=== PATIENT | female | born 1955 | race Caucasian/White ===

== ENCOUNTER → 2016-09-14 | Outpatient (CLI) | payer BC, OTHER ==
[2016-09-14 08:21] LABS: CHCM 33.8; HCT 49.4 % (34.0-46.0); HDW 2.52; HGB 16.1 gm/dL (11.4-16.0); MCH 31.1 pg (25.0-35.0); MCHC 32.6 g/dL (31.0-37.0); MCV 95.3 fL (80.0-100.0); Mean Platelet Volume 6.8; RBC 5.18 m/uL (3.80-5.40); RDW 12.5 % (11.5-15.5)
[2016-09-14 11:27] LABS: Anion Gap 10 mmol/L; Blood Urea Nitrogen 15 mg/dL (7-17); Calcium 9.6 mg/dL (8.4-10.2); Carbon Dioxide 29 mmol/L (22-30); Chloride 104 mmol/L (98-107); Glucose 106 mg/dL (74-99); Non-African American GFR(MDRD) >60 (>60 ml/min/1.73 sqM); Potassium 4.6 mmol/L (3.5-5.1); Sodium 143 mmol/L (137-145); Total Protein 7.2 g/dL (6.3-8.2)
[2016-09-14 11:28] LABS: ALT 38 U/L (9-52); AST 25 U/L (14-36); Alkaline Phosphatase 64 U/L (38-126); Cholesterol 175 mg/dL (<200); HDL Cholesterol 37 mg/dL (40-60); Total Bilirubin 0.9 mg/dL (0.2-1.3); Triglycerides 190 mg/dL (<150)
[2016-09-14 14:45] LABS: Hepatitis C Virus IgG Ab Reactive (Negative)
== END | disposition home or self-care (01) ==
LOC: LABWHC1 07:37
PROVIDERS: ATTEND Family Medicine
DX: E03.9 Hypothyroidism, unspecified (principal); I10 Essential (primary) hypertension; Z13.9 Encounter for screening, unspecified
CPT/HCPCS: 36415; 80053; 80061; 84439; 84443; 84481; 85027; 86803

== ENCOUNTER → 2016-09-17 | Outpatient (CLI) | payer BC, OTHER ==
[2016-09-20 09:48] LABS: HCV Qualitative Result Not detected (Not detected)
== END | disposition home or self-care (01) ==
LOC: LABWHC1 07:20
PROVIDERS: ATTEND Family Medicine
DX: Z09 Encounter for follow-up examination after completed treatment for conditions other than malignant neoplasm (principal); Z86.19 Personal history of other infectious and parasitic diseases
CPT/HCPCS: 36415; 87522

== ENCOUNTER 2016-11-06 08:26 | Emergency (ER) | payer BC, OTHER ==
[2016-11-06 08:32] VITALS: BP 132/87; PULSE 69; RESP 20; TEMP 98.8
[2016-11-06] MEDS ORDERED: ORPHENADRINE 30 MG/ML 2 ML VIAL IM STA (08:43)
[2016-11-06] MEDS ORDERED: KETOROLAC 60 MG/2 ML VIAL IM STA (08:43)
--- NOTE | 2016-11-06 08:48 | ED ---
Back Pain HPI - General Chief Complaint: Back Pain/Injury Stated Complaint: back pain Time Seen by Provider: 11/06/16 08:32 Source: patient Limitations: no limitations - History of Present Illness Initial Comments: 61-year-old female patient presents to emergency department today for complaints of low back pain that radiates down her left anterior thigh to just above her knee. Patient states that this started this morning when she was sitting down and went to stand up she felt that her back "wrenched". Patient states she did have a similar episode to this about 10 years ago and was told that she had a pinched nerve. Patient denies any injury or fall. Patient denies any loss of bowel or bladder control, numbness, tingling, saddle paresthesia, chest pain, shortness of breath, nausea, vomiting, dysuria, urinary urgency, urinary frequency, diarrhea, or constipation. Patient states she is having some right lower quadrant abdominal pain that started a few days ago. Patient states that she was told previously she had an ovarian cyst on ultrasound. - Related Data Home Medications Medication Instructions Recorded Confirmed Hydrochlorothiazide [Hydrodiuril] 25 mg PO DAILY 05/22/14 06/27/14 Levothyroxine Sodium [Synthroid] 50 mcg PO DAILY 05/22/14 06/27/14 Lisinopril [Zestril] 5 mg PO DAILY 05/22/14 06/27/14 Pravastatin Sodium [Pravachol] 40 mg PO DAILY 05/22/14 06/27/14 Previous Rx's Medication Instructions Recorded Meclizine [Antivert] 25 mg PO TID PRN #20 tab 05/22/14 Ondansetron [Zofran ODT] 8 mg PO Q8HR PRN #12 tab 05/22/14 Cyclobenzaprine [Flexeril] 10 mg PO TID PRN #15 tab 11/06/16 Hydrocodone/Acetaminophen [Waverly 1 tab PO Q6HR PRN #15 tab 11/06/16 5-325] Ibuprofen [Motrin] 600 mg PO Q8HR PRN #30 tab 11/06/16 Allergies Allergy/AdvReac Type Severity Reaction Status Date / Time No Known Allergies Allergy Verified 11/06/16 08:31 Review of Systems ROS Statement: Those systems with pertinent positive or pertinent negative responses have been documented in the HPI. ROS Other: All systems not noted in ROS Statement are negative. Past Medical History Past Medical History: Hypertension, Thyroid Disorder Additional Past Medical History / Comment(s): back pain History of Any Multi-Drug Resistant Organisms: None Reported Past Surgical History: Adenoidectomy, Cholecystectomy, Tonsillectomy Past Psychological History: No Psychological Hx Reported Smoking Status: Former smoker Past Alcohol Use History: Occasional Past Drug Use History: None Reported General Exam Limitations: no limitations General appearance: alert, in no apparent distress Head exam: Present: atraumatic, normocephalic, normal inspection Eye exam: Present: normal appearance, PERRL, EOMI. Absent: scleral icterus, conjunctival injection, periorbital swelling ENT exam: Present: normal exam, normal oropharynx, mucous membranes moist Neck exam: Present: normal inspection. Absent: tenderness, meningismus, lymphadenopathy Respiratory exam: Present: normal lung sounds bilaterally. Absent: respiratory distress, wheezes, rales, rhonchi, stridor Cardiovascular Exam: Present: regular rate, normal rhythm, normal heart sounds. Absent: systolic murmur, diastolic murmur, rubs, gallop, clicks GI/Abdominal exam: Present: soft, normal bowel sounds. Absent: distended, tenderness, guarding, rebound, rigid Extremities exam: Present: normal inspection, full ROM, normal capillary refill. Absent: tenderness, pedal edema, joint swelling, calf tenderness Back exam: Present: normal inspection. Absent: full ROM (Pain with twisting, forward bend, hyperextension.), tenderness, CVA tenderness (R), CVA tenderness ( L), muscle spasm, paraspinal tenderness, vertebral tenderness Expanded Back exam: Absent: saddle anesthesia Back exam: Positive Straight Leg Raise: Left Neurological exam: Present: alert, oriented X3, CN II-XII intact Psychiatric exam: Present: normal affect, normal mood Skin exam: Present: warm, dry, intact, normal color. Absent: rash Course Vital Signs 11/06/16 08:29 Temperature 98.8 F Pulse Rate 69 Respiratory 20 Rate Blood Pressure 132/87 O2 Sat by Pulse 97 Oximetry Medical Decision Making - Medical Decision Making 61-year-old female patient came in with complaints of lower back pain that radiated down her anterior left thigh. Symptoms and physical exam are consistent with musculoskeletal cause and sciatica. Patient also was complaining of some right lower quadrant abdominal pain that started a few days ago. Physical exam is unremarkable, abdomen nontender. Patient refuses urinalysis and further workup for this abdominal pain and states she will follow -up with her doctor for this. She will be given IM Toradol and Norflex for back pain. She'll be discharged with prescriptions for Motrin, Waverly, and Flexeril as well as instructions to apply warm, moist heat and to perform gentle stretching exercises. Patient instructed to follow up with her primary care doctor in 1-2 days for recheck. Patient instructed to return for any worsening, new, or concerning symptoms. Patient verbalizes understanding and agrees to this plan. Disposition Clinical Impression: Acute low back pain, Sciatica Disposition: HOME SELF-CARE Condition: Stable Instructions: Acute Low Back Pain (ED) Additional Instructions: Warm, moist, heat to the painful areas. Gentle stretching exercises. Activity as tolerated. Follow up with primary care physician in 1-2 days for recheck. Return for any worsening, new, or concerning symptoms. Prescriptions: Cyclobenzaprine [Flexeril] 10 mg PO TID PRN #15 tab PRN Reason: Muscle Spasm Hydrocodone/Acetaminophen [Waverly 5-325] 1 tab PO Q6HR PRN #15 tab PRN Reason: Pain Ibuprofen [Motrin] 600 mg PO Q8HR PRN #30 tab PRN Reason: Pain Referrals: Babak Fiore MD [Primary Care Provider] - 1-2 days Time of Disposition: 08:48
== END 2016-11-06 09:04 | disposition home or self-care (01) ==
LOC: EC 08:26
DX: M54.40 Lumbago with sciatica, unspecified side (principal); R10.31 Right lower quadrant pain; I10 Essential (primary) hypertension; E07.9 Disorder of thyroid, unspecified; Z87.891 Personal history of nicotine dependence; Z79.899 Other long term (current) drug therapy
CPT/HCPCS: 99283; 96372 ×2; J2360; J1885

== ENCOUNTER 2016-11-24 23:43 | Inpatient (IN) | payer BC ==
[2016-11-25] MEDS ORDERED: DILTIAZEM 125 MG in SODIUM CHLORIDE 0.9% 100 ML IV STA (00:39)
[2016-11-25] MEDS ORDERED: ASPIRIN 81 MG CHEW PO STA (00:39)
[2016-11-25] MEDS ORDERED: SODIUM CHLORIDE 0.9% 500 ML IV STA (00:39)
[2016-11-25 00:59] LABS: Basophils # (A) 0.1 k/uL (0-0.2); Basophils % (A) 2 %; CH 32.7; CHCM 33.9; Eosinophils # (A) 0.7 k/uL (0-0.7); Eosinophils % (A) 8 %; HCT 49.6 % (34.0-46.0); HGB 16.3 gm/dL (11.4-16.0); Luc # (Auto) 0.32; Luc % (Auto) 4; Lymphocytes # (A) 3.3 k/uL (1.0-4.8); Lymphocytes % (A) 37 %; MCH 31.8 pg (25.0-35.0); MCHC 32.8 g/dL (31.0-37.0); Mean Platelet Volume 7.2; Monocytes # (A) 0.6 k/uL (0-1.0); Monocytes % (A) 7 %; Neutrophils # (A) 3.8 k/uL (1.3-7.7); Neutrophils % (A) 43 %; RBC 5.11 m/uL (3.80-5.40); RDW 13.2 % (11.5-15.5); WBC 8.9 k/uL (3.8-10.6); WBC (Perox) 8.27
[2016-11-25 01:04] LABS: ALT 38 U/L (9-52); AST 30 U/L (14-36); Alkaline Phosphatase 57 U/L (38-126); Anion Gap 13 mmol/L; Blood Urea Nitrogen 18 mg/dL (7-17); Calcium 9.7 mg/dL (8.4-10.2); Carbon Dioxide 22 mmol/L (22-30); Chloride 106 mmol/L (98-107); Glucose 134 mg/dL (74-99); Non-African American GFR(MDRD) >60 (>60 ml/min/1.73 sqM); Potassium 4.2 mmol/L (3.5-5.1); Sodium 141 mmol/L (137-145); Total Bilirubin 0.5 mg/dL (0.2-1.3); Total Protein 7.1 g/dL (6.3-8.2)
[2016-11-25 01:12] LABS: Creatine Kinase 142 U/L (30-135)
[2016-11-25 01:15] LABS: Partial Thromboplastin Time 24.9 sec (22.0-30.0)
[2016-11-25 01:20] LABS: Prothrombin Time 10.6 sec (9.0-12.0)
[2016-11-25 01:25] LABS: Creatine Kinase MB 1.5 ng/mL (0.0-2.4); Troponin I <0.012 ng/mL (0.000-0.034)
--- NOTE | 2016-11-25 01:30 | XR ---
EXAM: XR Chest, 1 View. CLINICAL HISTORY: Reason: dysrhythmia TECHNIQUE: Frontal view of the chest. COMPARISON: No relevant prior studies available. FINDINGS: Lungs: Strandy right base opacity suggesting subsegmental atelectasis or fibrotic scarring. Lungs are otherwise clear without acute infiltrates or consolidations. Pleural space: No evidence of pneumothorax or pleural effusion. Heart: Heart size is within normal limits. Mediastinum: Mediastinal structures are unremarkable. Bones/joints: Unremarkable. IMPRESSION: Mild right base subsegmental atelectasis or fibrotic scarring. No evidence of acute cardiopulmonary disease.
--- NOTE | 2016-11-25 01:46 | ED ---
Arrhythmia/Palpitations HPI - General Chief Complaint: Arrhythmia/Palpitations Stated Complaint: heart racing Time Seen by Provider: 11/25/16 00:26 Source: patient Mode of arrival: ambulatory Limitations: no limitations - History of Present Illness Initial Comments: This patient is a 61-year-old woman who presents to be evaluated for a rapid heartbeat and some shortness of breath that started this evening. The patient states that she had gone to do her usual exercise and then afterwards noticed that she was having the symptoms. She denies previous history of arrhythmia. She is not having any chest pain, diaphoresis, nausea or vomiting. She does have a feeling of a tightness under her jaw area. MD Complaint: "heart racing" -: hour(s) Context: occurred during rest Associated Symptoms: shortness of breath - Related Data Home Medications Medication Instructions Recorded Confirmed Hydrochlorothiazide [Hydrodiuril] 25 mg PO DAILY 05/22/14 11/24/16 Levothyroxine Sodium [Synthroid] 50 mcg PO DAILY 05/22/14 11/24/16 Lisinopril [Zestril] 5 mg PO DAILY 05/22/14 11/24/16 Pravastatin Sodium [Pravachol] 40 mg PO DAILY 11/24/16 11/24/16 Allergies Allergy/AdvReac Type Severity Reaction Status Date / Time No Known Allergies Allergy Verified 11/24/16 23:48 Review of Systems ROS Statement: Those systems with pertinent positive or pertinent negative responses have been documented in the HPI. ROS Other: All systems not noted in ROS Statement are negative. Constitutional: Denies: fever, chills, weakness Eyes: Denies: vision change Respiratory: Reports: dyspnea. Denies: cough, wheezes Cardiovascular: Reports: palpitations. Denies: chest pain, orthopnea, edema, syncope Gastrointestinal: Denies: abdominal pain, nausea, vomiting Musculoskeletal: Denies: back pain Skin: Denies: rash Neurological: Denies: headache, weakness, numbness Psychiatric: Reports: anxiety Past Medical History Past Medical History: Hypertension, Thyroid Disorder Additional Past Medical History / Comment(s): back pain, palpitations History of Any Multi-Drug Resistant Organisms: None Reported Past Surgical History: Adenoidectomy, Cholecystectomy, Tonsillectomy Past Psychological History: No Psychological Hx Reported Smoking Status: Former smoker Past Alcohol Use History: Occasional Past Drug Use History: None Reported General Exam Limitations: no limitations General appearance: alert, in no apparent distress Head exam: Present: atraumatic, normocephalic, normal inspection Eye exam: Present: normal appearance. Absent: scleral icterus, conjunctival injection ENT exam: Present: normal oropharynx Neck exam: Present: normal inspection, full ROM Respiratory exam: Present: normal lung sounds bilaterally. Absent: respiratory distress, wheezes, rales, rhonchi, stridor Cardiovascular Exam: Present: tachycardia, irregular rhythm, normal heart sounds. Absent: systolic murmur, diastolic murmur, rubs, gallop GI/Abdominal exam: Present: soft. Absent: distended, tenderness, guarding, rebound, mass Extremities exam: Present: normal inspection, normal capillary refill. Absent: pedal edema, calf tenderness Neurological exam: Present: alert Skin exam: Present: warm, dry, intact, normal color. Absent: rash Course Vital Signs 11/24/16 23:44 Temperature 99.7 F H Pulse Rate 142 H Respiratory 24 Rate Blood Pressure 133/90 O2 Sat by Pulse 95 Oximetry - Reevaluation(s) Reevaluation #1: 11/25/16 01:50 The patient has reverted to sinus rhythm with the Cardizem. The patient's symptoms have resolved. Lungs remain clear to auscultation and heart is now regular rate and rhythm with the rate being in the 80s. 11/25/16 01:51 The repeat EKG shows sinus rhythm with a rate of approximately 72 bpm.. EKG Findings - EKG Results: EKG: interpreted by ERMD, normal axis, normal QRS, normal ST/T EKG shows: atrial fibrillation (Rhythm appears to be atrial fibrillation though flutter possible. Rate approximately 142 bpm.) Medical Decision Making - Medical Decision Making This patient is a 61-year-old woman with the acute onset of atrial fibrillation this evening. She also describes what may have been some anginal pain in the neck or throat that did accompany the tachycardia. The patient has family history that she states is strongly positive for heart disease. She has not had a stress test for number of years. Given these factors will admit the patient to have telemetry monitoring and serial cardiac enzymes as well as cardiology consultation. - Lab Data Result diagrams: 11/24/16 23:20 11/24/16 23:20 Lab Results 11/24/16 11/24/1617 Range/Units 23:20 23:20 23:20 WBC 8.9 (3.8-10.6) k/uL RBC 5.11 (3.80-5.40) m/uL Hgb 16.3 H (11.4-16.0) gm/dL Hct 49.6 H (34.0-46.0) % MCV 97.0 (80.0-100.0) fL MCH 31.8 (25.0-35.0) pg MCHC 32.8 (31.0-37.0) g/dL RDW 13.2 (11.5-15.5) % Plt Count 321 (150-450) k/uL Neutrophils % 43 % Lymphocytes % 37 % Monocytes % 7 % Eosinophils % 8 % Basophils % 2 % Neutrophils # 3.8 (1.3-7.7) k/uL Lymphocytes # 3.3 (1.0-4.8) k/uL Monocytes # 0.6 (0-1.0) k/uL Eosinophils # 0.7 (0-0.7) k/uL Basophils # 0.1 (0-0.2) k/uL PT (9.0-12.0) sec INR (<1.1) APTT (22.0-30.0) sec D-Dimer (<0.60) mg/L FEU Sodium 141 (137-145) mmol/L Potassium 4.2 (3.5-5.1) mmol/L Chloride 106 (98-107) mmol/L Carbon Dioxide 22 (22-30) mmol/L Anion Gap 13 mmol/L BUN 18 H (7-17) mg/dL Creatinine 0.80 (0.52-1.04) mg/dL Est GFR (MDRD) Af Amer >60 (>60 ml/min/1.73 sqM) Est GFR (MDRD) Non-Af >60 (>60 ml/min/1.73 sqM) Glucose 134 H (74-99) mg/dL Calcium 9.7 (8.4-10.2) mg/dL Magnesium 2.0 (1.6-2.3) mg/dL Total Bilirubin 0.5 (0.2-1.3) mg/dL AST 30 (14-36) U/L ALT 38 (9-52) U/L Alkaline Phosphatase 57 (38-126) U/L Total Creatine Kinase 142 H (30-135) U/L CK-MB (CK-2) 1.5 (0.0-2.4) ng/mL CK-MB (CK-2) Rel Index 1.1 Troponin I <0.012 (0.000-0.034) ng/mL Total Protein 7.1 (6.3-8.2) g/dL Albumin 4.1 (3.5-5.0) g/dL TSH 2.610 (0.465-4.680) mIU/L 11/24/16 Range/Units 23:20 WBC (3.8-10.6) k/uL RBC (3.80-5.40) m/uL Hgb (11.4-16.0) gm/dL Hct (34.0-46.0) % MCV (80.0-100.0) fL MCH (25.0-35.0) pg MCHC (31.0-37.0) g/dL RDW (11.5-15.5) % Plt Count (150-450) k/uL Neutrophils % % Lymphocytes % % Monocytes % % Eosinophils % % Basophils % % Neutrophils # (1.3-7.7) k/uL Lymphocytes # (1.0-4.8) k/uL Monocytes # (0-1.0) k/uL Eosinophils # (0-0.7) k/uL Basophils # (0-0.2) k/uL PT 10.6 (9.0-12.0) sec INR 1.0 (<1.1) APTT 24.9 (22.0-30.0) sec D-Dimer 0.54 (<0.60) mg/L FEU Sodium (137-145) mmol/L Potassium (3.5-5.1) mmol/L Chloride (98-107) mmol/L Carbon Dioxide (22-30) mmol/L Anion Gap mmol/L BUN (7-17) mg/dL Creatinine (0.52-1.04) mg/dL Est GFR (MDRD) Af Amer (>60 ml/min/1.73 sqM) Est GFR (MDRD) Non-Af (>60 ml/min/1.73 sqM) Glucose (74-99) mg/dL Calcium (8.4-10.2) mg/dL Magnesium (1.6-2.3) mg/dL Total Bilirubin (0.2-1.3) mg/dL AST (14-36) U/L ALT (9-52) U/L Alkaline Phosphatase (38-126) U/L Total Creatine Kinase (30-135) U/L CK-MB (CK-2) (0.0-2.4) ng/mL CK-MB (CK-2) Rel Index Troponin I (0.000-0.034) ng/mL Total Protein (6.3-8.2) g/dL Albumin (3.5-5.0) g/dL TSH (0.465-4.680) mIU/L Critical Care Time Critical Care Time: Yes (30 minutes) Disposition Clinical Impression: Atrial fibrillation, Chest pain Disposition: HOME SELF-CARE Condition: Fair Referrals: Babak Fiore MD [Primary Care Provider] - 1-2 days
[2016-11-25] MEDS ORDERED: NITROGLYCERIN SL TABS 0.4 MG TAB SUBLINGUAL PRN (01:52)
[2016-11-25 07:21] LABS: Creatine Kinase 106 U/L (30-135)
[2016-11-25 07:33] LABS: Creatine Kinase MB 1.3 ng/mL (0.0-2.4); Troponin I <0.012 ng/mL (0.000-0.034)
--- NOTE | 2016-11-25 09:38 | P.CRDCN ---
History of Present Illness Consult date: 11/25/16 Requesting physician: Jb Leo Consult reason: atrial fibrillation Chief complaint: Palpitations History of present illness: This is a pleasant 61-year-old female with history of hypertension, Hailee's, prior history of smoking, who presents to the hospital with symptoms of feeling her heart racing fast with associated lightheadedness and shaking. She states that she was working out in the pool at the [facility] when she first noticed the symptoms, she drank a lot of water hoping that the symptoms would subside, in the evening she still felt her heart racing fast, was afraid to go to sleep and came to the emergency room for further evaluation. According to the patient, on almost a daily basis she does notice her heart racing fast and irregular, although it usually subsides within seconds. This occasion was different in the fact that it persisted. Patient states she does drink a minimum of 3-4 cups of coffee per day. No alcohol. She denies any chest pressure or heaviness. EKG on arrival showed atrial fibrillation with a rapid ventricular response, blood pressure was 133/90 with a heart rate of 142 at that time. Temperature on admission 99.7. Subsequently the patient did convert to normal sinus rhythm at the time of my examination continues to be in a normal sinus rhythm. Laboratory data was reviewed, WBC 8.9, hemoglobin 16.3, d-dimer 0.5, potassium 4.2, BUN 18, creatinine 0.8. Troponins have been negative 2. Chest x-ray was performed which revealed mild right base subsegmental atelectasis or fibrotic scarring no acute infiltrates or consolidation. At the time of my examination this morning, patient feels well, denies any further palpitations, no dizziness or lightheadedness. She is currently on aspirin, Cardizem drip at 5 mg per hour, Hydrocort Dyazide, Synthroid 50 g daily, Zestril 5 mg daily, and pravastatin 40 mg 1 tablet daily. Patient was not initiated on blood thinners. Past Medical History Past Medical History: Hypertension, Thyroid Disorder Additional Past Medical History / Comment(s): back pain, palpitations History of Any Multi-Drug Resistant Organisms: None Reported Past Surgical History: Adenoidectomy, Cholecystectomy, Tonsillectomy Past Psychological History: No Psychological Hx Reported Smoking Status: Former smoker Past Alcohol Use History: Occasional Past Drug Use History: None Reported Medications and Allergies Home Medications Medication Instructions Recorded Confirmed Type Levothyroxine Sodium [Synthroid] 50 mcg PO DAILY 05/22/14 11/25/16 History Lisinopril [Zestril] 5 mg PO DAILY 05/22/14 11/25/16 History Hydrochlorothiazide [Hydrodiuril] 12.5 mg PO DAILY 11/25/16 11/25/16 History Allergies Allergy/AdvReac Type Severity Reaction Status Date / Time No Known Allergies Allergy Verified 11/24/16 23:48 Physical Exam Vitals: Vital Signs Pulse Resp BP Pulse Ox 11/25/16 07:15 65 18 116/71 96 11/25/16 04:46 64 18 100/59 96 11/25/16 03:00 65 18 96/59 97 11/25/16 02:00 91 18 109/80 96 PHYSICAL EXAMINATION: HEENT: Head is atraumatic, normocephalic. Pupils equal, round. Neck is supple. There is no elevated jugular venous pressure. HEART EXAMINATION: Heart S1, S2 normal. No murmur or gallop heard. CHEST EXAMINATION: Lungs are clear with diminished air entry to bilateral bases. ABDOMEN: Soft, nontender. Bowel sounds are heard. No organomegaly noted. EXTREMITIES: 2+ peripheral pulses with no evidence of peripheral edema and no calf tenderness noted. NEUROLOGIC patient is awake, alert and oriented -3. . Results 11/24/16 23:20 11/24/16 23:20 Cardiac Enzymes 11/25/16 Range/Units 06:35 CK-MB (CK-2) 1.3 (0.0-2.4) ng/mL Troponin I <0.012 (0.000-0.034) ng/mL Current Medications Generic Name Dose Route Start Last Admin Trade Name Freq PRN Reason Stop Dose Admin Aspirin 325 mg 11/26/16 09:00 Aspirin PO DAILY GUERO Hydrochlorothiazide 25 mg 11/25/16 09:00 Hydrodiuril PO DAILY GUERO Diltiazem HCl 125 mg/ Sodium 125 mls @ 5 mls/hr 11/25/16 00:39 11/25/16 01:03 Chloride IV 11/26/16 00:38 5 mg/hr .Q24H STA 5 mls/hr Protocol Administration 5 MG/HR Levothyroxine Sodium 50 mcg 11/25/16 09:00 Synthroid PO DAILY [facility] Lisinopril 5 mg 11/25/16 09:00 Zestril PO DAILY [facility] Nitroglycerin 0.4 mg 11/25/16 01:52 Nitrostat SUBLINGUAL Q5M PRN Chest Pain Pravastatin Sodium 40 mg 11/25/16 09:00 Pravachol PO DAILY [facility] Sodium Chloride 10 ml 11/25/16 09:00 Saline Flush IV BID [facility] EKG Interpretations (text) Initial EKG showed atrial fibrillation with a rapid ventricular response. This morning's EKG shows normal sinus rhythm with no acute changes. Assessment and Plan Plan: Assessment and plan #1 atrial fibrillation with rapid ventricular response, appears to be of new onset. Paroxysmal in nature. Currently in normal sinus rhythm. #2 history of hypertension #3 history of Hailee's #4 prior history of smoking Plan We will obtain an echocardiogram with Doppler study. We will also request a free T4 and a TSH level be obtained. We'll discontinue the patient's IV Cardizem drip. Patient's chadsvasc score is 2, which puts her at a moderate high risk. We will check to see if the patient has coverage for one of the newer anticoagulants. Further recommendations will be based on these findings and patient's clinical course. DNP note has been reviewed, I agree with a documented findings and plan of care. Patient was seen and examined.
[2016-11-25] MEDS: LEVOTHYROXINE 50 MCG TAB PO SCH (10:27)
[2016-11-25] MEDS: HYDROCHLOROTHIAZIDE 25 MG TAB PO SCH (10:27)
[2016-11-25] MEDS: LISINOPRIL 5 MG TAB PO SCH (10:27)
[2016-11-25] MEDS: PRAVASTATIN SODIUM 40 MG TAB PO SCH (10:30)
[2016-11-25] MEDS: APIXABAN 5 MG TAB PO SCH ×2 (10:35→20:50)
--- NOTE | 2016-11-25 11:49 | ECHOF ---
Referral Reason:afib MEASUREMENTS -------- HEIGHT: 162.6 cm WEIGHT: 93.4 kg BP: 116/71 IVSd: 1.1 cm (0.6 - 1.1) LVIDd: 3.1 cm (3.9 - 5.3) LVPWd: 1.3 cm (0.6 - 1.1) IVSs: 1.7 cm LVIDs: 1.2 cm LVPWs: 1.4 cm Ao Diam: 2.8 cm (2.0 - 3.7) AV Cusp: 1.9 cm (1.5 - 2.6) LA Diam: 2.8 cm (2.7 - 3.8) MV EXCURSION: 17.007 mm (> 18.000) MV EF SLOPE: 121 mm/s (70 - 150) EPSS: 0.3 cm MV E Francisco: 0.66 m/s MV DecT: 220 ms MV A Francisco: 0.63 m/s MV E/A Ratio: 1.05 RAP: 5.00 mmHg RVSP: 9.49 mmHg FINDINGS -------- Sinus rhythm. This was a technically good study. There is mild concentric left ventricular hypertrophy. Overall left ventricular systolic function is normal with, an EF between 55 - 60 %. The right ventricle is normal in size and function. The left atrium is normal in size. The right atrium is normal in size. The aortic valve is trileaflet, and appears structurally normal. No aortic stenosis or regurgitation. There is trace mitral regurgitation. Trace tricuspid regurgitation present. The right ventricular systolic pressure, as measured by Doppler, is 9.49mmHg. Pulmonic valve appears structurally normal. The aortic root, ascending aorta and aortic arch are normal. The pericardium is normal. CONCLUSIONS -------- 1. Sinus rhythm. 2. Trace tricuspid regurgitation present. 3. The right ventricular systolic pressure, as measured by Doppler, is 9.49mmHg. 4. Pulmonic valve appears structurally normal. 5. The aortic root, ascending aorta and aortic arch are normal. 6. The pericardium is normal. 7. This was a technically good study. 8. There is mild concentric left ventricular hypertrophy. 9. Overall left ventricular systolic function is normal with, an EF between 55 - 60 %. 10. The right ventricle is normal in size and function. 11. The left atrium is normal in size. 12. The right atrium is normal in size. 13. The aortic valve is trileaflet, and appears structurally normal. No aortic stenosis or regurgitation. 14. There is trace mitral regurgitation. BICYCLE INSPECTOR: Wanda Palacios RDCS
[2016-11-25 12:32] LABS: Creatine Kinase 94 U/L (30-135)
[2016-11-25 12:45] LABS: Creatine Kinase MB 1.1 ng/mL (0.0-2.4); Troponin I <0.012 ng/mL (0.000-0.034)
[2016-11-25] MEDS: METOPROLOL TARTRATE 12.5 MG TAB PO SCH ×2 (16:32→20:51)
--- NOTE | 2016-11-25 18:18 | HP ---
DATE OF ADMISSION: 11/25/2016 PRESENTING COMPLAINT: Palpitation. HISTORY OF PRESENTING COMPLAINT: This is a pleasant 61-year-old patient of Dr. Fiore, chronic stable medical conditions include hypertension, hypothyroid, and insomnia. The patient lives at the [facility] and just felt rundown and also felt the heart racing, slightly short of breath, felt lightheaded. Some discomfort in the jaw and decided to come in. Found to be in atrial fibrillation with rapid ventricular rate. Patient is put on IV Cardizem then patient subsequently converted to the telemetry floor. The patient does drink a lot of caffeine. Denies any obvious chest pressure. REVIEW OF SYSTEMS: CONSTITUTIONAL: Tired. HEENT: None. RESPIRATORY: As above. CARDIOVASCULAR: Above. GASTROINTESTINAL: None. GENITOURINARY: None. MUSCULOSKELETAL: None. DERMATOLOGIC: None. HEMATOLOGIC: None. LYMPHATICS: None. PSYCHIATRY: Trouble sleeping. NEUROLOGICAL: None. Past history of hypertension, hypothyroid, insomnia. PAST SURGICAL HISTORY: Appendectomy, cholecystectomy, tonsillectomy. SOCIAL HISTORY: The patient has an adult daughter and a grandchild and 2 foster children. Does not smoke. Alcohol occasionally. Drinks a lot of caffeine. Has foster children. FAMILY HISTORY: Coronary artery disease and diabetes. Father had liver cancer. HOME MEDICATIONS: 1. Hydrochlorothiazide 25 mg p.o. daily. 2. Synthroid 50 mcg p.o. daily. 3. Zestril 5 mg p.o. daily. 4. Pravachol 40 mg p.o. daily. ALLERGIES: None. PHYSICAL EXAMINATION: Vital signs on presentation: Temperature 99.7, pulse 142, respirations 24, blood pressure 133/90, pulse ox 95% on room air. GENERAL APPEARANCE: Well built, BMI of 35.4, sitting up, not in distress. EYES: Pupils equal. Conjunctivae normal. HEENT: External appearance of nose and ears normal. Oral cavity normal. NECK: JVD not raised. Mass not palpable. RESPIRATORY: Effort normal. LUNGS: Clear. CARDIOVASCULAR: First and second sounds normal. No edema. ABDOMEN: Soft, nontender. Liver and spleen not palpable. LYMPHATIC: No lymph node palpable in neck or axillae. PSYCHIATRY: Alert and oriented x3. Mood and affect normal. NEUROLOGICAL: Pupils equal. Cranial nerves grossly intact. Power and sensation grossly intact. INVESTIGATIONS: EKG shows atrial flutter with rapid ventricular rate on presentation. EKG shows some atelectasis. A 2-D echocardiogram, preserved LV function. ASSESSMENT: 1. New onset paroxysmal atrial flutter, did convert to sinus rhythm within 24 hours by IV Cardizem. Patient had a similar episode before. 2. Essential hypertension. 3. Hypothyroidism. 4. Obesity, body mass index of 35.4. 5. Excessive nicotine intake in the form of coffee. 6. Chronic insomnia, idiopathic. PLAN: Cardiology was consulted. Patient initially was put on IV Cardizem drip. Patient did convert over to sinus rhythm. Lopressor was started. Patient will need anticoagulation. Care was discussed with the patient and also counseled against taking caffeine.
[2016-11-26] MEDS: LEVOTHYROXINE 50 MCG TAB PO SCH (08:07)
[2016-11-26] MEDS: APIXABAN 5 MG TAB PO SCH (08:07)
[2016-11-26] MEDS: HYDROCHLOROTHIAZIDE 25 MG TAB PO SCH (08:07)
[2016-11-26] MEDS: LISINOPRIL 5 MG TAB PO SCH (08:08)
[2016-11-26] MEDS: METOPROLOL TARTRATE 12.5 MG TAB PO SCH (08:08)
[2016-11-26] MEDS: PRAVASTATIN SODIUM 40 MG TAB PO SCH (08:09)
[2016-11-26] MEDS ORDERED: ASPIRIN 81 MG CHEW PO SCH (09:00)
[2016-11-26] MEDS ORDERED: ASPIRIN 325 MG TAB PO SCH (09:00)
[2016-11-26 10:34] VITALS: RESP 16; TEMP 98.2
--- NOTE | 2016-11-26 15:09 | PN ---
Mrs. Mckenna is in a sinus rhythm this morning, doing well, denies chest pain, stable, feeling well, walking around without symptoms. She is going to go home on Lopressor and Eliquis. Advised to see me in a couple of weeks, to call me sooner for question, concern or problem. Vital signs are stable. S1, S2 heard normally. Lungs are clear. Abdomen and lower extremity exam is unchanged.
[2016-11-26 16:11] VITALS: BP 112/65; PULSE 63
--- NOTE | 2016-11-27 12:02 | DS ---
DATE OF ADMISSION: 11/25/2016 DATE OF DISCHARGE: 11/26/2016 FINAL DIAGNOSES: 1. Paroxysmal atrial flutter fibrillation. 2. Essential hypertension. 3. Hypothyroidism. 4. Obesity, body mass index of 35.4. 5. Excessive nicotine intake in the form of coffee. 6. Chronic insomnia, idiopathic. HOSPITAL COURSE: This patient presented with palpitation, found to be A. flutter rapid ventricular rate, put on IV Cardizem drip, ( ) into sinus rhythm. A 2-D echocardiogram showed preserved LV function. Patient advised against excessive coffee intake. Patient's TSH was normal. LDL was 111. Troponins were negative. Patient is asymptomatic up and about at the time of discharge. On exam, lungs are clear. CARDIOVASCULAR: First and second sounds normal. CONSULTATION: Dr. Cheyenne Mata from cardiology. DISCHARGE MEDICATIONS: 1. Synthroid 50 mcg p.o. daily. 2. Eliquis 5 mg p.o. b.i.d. 3. Lopressor 12.5 p.o. b.i.d. 4. Pravachol 40 mg p.o. daily. Patient's questions were addressed including anticoagulation. Follow up with Dr. Cheyenne Mata in 2 weeks; Dr. Fiore in one week.
== END 2016-11-26 16:44 | disposition home or self-care (01) | DRG 310 ==
LOC: EC 23:43 → 6SEL 11-25 01:52 → 2CATHESU 11-25 07:53 → 6SEL 11-25 11:30
PROVIDERS: ADMIT Hospitalist; ATTEND Hospitalist
DX: I48.92 Unspecified atrial flutter (principal); I10 Essential (primary) hypertension; G47.9 Sleep disorder, unspecified; E06.3 Autoimmune thyroiditis; F51.01 Primary insomnia; I48.0 Paroxysmal atrial fibrillation; M54.9 Dorsalgia, unspecified; R07.9 Chest pain, unspecified; R42 Dizziness and giddiness; F41.9 Anxiety disorder, unspecified; R06.02 Shortness of breath; E66.9 Obesity, unspecified; Z68.35 Body mass index [BMI] 35.0-35.9, adult; Z83.3 Family history of diabetes mellitus; Z80.0 Family history of malignant neoplasm of digestive organs; Z82.49 Family history of ischemic heart disease and other diseases of the circulatory system; Z79.899 Other long term (current) drug therapy; Z87.891 Personal history of nicotine dependence; Z90.49 Acquired absence of other specified parts of digestive tract
CPT/HCPCS: 36415; 71010; 80053; 80061; 82550; 82553; 83735; 84439; 84443; 84484; 85025; 85379; 85610; 85730; 93005; 93306; 99291

== ENCOUNTER → 2017-08-26 | Outpatient (CLI) | payer BC ==
[2017-08-26 10:09] LABS: HCT 50.8 % (34.0-46.0); HGB 16.2 gm/dL (11.4-16.0); MCH 30.5 pg (25.0-35.0); MCHC 31.8 g/dL (31.0-37.0); MCV 96.1 fL (80.0-100.0); Mean Platelet Volume 7.3; Platelet Count 340 k/uL (150-450); RBC 5.29 m/uL (3.80-5.40)
[2017-08-26 10:24] LABS: ALT 53 U/L (9-52); AST 36 U/L (14-36); Albumin 4.3 g/dL (3.5-5.0); Alkaline Phosphatase 55 U/L (38-126); Anion Gap 12 mmol/L; Blood Urea Nitrogen 18 mg/dL (7-17); Calcium 9.8 mg/dL (8.4-10.2); Carbon Dioxide 28 mmol/L (22-30); Chloride 102 mmol/L (98-107); Cholesterol 128 mg/dL (<200); Glucose 110 mg/dL (74-99); HDL Cholesterol 43 mg/dL (40-60); LDL Cholesterol,Calculated 66 mg/dL (0-99); Potassium 4.2 mmol/L (3.5-5.1); Sodium 142 mmol/L (137-145); Total Bilirubin 0.8 mg/dL (0.2-1.3); Total Protein 7.2 g/dL (6.3-8.2); Triglycerides 95 mg/dL (<150)
== END | disposition home or self-care (01) ==
LOC: LABWHC1 09:47
PROVIDERS: ATTEND Family Medicine
DX: Z00.00 Encounter for general adult medical examination without abnormal findings (principal)
CPT/HCPCS: 36415; 80053; 80061; 85027

== ENCOUNTER 2017-11-17 19:47 | Emergency (ER) | payer BC ==
[2017-11-17 19:50] VITALS: BP 130/93; PULSE 84; RESP 18; TEMP 98.5
[2017-11-17] MEDS ORDERED: DIAZEPAM 5 MG/ML 2 ML INJ IM STA (20:25)
[2017-11-17] MEDS ORDERED: KETOROLAC 60 MG/2 ML VIAL IM STA (20:25)
[2017-11-17] MEDS ORDERED: HYDROcodone/APAP 5-325MG 1 EACH TAB PO STA ×2 (20:26→20:47)
--- NOTE | 2017-11-17 20:27 | ED ---
Back Pain HPI - General Chief Complaint: Back Pain/Injury Stated Complaint: Back pain Time Seen by Provider: 11/17/17 19:52 Source: patient Limitations: no limitations - History of Present Illness Initial Comments: 62-year-old female with past medical history of lumbar radicular with a presented for evaluation of low back pain with radiation down the left leg. 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 She states that this is happened before and has had conservative management , coming to the ED for evaluation, and treated with IM injections and sent home. She states that she has never followed up with an orthopedic surgeon for this and is never required back surgery. She denies lower extremity weakness, bowel or bladder irregularities, midline back tenderness or any saddle anesthesia. - Related Data Home Medications Medication Instructions Recorded Confirmed Levothyroxine Sodium [Synthroid] 50 mcg PO DAILY 05/22/14 11/17/17 Citalopram Hydrobromide [CeleXA] 20 mg PO DAILY 11/17/17 11/17/17 Hydrochlorothiazide [Hydrodiuril] 12.5 mg PO DAILY 11/17/17 11/17/17 Lisinopril [Prinivil] 5 mg PO DAILY 11/17/17 11/17/17 Previous Rx's Medication Instructions Recorded Apixaban [Eliquis] 5 mg PO BID #60 tab 11/25/16 Metoprolol Tartrate [Lopressor] 12.5 mg PO BID #60 tab 11/25/16 Pravastatin Sodium [Pravachol] 40 mg PO DAILY tab 11/25/16 Diazepam [Valium] 5 mg PO HS #3 tab 11/17/17 HYDROcodone/APAP 5-325MG [[place] 1 - 2 tab PO Q6HR PRN #10 tab 11/17/17 5-325] Ibuprofen [Motrin] 800 mg PO Q6HR #30 tab 11/17/17 Allergies Allergy/AdvReac Type Severity Reaction Status Date / Time No Known Allergies Allergy Verified 11/17/17 20:36 Review of Systems ROS Statement: Those systems with pertinent positive or pertinent negative responses have been documented in the HPI. ROS Other: All systems not noted in ROS Statement are negative. Constitutional: Denies: fever, chills Eyes: Denies: eye pain, vision change Respiratory: Denies: cough, dyspnea Cardiovascular: Denies: chest pain, palpitations Gastrointestinal: Denies: abdominal pain, nausea, vomiting Genitourinary: Reports: other (Denies urinary hesitancy). Denies: frequency Musculoskeletal: Reports: back pain. Denies: myalgia Neurological: Reports: abnormal gait (Limping due to pain), other (Pain radiating down the left leg). Denies: weakness, numbness Past Medical History Past Medical History: Hypertension, Thyroid Disorder Additional Past Medical History / Comment(s): back pain, palpitations History of Any Multi-Drug Resistant Organisms: None Reported Past Surgical History: Adenoidectomy, Cholecystectomy, Tonsillectomy Additional Past Surgical History / Comment(s): ESS, colonoscopy. Past Anesthesia/Blood Transfusion Reactions: No Reported Reaction, Motion Sickness Past Psychological History: No Psychological Hx Reported Smoking Status: Former smoker Past Alcohol Use History: Occasional Past Drug Use History: None Reported - Past Family History Father Family Medical History: Cancer, Coronary Artery Disease (CAD), Diabetes Mellitus Additional Family Medical History / Comment(s): Father had liver cancer and at the age of 67yrs. Mother Family Medical History: Cancer Additional Family Medical History / Comment(s): Grave's dx, from lung cancer with mets at the age of 72 yrs. General Exam Limitations: no limitations General appearance: alert, in no apparent distress Head exam: Present: atraumatic, normocephalic Respiratory exam: Present: normal lung sounds bilaterally. Absent: respiratory distress Cardiovascular Exam: Present: regular rate, normal rhythm GI/Abdominal exam: Present: soft. Absent: distended, tenderness Rectal exam: Present: deferred Extremities exam: Present: normal inspection, full ROM Back exam: Present: full ROM, tenderness, muscle spasm, paraspinal tenderness. Absent: CVA tenderness (R), CVA tenderness (L), vertebral tenderness Neurological exam: Present: alert, oriented X3, abnormal gait, reflexes normal, other (Negative straight leg test bilaterally). 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 On physical examination she appears to be in mild distress however during conversation she relaxes to a baseline mentation without any apparent distress. Cranial nerves II-12 are intact without focal neurologic deficit however she is ambulated with a mild limp due to the pain. Straight leg test is negative bilaterally however pain is consistent with lumbar radiculopathy as is the etiology. There is no saddle anesthesia, midline lumbar tenderness, and she denies any loss of bowel function or urinary hesitancy. At this point well treat with NSAIDs, narcotics, and muscle relaxers and discharged home with instructions to follow-up with her primary care physician. She was further advised to return to this facility if her symptoms worsen or persist. The patient nausea and understanding of all information provided and agreed with this plan of care. Disposition Clinical Impression: Lumbar radiculopathy, acute Disposition: HOME SELF-CARE Condition: Stable Instructions: Acute Low Back Pain (ED) Additional Instructions: Please use medication as discussed. Please follow up with family doctor if symptoms have not improved over the next two days. Please return to the emergency room if your symptoms increase or worsen or for any other concerns. Prescriptions: Diazepam [Valium] 5 mg PO HS #3 tab HYDROcodone/APAP 5-325MG [[place] 5-325] 1 - 2 tab PO Q6HR PRN #10 tab PRN Reason: Analgesia Ibuprofen [Motrin] 800 mg PO Q6HR #30 tab Referrals: Babak Fiore MD [Primary Care Provider] - 1-2 days Time of Disposition: 20:27
== END 2017-11-17 20:55 | disposition home or self-care (01) ==
LOC: EC 19:47
DX: M54.16 Radiculopathy, lumbar region (principal); I10 Essential (primary) hypertension; E07.9 Disorder of thyroid, unspecified; Z87.891 Personal history of nicotine dependence; Z79.899 Other long term (current) drug therapy; X50.1XXA Overexertion from prolonged static or awkward postures, initial encounter; Y93.89 Activity, other specified
CPT/HCPCS: 99283; 96372 ×2; J3360; J1885

== ENCOUNTER 2018-08-22 10:25 | Emergency (ER) | payer BC ==
[2018-08-22] MEDS ORDERED: SODIUM CHLORIDE 0.9% 1,000 ML IV STA ×2 (10:32→13:06)
--- NOTE | 2018-08-22 10:42 | ED ---
Recheck HPI - General Chief Complaint: Recheck/Abnormal Lab/Rx Stated Complaint: High sugar Time Seen by Provider: 08/22/18 10:32 Source: patient, RN notes reviewed, old records reviewed Mode of arrival: ambulatory Limitations: no limitations - History of Present Illness Initial Comments: This is a 63-year-old female the ER for evaluation of elevated blood sugar not feeling well weakness dehydration. No other medical history of diabetes, took blood sugar today, as this was patient's friends blood sugar and she had been urinating and eating more than normal as well as been more thirsty. Again patient denies prior history of diabetes. Currently denying any pain in his feels very dehydrated feels very weak MD Complaint: abnormal lab (hyperglycemia) -: unknown Returns Today for: Called Because of Abnormal Lab/Test Symptoms Since Prior Visit: no new symptoms (weakness) Context: called for abnormal lab result Associated Symptoms: none Treatments Prior to Arrival: other (none) - Related Data Home Medications Medication Instructions Recorded Confirmed Levothyroxine Sodium [Synthroid] 50 mcg PO DAILY 05/22/14 08/22/18 Citalopram Hydrobromide [CeleXA] 20 mg PO DAILY 11/17/17 08/22/18 Lisinopril [Prinivil] 5 mg PO DAILY 11/17/17 08/22/18 Hydrochlorothiazide 12.5 mg PO DAILY 08/22/18 08/22/18 Pravastatin Sodium [Pravachol] 40 mg PO HS 08/22/18 08/22/18 Previous Rx's Medication Instructions Recorded Apixaban [Eliquis] 5 mg PO BID #60 tab 11/25/16 Metoprolol Tartrate [Lopressor] 12.5 mg PO BID #60 tab 11/25/16 metFORMIN HCL [Glucophage] 500 mg PO BID #60 tab 08/22/18 Allergies Allergy/AdvReac Type Severity Reaction Status Date / Time No Known Allergies Allergy Verified 08/22/18 10:58 Review of Systems ROS Statement: Those systems with pertinent positive or pertinent negative responses have been documented in the HPI. ROS Other: All systems not noted in ROS Statement are negative. Past Medical History Past Medical History: Hypertension, Thyroid Disorder Additional Past Medical History / Comment(s): back pain, palpitations History of Any Multi-Drug Resistant Organisms: None Reported Past Surgical History: Adenoidectomy, Cholecystectomy, Tonsillectomy Additional Past Surgical History / Comment(s): ESS, colonoscopy. Past Anesthesia/Blood Transfusion Reactions: No Reported Reaction, Motion Sickness Past Psychological History: No Psychological Hx Reported Smoking Status: Former smoker Past Alcohol Use History: Occasional Past Drug Use History: None Reported - Past Family History Father Family Medical History: Cancer, Coronary Artery Disease (CAD), Diabetes Mellitus Additional Family Medical History / Comment(s): Father had liver cancer and at the age of 67yrs. Mother Family Medical History: Cancer Additional Family Medical History / Comment(s): Grave's dx, from lung cancer with mets at the age of 72 yrs. General Exam Limitations: no limitations General appearance: alert, in no apparent distress Head exam: Present: atraumatic, normocephalic, normal inspection Eye exam: Present: normal appearance, PERRL, EOMI. Absent: scleral icterus, conjunctival injection, periorbital swelling ENT exam: Present: normal exam, mucous membranes moist Neck exam: Present: normal inspection. Absent: tenderness, meningismus, lymphadenopathy Respiratory exam: Present: normal lung sounds bilaterally. Absent: respiratory distress, wheezes, rales, rhonchi, stridor Cardiovascular Exam: Present: regular rate, normal rhythm, normal heart sounds. Absent: systolic murmur, diastolic murmur, rubs, gallop, clicks GI/Abdominal exam: Present: soft, normal bowel sounds. Absent: distended, tenderness, guarding, rebound, rigid Extremities exam: Present: normal inspection, full ROM, normal capillary refill. Absent: tenderness, pedal edema, joint swelling, calf tenderness Back exam: Present: normal inspection Neurological exam: Present: alert, oriented X3, CN II-XII intact Psychiatric exam: Present: normal affect, normal mood Skin exam: Present: warm, dry, intact, normal color. Absent: rash Course Vital Signs 08/22/18 08/22/18 10:27 13:05 Temperature 98.0 F Pulse Rate 75 64 Respiratory 18 18 Rate Blood Pressure 121/85 123/80 O2 Sat by Pulse 99 97 Oximetry - Reevaluation(s) Reevaluation #1: 08/22/18 13:13 medical record is reviewed Reevaluation #2: 08/22/18 13:13 patients blood sugar is significantly improved Reevaluation #3: 08/22/18 13:13 patient will be discharged on metformin, follow-up with primary care regarding further evaluation of new onset diabetes Medical Decision Making - Medical Decision Making 63 female the ER for evaluation, patient symptoms are much improved with IV hydration here in the emergency room. Patient given diabetic education can be discharged home - Lab Data Result diagrams: 08/22/18 11:08 08/22/18 11:08 Lab Results 08/22/18 08/22/18 08/22/18 Range/Units 11:08 11:08 11:08 WBC (3.8-10.6) k/uL RBC (3.80-5.40) m/uL Hgb (11.4-16.0) gm/dL Hct (34.0-46.0) % MCV (80.0-100.0) fL MCH (25.0-35.0) pg MCHC (31.0-37.0) g/dL RDW (11.5-15.5) % Plt Count (150-450) k/uL Neutrophils % % Lymphocytes % % Monocytes % % Eosinophils % % Basophils % % Neutrophils # (1.3-7.7) k/uL Lymphocytes # (1.0-4.8) k/uL Monocytes # (0-1.0) k/uL Eosinophils # (0-0.7) k/uL Basophils # (0-0.2) k/uL Sodium 135 L (137-145) mmol/L Potassium 4.4 (3.5-5.1) mmol/L Chloride 99 (98-107) mmol/L Carbon Dioxide 24 (22-30) mmol/L Anion Gap 12 mmol/L BUN 20 H (7-17) mg/dL Creatinine 0.77 (0.52-1.04) mg/dL Est GFR (CKD-EPI)AfAm >90 (>60 ml/min/1.73 sqM) Est GFR (CKD-EPI)NonAf 84 (>60 ml/min/1.73 sqM) Glucose 424 H (74-99) mg/dL Calcium 9.6 (8.4-10.2) mg/dL Phosphorus 3.8 (2.5-4.5) mg/dL Magnesium 1.8 (1.6-2.3) mg/dL Total Bilirubin 1.0 (0.2-1.3) mg/dL AST 32 (14-36) U/L ALT 43 (9-52) U/L Alkaline Phosphatase 86 (38-126) U/L Total Creatine Kinase 81 (30-135) U/L CK-MB (CK-2) 1.3 (0.0-2.4) ng/mL CK-MB (CK-2) Rel Index 1.6 Troponin I <0.012 (0.000-0.034) ng/mL Total Protein 6.9 (6.3-8.2) g/dL Albumin 4.0 (3.5-5.0) g/dL Urine Color Light Yellow Urine Appearance Clear (Clear) Urine pH 5.0 (5.0-8.0) Ur Specific [place] 1.028 (1.001-1.035) Urine Protein Negative (Negative) Urine Glucose (UA) 4+ H (Negative) Urine Ketones 2+ H (Negative) Urine Blood Negative (Negative) Urine Nitrite Negative (Negative) Urine Bilirubin Negative (Negative) Urine Urobilinogen <2.0 (<2.0) mg/dL Ur Leukocyte Esterase Negative (Negative) Acetone, Qual Negative (Negative) 08/22/18 Range/Units 11:08 WBC 7.4 (3.8-10.6) k/uL RBC 5.25 (3.80-5.40) m/uL Hgb 16.9 H (11.4-16.0) gm/dL Hct 49.5 H (34.0-46.0) % MCV 94.4 (80.0-100.0) fL MCH 32.2 (25.0-35.0) pg MCHC 34.1 (31.0-37.0) g/dL RDW 12.5 (11.5-15.5) % Plt Count 294 (150-450) k/uL Neutrophils % 58 % Lymphocytes % 33 % Monocytes % 4 % Eosinophils % 2 % Basophils % 1 % Neutrophils # 4.3 (1.3-7.7) k/uL Lymphocytes # 2.4 (1.0-4.8) k/uL Monocytes # 0.3 (0-1.0) k/uL Eosinophils # 0.2 (0-0.7) k/uL Basophils # 0.1 (0-0.2) k/uL Sodium (137-145) mmol/L Potassium (3.5-5.1) mmol/L Chloride (98-107) mmol/L Carbon Dioxide (22-30) mmol/L Anion Gap mmol/L BUN (7-17) mg/dL Creatinine (0.52-1.04) mg/dL Est GFR (CKD-EPI)AfAm (>60 ml/min/1.73 sqM) Est GFR (CKD-EPI)NonAf (>60 ml/min/1.73 sqM) Glucose (74-99) mg/dL Calcium (8.4-10.2) mg/dL Phosphorus (2.5-4.5) mg/dL Magnesium (1.6-2.3) mg/dL Total Bilirubin (0.2-1.3) mg/dL AST (14-36) U/L ALT (9-52) U/L Alkaline Phosphatase (38-126) U/L Total Creatine Kinase (30-135) U/L CK-MB (CK-2) (0.0-2.4) ng/mL CK-MB (CK-2) Rel Index Troponin I (0.000-0.034) ng/mL Total Protein (6.3-8.2) g/dL Albumin (3.5-5.0) g/dL Urine Color Urine Appearance (Clear) Urine pH (5.0-8.0) Ur Specific [place] (1.001-1.035) Urine Protein (Negative) Urine Glucose (UA) (Negative) Urine Ketones (Negative) Urine Blood (Negative) Urine Nitrite (Negative) Urine Bilirubin (Negative) Urine Urobilinogen (<2.0) mg/dL Ur Leukocyte Esterase (Negative) Acetone, Qual (Negative) - EKG Data -: EKG Interpreted by Me (EKG shows normal sinus rhythm rate of 72, PA 144, QRS 84, QTC 440) Disposition Clinical Impression: Hyperglycemia, New onset type 2 diabetes mellitus Disposition: HOME SELF-CARE Condition: Good Instructions: Type 2 Diabetes in Adults: New Diagnosis (ED) Prescriptions: metFORMIN HCL [Glucophage] 500 mg PO BID #60 tab Is patient prescribed a controlled substance at d/c from ED?: No Referrals: Babak Fiore MD [Primary Care Provider] - 1-2 days
[2018-08-22 11:47] LABS: Basophils # (A) 0.1 k/uL (0-0.2); Basophils % (A) 1 %; Eosinophils # (A) 0.2 k/uL (0-0.7); Eosinophils % (A) 2 %; HCT 49.5 % (34.0-46.0); HGB 16.9 gm/dL (11.4-16.0); Lymphocytes # (A) 2.4 k/uL (1.0-4.8); Lymphocytes % (A) 33 %; MCH 32.2 pg (25.0-35.0); MCHC 34.1 g/dL (31.0-37.0); MCV 94.4 fL (80.0-100.0); Monocytes # (A) 0.3 k/uL (0-1.0); Monocytes % (A) 4 %; Neutrophils # (A) 4.3 k/uL (1.3-7.7); Neutrophils % (A) 58 %; Platelet Count 294 k/uL (150-450); RBC 5.25 m/uL (3.80-5.40); RDW 12.5 % (11.5-15.5); WBC 7.4 k/uL (3.8-10.6)
[2018-08-22 11:55] LABS: Appearance,Urine Clear (Clear); Bilirubin,Urine Negative (Negative); Blood,Urine Negative (Negative); Color,Urine Light Yellow; Glucose,Urine (UA) 4+ (Negative); Leukocyte Esterase,Urine Negative (Negative); Nitrite,Urine Negative (Negative); Protein,Urine Negative (Negative); Specific Gravity,Urine 1.028 (1.001-1.035); Urobilinogen,Urine <2.0 mg/dL (<2.0)
[2018-08-22 12:00] LABS: ALT 43 U/L (9-52); AST 32 U/L (14-36); Alkaline Phosphatase 86 U/L (38-126); Anion Gap 12 mmol/L; Blood Urea Nitrogen 20 mg/dL (7-17); Calcium 9.6 mg/dL (8.4-10.2); Carbon Dioxide 24 mmol/L (22-30); Chloride 99 mmol/L (98-107); Glucose 424 mg/dL (74-99); Magnesium 1.8 mg/dL (1.6-2.3); Phosphorus 3.8 mg/dL (2.5-4.5); Potassium 4.4 mmol/L (3.5-5.1); Sodium 135 mmol/L (137-145); Total Protein 6.9 g/dL (6.3-8.2)
[2018-08-22 12:12] LABS: Creatine Kinase 81 U/L (30-135)
[2018-08-22 12:24] LABS: Creatine Kinase MB 1.3 ng/mL (0.0-2.4); Troponin I <0.012 ng/mL (0.000-0.034)
[2018-08-22 12:57] LABS: Ketones,Urine 2+ (Negative)
[2018-08-22] MEDS ORDERED: INSULIN REGULAR 100 UNIT/ML VIAL IV ONE (13:06)
[2018-08-22 13:07] VITALS: BP 123/80; PULSE 64
[2018-08-22 14:08] LABS: Glucose,Whole Blood 253 mg/dL (75-99)
[2018-08-22 14:43] VITALS: RESP 16; TEMP 98.3
== END 2018-08-22 14:40 | disposition home or self-care (01) ==
LOC: EC 10:25
DX: E11.65 Type 2 diabetes mellitus with hyperglycemia (principal); I10 Essential (primary) hypertension; E07.9 Disorder of thyroid, unspecified; Z79.890 Hormone replacement therapy; Z79.899 Other long term (current) drug therapy; Z87.891 Personal history of nicotine dependence
CPT/HCPCS: 36415; 80053; 81003; 82009; 82550; 82553; 83735; 84100; 84484; 85025; 87086; 93005; 96360; 96361; 99285

== ENCOUNTER → 2019-03-14 | Outpatient (CLI) | payer BC ==
[2019-03-14 08:02] VITALS: BP 120/80; PULSE 60; RESP 16; TEMP 98.5; BMI 35.6
--- NOTE | 2019-03-14 09:02 | P.HPOB ---
History of Present Illness H&P Date: 03/14/19 Chief Complaint: The patient is here for her routine gynecologic exam and ma mmogram. This is a 63 year old G 1 P 1 with an LMP of 2006. The patient has been experiencing greater urinary leakage with coughing and sneezing. She states it is to the point where she would like something done and has heard about procedures such as the sling procedure for stress urinary incontinence. She states the leakage is immediate when she does cough or sneeze very hard. She denies urge incontinence symptoms. She is otherwise without gynecologic complaints and denies any postmenopausal bleeding. Review of Systems Her weight has been fairly stable. She is gained about 7 pounds over the last 5 years. She denies respiratory, cardiac, or G.I. problems. Past Medical History Past Medical History: Atrial Fibrillation, Diabetes Mellitus, Hyperlipidemia, Hypertension, Thyroid Disorder Additional Past Medical History / Comment(s): Type II diabetes, hypothyroidism. 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 History of Any Multi-Drug Resistant Organisms: None Reported Past Surgical History: Adenoidectomy, Cholecystectomy, Tonsillectomy Additional Past Surgical History / Comment(s): ESS, colonoscopy 2008. Past Anesthesia/Blood Transfusion Reactions: No Reported Reaction, Motion Sickn ess Past Psychological History: Depression (With mood disorder) Additional Psychological History / Comment(s): She has been on medication for a mood disorder. She is independent. Smoking Status: Former smoker Past Alcohol Use History: Occasional (3 per month) Additional Past Alcohol Use History / Comment(s): Quit smoking in her late 20s. Past Drug Use History: None Reported Additional History: She is . 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 - Past Family History Father Family Medical History: Cancer, Coronary Artery Disease (CAD), Diabetes Mellitus, Liver Disease Additional Family Medical History / Comment(s): Father had liver cancer and at the age of 67yrs. Mother Family Medical History: Cancer Additional Family Medical History / Comment(s): Grave's dx, from lung cancer with mets at the age of 72 yrs. Brother(s) Family Medical History: Cancer, Myocardial Infarction ([place]) Additional Family Medical History / Comment(s): 2 brothers had MIs. One brother had colon cancer. Sister(s) Family Medical History: Cancer Additional Family Medical History / Comment(s): Half-sister had breast cancer. Daughter(s) Additional Family Medical History / Comment(s): Congenital heart defect including pulmonary valve stenosis and ASD. Medications and Allergies Home Medications Medication Instructions Recorded Confirmed Type Levothyroxine Sodium [Synthroid] 50 mcg PO DAILY 05/22/14 03/14/19 History Apixaban [Eliquis] 5 mg PO BID #60 tab 11/25/16 03/14/19 Rx Metoprolol Tartrate [Lopressor] 12.5 mg PO BID #60 tab 11/25/16 03/14/19 Rx Citalopram Hydrobromide [CeleXA] 20 mg PO DAILY 11/17/17 03/14/19 History Hydrochlorothiazide 12.5 mg PO DAILY 08/22/18 03/14/19 History Pravastatin Sodium [Pravachol] 40 mg PO HS 08/22/18 03/14/19 History Biotin 5,000 mcg PO DAILY 03/14/19 03/14/19 History Multivitamin [Multivitamins Adult 1 each PO DAILY 03/14/19 03/14/19 History Gummies] metFORMIN HCL [Glucophage] 500 mg PO DAILY 03/14/19 03/14/19 History Allergies Allergy/AdvReac Type Severity Reaction Status Date / Time No Known Allergies Allergy Verified 03/14/19 08:06 Exam Vital Signs Temp Pulse Resp BP Pulse Ox 03/14/19 07:55 98.5 F 60 16 120/80 94 L Intake and Output 03/13/19 03/14/19 03/14/19 22:59 06:59 14:59 Other: Weight 94.347 kg Height 5'4", weight 208 pounds, BMI 35.7. This is a well-developed well-nourished white female who is alert and oriented times 3 in no acute distress. HEENT: Within normal limits. NECK: Supple without mass or thyromegaly. CHEST AND LUNGS: Clear to auscultation. HEART: Regular rate and rhythm. BREASTS: Are without mass or discharge. AXILLARY EXAM: Negative for adenopathy. There is a right axillary lipoma measuring approximately 4 x 5 cm. This is most noticeable when her arm is extended at the shoulder. This is soft and nontender. BACK: Negative for CVA tenderness. ABDOMEN: Soft, nontender, without palpable masses. PELVIC EXAM: Normal external genitalia with mild atrophy. Cervix and vagina appear normal with mild atrophy. This cervix is slightly stenotic secondary to atrophy. There is no unusual discharge. There is no evidence of prolapse at rest. With cough and Valsalva there is mild urethral mobility. No urinary leakage was demonstrated. The uterus is midposition, nongravid size and nontender. There are no palpable adnexal masses or tenderness. RECTAL EXAM: original exam is negative for mass or tenderness and is negative for occult blood. EXTREMITIES: Nontender. IMPRESSION: 1. 63-year-old menopausal female with normal gynecologic exam. 2. Stress urinary incontinence with mild urethral mobility with cough and Valsalva. 3. History of uterine fibroid measuring 4.9 cm in 2013 which is not palpable today. 4. Right axillary lipoma measuring approximate 4 x 5 cm. PLAN: 1. Pap smear was performed. 2. Self breast awareness was discussed with the patient. 3. Screening mammogram will be done today. 4. The patient will be referred to Dr. Fonseca at [facility] for further evaluation of her stress urinary incontinence. He is a gynecologic urologist. 5. She states she is due for a colonoscopy. Her general surgeon has retired a nd she will try to have her primary care physician arrange for a colonoscopy with another general surgeon. I have recommended that she speak with the general surgeon about the right axillary lipoma for evaluation and options. 6. I recommended that she do [place] exercises on a regular basis to see if this helps with her stress urinary incontinence. 7.Osteoporosis prevention was discussed. I have stressed the importance of adequate calcium, vitamin D and regular exercise. Recommended amounts of calcium and vitamin D were also discussed. Bone density testing will be done today. 8. She was advised to return in one year for her annual well woman exam.
--- NOTE | 2019-03-14 10:20 | BD ---
EXAMINATION TYPE: Axial Bone Density DATE OF EXAM: 03/14/2019 COMPARISON: NONE CLINICAL HISTORY: Z 78.0 Height: 5 FT 4 IN Weight: 208 FRAX RISK QUESTIONS: History of Fracture in Adulthood: YES Secondary Osteoporosis: RISK FACTORS HISTORY OF: Family History of Osteoporosis: YES Postmenopausal woman: AGE 52 MEDICATIONS: Thyroid Medications: YES Which medication: SYNTHROID How Lon YEARS Additional Medications: SYNTHROID, CITALOPRAM, ELIQUIS, HYDROCHLOROTHIAZIDE, METFORMIN, METOPROLOL, P REVASTATIN Additional History: EXAM MEASUREMENTS: Bone mineral densitometry was performed using the [employer] System. Bone mineral density as measured about the Lumbar spine is: ----- L1-L4(G/cm2): 1.200 T Score Values are as follows: ----- L2: -0.7 ----- L3: 1.3 ----- L4: -0.1 ----- L1-L4: 0.2 BASELINE Bone mineral density about the R hip (g/cm2): 0.876 Bone mineral density about the L hip (g/cm2): 0.942 T Score values are as follows: -----R Neck: -1.2 -----L Neck: -0.7 -----R Total: -0.3 -----L Total: -0.1 BASELINE IMPRESSION: Osteopenia (T Score between -2.5 and -1). There is slightly increased risk of fracture and the patient may be considered for treatment. Re-Screen 2-5 years. NOTE: T-SCORE=SD OF THE YOUNG ADULT MEAN.
--- NOTE | 2019-03-15 14:01 | MM ---
Reason for exam: screening (asymptomatic). Last mammogram was performed 1 year and 6 months ago. History: Patient is postmenopausal. Family history of breast cancer in sister at age 50. Physical Findings: A clinical breast exam by your physician is recommended on an annual basis and results should be correlated with mammographic findings. MG 3D Screening Mammo W/Cad Bilateral CC and MLO view(s) were taken. Prior study comparison: September 16, 2017, bilateral MG screening mammo w CAD. November 19, 2014, right breast MG diagnostic mammo RT w CAD. There are scattered fibroglandular densities. Benign appearing calcifications in the right breast. No suspicious abnormality. No significant changes when compared with prior studies. ASSESSMENT: Benign, BI-RAD 2 RECOMMENDATION: Routine screening mammogram of both breasts in 1 year.
== END ==
LOC: WWCWWP 07:18
PROVIDERS: ATTEND Obstetrics & Gynecology
DX: Z12.31 Encounter for screening mammogram for malignant neoplasm of breast (principal); M85.852 Other specified disorders of bone density and structure, left thigh; M85.851 Other specified disorders of bone density and structure, right thigh; Z78.0 Asymptomatic menopausal state; E03.9 Hypothyroidism, unspecified; Z82.62 Family history of osteoporosis
CPT/HCPCS: 77063; 77067; 77080

== ENCOUNTER 2019-05-07 00:46 | Emergency (ER) | payer BC ==
[2019-05-07 01:00] VITALS: RESP 16; TEMP 98.4
--- NOTE | 2019-05-07 01:32 | ED ---
Female Urogenital HPI - General Chief complaint: Urogenital Stated complaint: Blood in Urine Source: patient Mode of arrival: ambulatory Limitations: no limitations - History of Present Illness Initial comments: Juliet is a 64-year-old female who presents to the ER for evaluation of dysuria hematuria and urinary frequency throughout the day today. Patient expresses concern she may have a urinary tract infection. She denies any concern for sexually transmitted infections. She has no history of recurrent urinary tract infections. She denies any fevers chills nausea vomiting or flank pain. - Related Data Home Medications Medication Instructions Recorded Confirmed Levothyroxine Sodium [Synthroid] 50 mcg PO DAILY 05/22/14 03/14/19 Citalopram Hydrobromide [CeleXA] 20 mg PO DAILY 11/17/17 03/14/19 Hydrochlorothiazide 12.5 mg PO DAILY 08/22/18 03/14/19 Pravastatin Sodium [Pravachol] 40 mg PO HS 08/22/18 03/14/19 Biotin 5,000 mcg PO DAILY 03/14/19 03/14/19 Multivitamin [Multivitamins Adult 1 each PO DAILY 03/14/19 03/14/19 Gummies] metFORMIN HCL [Glucophage] 500 mg PO DAILY 03/14/19 03/14/19 Previous Rx's Medication Instructions Recorded Apixaban [Eliquis] 5 mg PO BID #60 tab 11/25/16 Metoprolol Tartrate [Lopressor] 12.5 mg PO BID #60 tab 11/25/16 Cephalexin [Keflex] 500 mg PO Q8HR #21 cap 05/07/19 Phenazopyridine HCl [Pyridium] 100 mg PO TID #9 tab 05/07/19 Allergies Allergy/AdvReac Type Severity Reaction Status Date / Time No Known Allergies Allergy Verified 05/07/19 01:00 Review of Systems ROS Statement: Those systems with pertinent positive or pertinent negative responses have been documented in the HPI. ROS Other: All systems not noted in ROS Statement are negative. Past Medical History Past Medical History: Atrial Fibrillation, Diabetes Mellitus, Hyperlipidemia, Hypertension, Thyroid Disorder Additional Past Medical History / Comment(s): Type II diabetes, hypothyroidism. 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 History of Any Multi-Drug Resistant Organisms: None Reported Past Surgical History: Adenoidectomy, Cholecystectomy, Tonsillectomy Additional Past Surgical History / Comment(s): ESS, colonoscopy 2008. Past Anesthesia/Blood Transfusion Reactions: No Reported Reaction, Motion Sickness Smoking Status: Former smoker Past Alcohol Use History: Occasional Past Drug Use History: None Reported - Past Family History Father Family Medical History: Cancer, Coronary Artery Disease (CAD), Diabetes Mellitus, Liver Disease Additional Family Medical History / Comment(s): Father had liver cancer and at the age of 67yrs. Mother Family Medical History: Cancer Additional Family Medical History / Comment(s): Grave's dx, from lung cancer with mets at the age of 72 yrs. Brother(s) Family Medical History: Cancer, Myocardial Infarction ([place]) Additional Family Medical History / Comment(s): 2 brothers had MIs. One brother had colon cancer. Sister(s) Family Medical History: Cancer Additional Family Medical History / Comment(s): Half-sister had breast cancer. Daughter(s) Additional Family Medical History / Comment(s): Congenital heart defect including pulmonary valve stenosis and ASD. General Exam - General Exam Comments Initial Comments: Physical Exam GENERAL: Patient is well-developed and well-nourished. Patient is nontoxic and well- hydrated and is in no distress. HENT: Normocephalic, Atraumatic. EYES: PERRL, EOMI PULMONARY: Unlabored respirations. No audible rales rhonchi or wheezing was noted. CARDIOVASCULAR: There is a regular rate and rhythm without any murmurs gallops or rubs. ABDOMEN: Soft and nontender with normal bowel sounds. SKIN: Skin is clear with no lesions or rashes and otherwise unremarkable. : Deferred NEUROLOGIC: Patient is alert and oriented x3. Moving all extremities spontaneously MUSCULOSKELETAL: Normal extremities with adequate strength and full range of motion. No lower extremity swelling or edema. No calf tenderness. PSYCHIATRIC: Normal psychiatric evaluation. Limitations: no limitations Course Vital Signs 05/07/19 00:56 Temperature 98.4 F Pulse Rate 72 Respiratory 16 Rate Blood Pressure 138/81 O2 Sat by Pulse 95 Oximetry Medical Decision Making - Medical Decision Making The patient was seen and evaluated history is obtained from patient history and physical exam concerning for lower urinary tract symptoms urinalysis was obtained and is positive for evidence of urinary tract infection. Culture was obtained. First dose of Pyridium and Keflex were given in the emergency department. Patient was prescribed antibiotic Keflex as well as Pyridium for symptomatic management. All cushions pertaining care were answered return parameters were discussed patient was discharged home in stable condition. - Lab Data Lab Results 05/07/19 Range/Units 01:03 Urine Color Red Urine Appearance Turbid H (Clear) Urine pH 6.0 (5.0-8.0) Ur Specific [place] 1.018 (1.001-1.035) Urine Protein 2+ H (Negative) Urine Glucose (UA) Negative (Negative) Urine Ketones Negative (Negative) Urine Blood Large H (Negative) Urine Nitrite Negative (Negative) Urine Bilirubin Negative (Negative) Urine Urobilinogen <2.0 (<2.0) mg/dL Ur Leukocyte Esterase Large H (Negative) Urine RBC >182 H (0-5) /hpf Urine WBC >182 H (0-5) /hpf Disposition Clinical Impression: Urinary tract infection Disposition: HOME SELF-CARE Condition: Stable Instructions (If sedation given, give patient instructions): Urinary Tract Infection in Women (ED) Prescriptions: Cephalexin [Keflex] 500 mg PO Q8HR #21 cap Phenazopyridine HCl [Pyridium] 100 mg PO TID #9 tab Is patient prescribed a controlled substance at d/c from ED?: No Referrals: Babak Fiore MD [Primary Care Provider] - 1-2 days
[2019-05-07 01:40] LABS: Appearance,Urine Turbid (Clear); Bilirubin,Urine Negative (Negative); Blood,Urine Large (Negative); Color,Urine Red; Glucose,Urine (UA) Negative (Negative); Ketones,Urine Negative (Negative); Leukocyte Esterase,Urine Large (Negative); Nitrite,Urine Negative (Negative); Protein,Urine 2+ (Negative); RBC,Urine >182 /hpf (0-5); Specific Gravity,Urine 1.018 (1.001-1.035); Urobilinogen,Urine <2.0 mg/dL (<2.0)
[2019-05-07] MEDS ORDERED: CEPHALEXIN 500MG STARTER PACK 4 CAP BTL PO STA (01:59)
[2019-05-07] MEDS ORDERED: PHENAZOPYRIDINE 200 MG TAB PO STA (01:59)
[2019-05-07 03:00] VITALS: BP 124/88; PULSE 68
== END 2019-05-07 02:59 | disposition home or self-care (01) ==
LOC: EC 00:46
DX: N39.0 Urinary tract infection, site not specified (principal); E11.9 Type 2 diabetes mellitus without complications; E78.5 Hyperlipidemia, unspecified; E03.9 Hypothyroidism, unspecified; I10 Essential (primary) hypertension; Z79.84 Long term (current) use of oral hypoglycemic drugs; Z79.890 Hormone replacement therapy; Z79.899 Other long term (current) drug therapy; Z87.891 Personal history of nicotine dependence
CPT/HCPCS: 81001; 87077; 87086; 87186; 99283

== ENCOUNTER → 2019-05-26 | Outpatient (CLI) | payer BC ==
[2019-05-26 16:45] LABS: African American GFR (CKD) 91.6 (60.0-200.0); Albumin 4.1 g/dL (3.80-4.90); Albumin/Globulin Ratio 1.95 (1.60-3.17); Anion Gap 6.7 mmol/L (4.00-12.00); Calcium 9.1 mg/dL (8.7-10.3); Carbon Dioxide 29.3 mmol/L (21.6-31.8); Globulin 2.1 g/dL (1.6-3.3); Potassium 4.1 mmol/L (3.5-5.5); Total Bilirubin 0.9 mg/dL (0.2-1.2); Total Protein 6.2 g/dL (6.2-8.2)
[2019-05-26 16:46] LABS: Chol/HDL Ratio 3.13; LDL Cholesterol,Calculated 54.8 mg/dL (0.0-131.0); VLDL Calculation 28.2 mg/dL (5.00-40.00)
[2019-05-26 18:10] LABS: Hemoglobin A1C 6.1 % (4.0-6.0)
== END | disposition home or self-care (01) ==
LOC: LABWHC1 08:11
PROVIDERS: ATTEND Family Medicine
DX: E11.65 Type 2 diabetes mellitus with hyperglycemia (principal)
CPT/HCPCS: 36415; 80053; 80061; 83036

== ENCOUNTER 2019-09-11 05:47 | Emergency (ER) | payer BC ==
[2019-09-11 05:55] VITALS: TEMP 98
[2019-09-11] MEDS ORDERED: ORPHENADRINE 30 MG/ML 2 ML VIAL IM STA (06:12)
[2019-09-11] MEDS ORDERED: KETOROLAC 30 MG/ML 1 ML VIAL IM STA (06:12)
--- NOTE | 2019-09-11 06:20 | ED ---
Back Pain [facility] - General Chief Complaint: Back Pain/Injury Stated Complaint: Back Pain Time Seen by Provider: 09/11/19 05:59 Source: patient Limitations: no limitations - History of Present Illness Initial Comments: Juliet is a pleasant 64-year-old female who presents the ER today for evaluation of bilateral low back pain. Patient reports over the weekend she had a girls trip, she reports that they had a lot of fun and did a lot of dancing and she also slept in a bed that is not hers. Since that time she's been having bilateral lower back pain which seems like a muscle spasm. Pain does not radiate to the legs, pain is not associated with any weakness, numbness, tingling in the legs is not associated with any bowel or bladder retention or incontinence. She's been taking some Motrin with minimal improvement in the pain. She does have a history of intermittent low back pain in the past but no surgeries or anything. - Related Data Home Medications Medication Instructions Recorded Confirmed Levothyroxine Sodium [Synthroid] 50 mcg PO DAILY 05/22/14 03/14/19 Citalopram Hydrobromide [CeleXA] 20 mg PO DAILY 11/17/17 03/14/19 Hydrochlorothiazide 12.5 mg PO DAILY 08/22/18 03/14/19 Pravastatin Sodium [Pravachol] 40 mg PO HS 08/22/18 03/14/19 Biotin 5,000 mcg PO DAILY 03/14/19 03/14/19 Multivitamin [Multivitamins Adult 1 each PO DAILY 03/14/19 03/14/19 Gummies] metFORMIN HCL [Glucophage] 500 mg PO DAILY 03/14/19 03/14/19 Previous Rx's Medication Instructions Recorded Apixaban [Eliquis] 5 mg PO BID #60 tab 11/25/16 Metoprolol Tartrate [Lopressor] 12.5 mg PO BID #60 tab 11/25/16 Cephalexin [Keflex] 500 mg PO Q8HR #21 cap 05/07/19 Phenazopyridine HCl [Pyridium] 100 mg PO TID #9 tab 05/07/19 Diclofenac Sodium Gel [Voltaren 4 gm TOPICAL QID 30 Days #1 tub 09/11/19 Gel] Lidocaine 5% Patch [Lidoderm] 1 patch TOPICAL DAILY #30 patch 09/11/19 Orphenadrine [Norflex] 100 mg PO Q12H #12 tablet.er 09/11/19 predniSONE [Deltasone] 40 mg PO DAILY 5 Days #10 tab 09/11/19 Allergies Allergy/AdvReac Type Severity Reaction Status Date / Time No Known Allergies Allergy Verified 09/11/19 05:56 Review of Systems ROS Statement: Those systems with pertinent positive or pertinent negative responses have been documented in the HPI. ROS Other: All systems not noted in ROS Statement are negative. Past Medical History Past Medical History: Atrial Fibrillation, Diabetes Mellitus, Hyperlipidemia, Hypertension, Thyroid Disorder Additional Past Medical History / Comment(s): Type II diabetes, hypothyroidism. 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 History of Any Multi-Drug Resistant Organisms: None Reported Past Surgical History: Adenoidectomy, Cholecystectomy, Tonsillectomy Additional Past Surgical History / Comment(s): ESS, colonoscopy 2008. Past Anesthesia/Blood Transfusion Reactions: No Reported Reaction, Motion Sickness Past Psychological History: Depression Smoking Status: Former smoker Past Alcohol Use History: Occasional Past Drug Use History: None Reported - Past Family History Father Family Medical History: Cancer, Coronary Artery Disease (CAD), Diabetes Mellitus, Liver Disease Additional Family Medical History / Comment(s): Father had liver cancer and at the age of 67yrs. Mother Family Medical History: Cancer Additional Family Medical History / Comment(s): Jonathan's dx, from lung cancer with mets at the age of 72 yrs. Brother(s) Family Medical History: Cancer, Myocardial Infarction ([place]) Additional Family Medical History / Comment(s): 2 brothers had MIs. One brother had colon cancer. Sister(s) Family Medical History: Cancer Additional Family Medical History / Comment(s): Half-sister had breast cancer. Daughter(s) Additional Family Medical History / Comment(s): Congenital heart defect including pulmonary valve stenosis and ASD. General Exam - General Exam Comments Initial Comments: Physical Exam GENERAL: Patient is well-developed and well-nourished. Patient is nontoxic and well-hydrated and is in no distress. HENT: Normocephalic, Atraumatic. EYES: PERRL, EOMI PULMONARY: Unlabored respirations. CARDIOVASCULAR: RRR Warm and well perfused extremities ABDOMEN: Non-distended SKIN: No rashes or bruising : Deferred NEUROLOGIC: Alert and oriented Normal speech Normal gait MUSCULOSKELETAL: Moving all extremities with no apparent injury Paraspinal muscle hypertonicity in the lumbar spine, no midline spinal tenderness PSYCHIATRIC: No SI/HI Limitations: no limitations Course Vital Signs 09/11/19 05:51 Temperature 98 F Pulse Rate 70 Respiratory 20 Rate Blood Pressure 151/95 O2 Sat by Pulse 97 Oximetry Medical Decision Making - Medical Decision Making She was seen and evaluated history is obtained from the patient Physical exam are consistent with musculoskeletal back pain, patient will be treated symptomatically there are no red flag symptoms. This time patient's [facility] plan for symptomatically treatment and discharge home. Disposition Clinical Impression: Mechanical back pain Disposition: HOME SELF-CARE Condition: Stable Additional Instructions: HOME CARE INSTRUCTIONS: For many people, back pain returns. Since low back pain is rarely dangerous, it is often a condition that people can learn to manage on their own. Please remain active. It is stressful on the back to sit or license examiner one place. Do not sit, drive, or license examiner one place for more than 30 minutes at a time. Take short walks on level surfaces as soon as pain allows. Try to increase the length of time you walk each day. Do not stay in bed. Resting more than 1 or 2 days can delay your recovery. Do not avoid exercise or work. Your body is made to move. It is not dangerous to be active, even though your back may hurt. Your back will likely heal faster if you return to being active before your pain is gone. Only take [id number] or prescription medicines as directed by your caregiver. [id number] medicines to reduce pain and inflammation are often the most helpful. Your caregiver may prescribe muscle relaxant drugs. These medicines help dull your pain so you can more quickly return to your normal activities and healthy exercise. Please avoid driving, operating heavy machinery or making important decisions while on this drug - it can cloud your judgment. Avoid feeling anxious or stressed. Stress increases muscle tension and can worsen back pain. It is important to recognize when you are anxious or stressed and learn ways to manage it. Exercise is a great option. SEEK MEDICAL CARE IF: You have pain that is not relieved with rest or medicine. You have pain that does not improve in 1 week. You have new symptoms. You are generally not feeling well. SEEK IMMEDIATE MEDICAL CARE IF: You have pain that radiates from your back into your legs. You develop new bowel or bladder control problems. You have unusual weakness or numbness in your arms or legs. You develop nausea or vomiting. You develop abdominal pain. You feel faint. Prescriptions: predniSONE [Deltasone] 40 mg PO DAILY 5 Days #10 tab Lidocaine 5% Patch [Lidoderm] 1 patch TOPICAL DAILY #30 patch Orphenadrine [Norflex] 100 mg PO Q12H #12 tablet.er Diclofenac Sodium Gel [Voltaren Gel] 4 gm TOPICAL QID 30 Days #1 tub Is patient prescribed a controlled substance at d/c from ED?: No Referrals: Babak Fiore MD [Primary Care Provider] - 1-2 days
[2019-09-11 06:50] VITALS: BP 141/85; PULSE 62; RESP 16
== END 2019-09-11 07:00 | disposition home or self-care (01) ==
LOC: EC 05:47
DX: M54.5 Low back pain (principal); I48.91 Unspecified atrial fibrillation; E11.9 Type 2 diabetes mellitus without complications; E78.5 Hyperlipidemia, unspecified; I10 Essential (primary) hypertension; E03.9 Hypothyroidism, unspecified; F32.9 Major depressive disorder, single episode, unspecified; Z87.891 Personal history of nicotine dependence; Z79.890 Hormone replacement therapy; Z79.84 Long term (current) use of oral hypoglycemic drugs; Z79.899 Other long term (current) drug therapy
CPT/HCPCS: 99283; 96372 ×2; J2360; J1885

== ENCOUNTER 2019-09-18 07:14 | Emergency (ER) | payer BC ==
[2019-09-18 07:23] VITALS: BP 135/87; PULSE 64; RESP 18; TEMP 97.8
[2019-09-18] MEDS ORDERED: KETOROLAC 60 MG/2 ML VIAL IM STA (07:48)
--- NOTE | 2019-09-18 08:01 | ED ---
General Adult HPI - General Chief complaint: Extremity Problem,Nontraumatic Stated complaint: knee pain Time Seen by Provider: 09/18/19 07:20 Source: patient, RN notes reviewed, old records reviewed Mode of arrival: wheelchair Limitations: no limitations - History of Present Illness Initial comments: This is a 64-year-old female presents emergency Department with chronic left knee pain. Patient states on Tuesday she got a cortisone shot and since then her knee has been hurting a little worse than it has been. Patient states she came to the emergency department today thinking she might really get an MRI. Patient states she's had no further injury since she saw Dr. Gomez. Patient states she was told him to physical therapy but she has not started that and in fact went to [place] and walked around a lot which seems to exacerbate her pain. Patient denies any swelling. Patient denies any limited range of motion. Patient denies any fever chills. Patient denies any other complaint at this time. - Related Data Home Medications Medication Instructions Recorded Confirmed Levothyroxine Sodium [Synthroid] 50 mcg PO DAILY 05/22/14 03/14/19 Citalopram Hydrobromide [CeleXA] 20 mg PO DAILY 11/17/17 03/14/19 Hydrochlorothiazide 12.5 mg PO DAILY 08/22/18 03/14/19 Pravastatin Sodium [Pravachol] 40 mg PO HS 08/22/18 03/14/19 Biotin 5,000 mcg PO DAILY 03/14/19 03/14/19 Multivitamin [Multivitamins Adult 1 each PO DAILY 03/14/19 03/14/19 Gummies] metFORMIN HCL [Glucophage] 500 mg PO DAILY 03/14/19 03/14/19 Previous Rx's Medication Instructions Recorded Apixaban [Eliquis] 5 mg PO BID #60 tab 11/25/16 Metoprolol Tartrate [Lopressor] 12.5 mg PO BID #60 tab 11/25/16 Cephalexin [Keflex] 500 mg PO Q8HR #21 cap 05/07/19 Phenazopyridine HCl [Pyridium] 100 mg PO TID #9 tab 05/07/19 Diclofenac Sodium Gel [Voltaren 4 gm TOPICAL QID 30 Days #1 tub 09/11/19 Gel] Lidocaine 5% Patch [Lidoderm] 1 patch TOPICAL DAILY #30 patch 09/11/19 Orphenadrine [Norflex] 100 mg PO Q12H #12 tablet.er 09/11/19 predniSONE [Deltasone] 40 mg PO DAILY 5 Days #10 tab 09/11/19 Allergies Allergy/AdvReac Type Severity Reaction Status Date / Time No Known Allergies Allergy Verified 09/18/19 07:22 Review of Systems ROS Statement: Those systems with pertinent positive or pertinent negative responses have been documented in the HPI. ROS Other: All systems not noted in ROS Statement are negative. Past Medical History Past Medical History: Atrial Fibrillation, Diabetes Mellitus, Hyperlipidemia, Hypertension, Thyroid Disorder Additional Past Medical History / Comment(s): Type II diabetes, hypothyroidism. 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 History of Any Multi-Drug Resistant Organisms: None Reported Past Surgical History: Adenoidectomy, Cholecystectomy, Tonsillectomy Additional Past Surgical History / Comment(s): ESS, colonoscopy 2008. Past Anesthesia/Blood Transfusion Reactions: No Reported Reaction, Motion Sickness Past Psychological History: Depression Smoking Status: Former smoker Past Alcohol Use History: Occasional Past Drug Use History: None Reported - Past Family History Father Family Medical History: Cancer, Coronary Artery Disease (CAD), Diabetes Mellitus, Liver Disease Additional Family Medical History / Comment(s): Father had liver cancer and at the age of 67yrs. Mother Family Medical History: Cancer Additional Family Medical History / Comment(s): Grave's dx, from lung cancer with mets at the age of 72 yrs. Brother(s) Family Medical History: Cancer, Myocardial Infarction ([place]) Additional Family Medical History / Comment(s): 2 brothers had MIs. One brother had colon cancer. Sister(s) Family Medical History: Cancer Additional Family Medical History / Comment(s): Half-sister had breast cancer. Daughter(s) Additional Family Medical History / Comment(s): Congenital heart defect including pulmonary valve stenosis and ASD. General Exam - General Exam Comments Initial Comments: GENERAL Patient is well-developed and well-nourished. Patient is in mild distress. EYES Patient's pupils are equal and round. Extraocular motion is intact SKIN Unremarkable NEURO The patient is alert and oriented 3 PYSCH Patient has normal interpersonal interactions. MUSCULOSKELETAL There is no ligament laxity of the left knee there is no swelling and there is full range of motion. Limitations: no limitations Course Vital Signs 09/18/19 07:19 Temperature 97.8 F Pulse Rate 64 Respiratory 18 Rate Blood Pressure 135/87 O2 Sat by Pulse 98 Oximetry Disposition Clinical Impression: Chronic pain of left knee Disposition: HOME SELF-CARE Condition: Good Instructions (If sedation given, give patient instructions): Knee Pain (ED) Additional Instructions: Patient should continue taking Motrin. Patient should continue using the knee brace. Patient should follow-up with Dr. Gomez. Patient should participate in physical therapy. Is patient prescribed a controlled substance at d/c from ED?: No Referrals: Babak Fiore MD [Primary Care Provider] - 1-2 days Time of Disposition: 08:00
== END 2019-09-18 08:20 | disposition home or self-care (01) ==
LOC: EC 07:14
DX: G89.29 Other chronic pain (principal); M25.562 Pain in left knee; E11.9 Type 2 diabetes mellitus without complications; E78.5 Hyperlipidemia, unspecified; I10 Essential (primary) hypertension; E03.9 Hypothyroidism, unspecified; F32.9 Major depressive disorder, single episode, unspecified; Z87.891 Personal history of nicotine dependence; Z79.84 Long term (current) use of oral hypoglycemic drugs; Z79.890 Hormone replacement therapy; Z79.899 Other long term (current) drug therapy
CPT/HCPCS: 99283; 96372; L1830; J1885

== ENCOUNTER → 2020-06-18 | Outpatient (CLI) | payer BC ==
--- NOTE | 2020-06-18 10:27 | MM ---
Reason for exam: additional evaluation requested from prior study. Last mammogram was performed 1 year and 3 months ago. History: Patient is postmenopausal. Family history of breast cancer in sister at age 50. Took hormonal contraceptives for 1 year. Physical Findings: Nurse Summary: nodule in the ight breast at 2 o'clock (nurse ms). MG 3D Diag Mammo W/Cad MELY Bilateral CC and MLO view(s) were taken. Prior study comparison: March 14, 2019, bilateral MG 3d screening mammo w/cad. September 16, 2017, bilateral MG screening mammo w CAD. There are scattered fibroglandular densities. Benign appearing bilateral calcifications. These results were verbally communicated with the patient and result sheet given to the patient on 06/18/20. ASSESSMENT: Benign, BI-RAD 2 RECOMMENDATION: Routine screening mammogram of both breasts in 1 year.
--- NOTE | 2020-06-18 10:28 | USB ---
Reason for exam: clinical finding. History: Patient is postmenopausal. Family history of breast cancer in sister at age 50. Took hormonal contraceptives for 1 year. Indicated problem(s): pain in the right breast. US Breast Limited RT Right limited breast ultrasound including focal area of concern, retroareolar and axilla demonstrates no cystic or solid lesion seen. These results were verbally communicated with the patient and result sheet given to the patient on 06/18/20. ASSESSMENT: Benign, BI-RAD 2 RECOMMENDATION: Clinical management of the right breast. Manage patient on a clinical basis.
== END | disposition home or self-care (01) ==
LOC: RADMAMWWP 08:49
PROVIDERS: ATTEND Family Medicine
DX: N63.10 Unspecified lump in the right breast, unspecified quadrant (principal)
CPT/HCPCS: 77062; 77066

== ENCOUNTER 2020-07-07 08:23 | Emergency (ER) | payer BC ==
[2020-07-07 08:31] VITALS: RESP 18
--- NOTE | 2020-07-07 09:03 | XR ---
EXAMINATION TYPE: XR ankle complete RT DATE OF EXAM: 07/07/2020 COMPARISON: None HISTORY: Swollen medial malleolus TECHNIQUE: Three-view right ankle FINDINGS: There is prominent soft tissue swelling over the medial malleolus. Small ossification may b e adjacent. Occult fracture could be considered. There is prominent soft tissue swelling over the lat eral malleolus as well. The ankle mortise appears intact. Plantar calcaneal heel spur is present. IMPRESSION: 1. There may be an occult fracture from the medial malleolus on the oblique view. Prominent soft tis mora swelling is present. Clinical correlation recommended.
[2020-07-07 09:17] LABS: Appearance,Urine Cloudy (Clear); Bacteria,Urine Occasional /hpf; Bilirubin,Urine Negative (Negative); Blood,Urine Large (Negative); Color,Urine Light Red; Glucose,Urine (UA) Negative (Negative); Ketones,Urine Negative (Negative); Leukocyte Esterase,Urine Large (Negative); Mucus,Urine Rare /hpf; Nitrite,Urine Negative (Negative); Protein,Urine Trace (Negative); RBC,Urine >182 /hpf (0-5); Specific Gravity,Urine 1.019 (1.001-1.035); Squamous Epithelial Cell,Urine 2 /hpf (0-4); Urobilinogen,Urine <2.0 mg/dL (<2.0); WBC,Urine 78 /hpf (0-5)
--- NOTE | 2020-07-07 09:23 | US ---
EXAMINATION TYPE: US venous doppler duplex LE RT DATE OF EXAM: 07/07/2020 9:13 AM COMPARISON: NONE CLINICAL HISTORY: swelling of lower ankle. Right ankle swelling SIDE PERFORMED: Right TECHNIQUE: The lower extremity deep venous system is examined utilizing real time linear array sonog milagro with graded compression, doppler sonography and color-flow sonography. VESSELS IMAGED: Common Femoral Vein Deep Femoral Vein Greater Saphenous Vein * Femoral Vein Popliteal Vein Small Saphenous Vein * Proximal Calf Veins (* superficial vessels) Right Leg: Negative for DVT IMPRESSION: 1. Right lower extremity ultrasound negative for deep venous thrombosis.
[2020-07-07] MEDS ORDERED: CEPHALEXIN 500MG STARTER PACK 4 CAP BTL PO STA (09:34)
--- NOTE | 2020-07-07 09:36 | ED ---
General Adult HPI - General Chief complaint: Urogenital Stated complaint: swelling ankles/Urinary issues Time Seen by Provider: 07/07/20 08:33 Source: patient Mode of arrival: ambulatory Limitations: no limitations - History of Present Illness Initial comments: 65yo female with history of a-fib on eliquis presenting today for multiple complaints. pt has noted swleling pain to the right lateral aspect of ankle x 3 days. states she does not remember injuries or falls. Patient denies calf pain, swelling. Patient states at times she has pain up her reagan. Denies history of DVT/PE cancer, denies chest pain shortness of breath or dyspnea with lying flat or exertion, denies swelling of foot or left leg, localized one area per pateitn. Patient also endorses pain with urination and pink on toilet paper x 1 day. No back pain, no fevers. No additional complaints Patient appears well nontoxic on arrival. Pt states she did hurt her right ankle in 2007 while drinking. - Related Data Home Medications Medication Instructions Recorded Confirmed Levothyroxine Sodium [Synthroid] 50 mcg PO DAILY 05/22/14 07/07/20 Citalopram Hydrobromide [CeleXA] 20 mg PO DAILY 11/17/17 07/07/20 Hydrochlorothiazide 12.5 mg PO DAILY 08/22/18 07/07/20 [hydroCHLOROthiazide] Pravastatin Sodium [Pravachol] 40 mg PO HS 08/22/18 07/07/20 metFORMIN HCL [Glucophage] 1,000 mg PO DAILY 03/14/19 07/07/20 Metoprolol Tartrate [Lopressor] 12.5 mg PO DAILY 07/07/20 07/07/20 lisinopriL [Zestril] 5 mg PO DAILY 07/07/20 07/07/20 Previous Rx's Medication Instructions Recorded Apixaban [Eliquis] 5 mg PO BID #60 tab 11/25/16 Cephalexin [Keflex] 500 mg PO Q6HR 7 Days #28 cap 07/07/20 Allergies Allergy/AdvReac Type Severity Reaction Status Date / Time No Known Allergies Allergy Verified 07/07/20 09:58 Review of Systems ROS Statement: Those systems with pertinent positive or pertinent negative responses have been documented in the HPI. ROS Other: All systems not noted in ROS Statement are negative. Past Medical History Past Medical History: Atrial Fibrillation, Diabetes Mellitus, Hyperlipidemia, Hypertension, Thyroid Disorder Additional Past Medical History / Comment(s): Type II diabetes, hypothyroidism. History of Any Multi-Drug Resistant Organisms: None Reported Past Surgical History: Adenoidectomy, Cholecystectomy, Tonsillectomy Additional Past Surgical History / Comment(s): ESS, colonoscopy 2008. Past Anesthesia/Blood Transfusion Reactions: No Reported Reaction, Motion Sickness Past Psychological History: Depression Smoking Status: Never smoker Past Alcohol Use History: Occasional Past Drug Use History: None Reported - Past Family History Father Family Medical History: Cancer, Coronary Artery Disease (CAD), Diabetes Mellitus, Liver Disease Additional Family Medical History / Comment(s): Father had liver cancer and at the age of 67yrs. Mother Family Medical History: Cancer Additional Family Medical History / Comment(s): Grave's dx, from lung cancer with mets at the age of 72 yrs. Brother(s) Family Medical History: Cancer, Myocardial Infarction ([place]) Additional Family Medical History / Comment(s): 2 brothers had MIs. One brother had colon cancer. Sister(s) Family Medical History: Cancer Additional Family Medical History / Comment(s): Half-sister had breast cancer. Daughter(s) Additional Family Medical History / Comment(s): Congenital heart defect including pulmonary valve stenosis and ASD. General Exam - General Exam Comments Initial Comments: General: The patient is awake and alert, in no distress. Eye: Pupils are equal, round and reactive to light, extra-ocular movements are intact. No nystagmus. There is normal conjunctiva bilaterally. No signs of icterus. Cardiovascular: There is a regular rate and rhythm. No murmur, rub or gallop is appreciated. Respiratory: Lungs are clear to auscultation, respirations are non-labored, breath sounds are equal. No wheezes, stridor, rales, or rhonchi. Gastrointestinal: Soft, non-distended, non-tender abdomen without masses or organomegaly noted. There is no rebound or guarding present. Musculoskeletal: Localized non erythematous swelling that is tender to touch over the lateral malleolus of the right ankle.No calf pain or swelling. Pain al mercedes anterior reagan of right leg.No edema. normal left leg Normal ROM, with some tenderness of right ankle joint. Strength 5/5. Sensation intact of the LE b/l. Radial pulses equal bilaterally 2+. Neurological: A&O x 3. CN II-XII intact grossly, There are no obvious motor or sensory deficits. Coordination appears grossly intact. Speech is normal. Skin: Skin is warm and dry and no rashes or lesions are noted. Psychiatric: Cooperative, appropriate mood & affect, normal judgment. Limitations: no limitations Course Vital Signs 07/07/20 07/07/20 08:28 10:02 Temperature 98.5 F 98.3 F Pulse Rate 59 L 52 L Respiratory 18 18 Rate Blood Pressure 133/80 114/75 O2 Sat by Pulse 97 100 Oximetry Medical Decision Making - Medical Decision Making 65yo female presenting for right ankle swelling. Very localized area of swelling and is tender over the medial malleolus and no noted injury or remembered injury. XR no obvious fracture possible occult. Patient states she feels like that is old from previous injury. Patient placed in a stirrup and is to f/u with orthopedics. Patient has no clinical signs or described symptoms concernign for heart failure. Pt UA concerning for infection will treat. patient is agreeable to care plan and discharge. is to f/u with pcp for UTI,return for back pain or fevers. - Lab Data Lab Results 07/07/20 Range/Units 08:55 Urine Color Light Red Urine Appearance Cloudy H (Clear) Urine pH 6.0 (5.0-8.0) Ur Specific [place] 1.019 (1.001-1.035) Urine Protein Trace H (Negative) Urine Glucose (UA) Negative (Negative) Urine Ketones Negative (Negative) Urine Blood Large H (Negative) Urine Nitrite Negative (Negative) Urine Bilirubin Negative (Negative) Urine Urobilinogen <2.0 (<2.0) mg/dL Ur Leukocyte Esterase Large H (Negative) Urine RBC >182 H (0-5) /hpf Urine WBC 78 H (0-5) /hpf Ur Squamous Epith Cells 2 (0-4) /hpf Urine Bacteria Occasional H (None) /hpf Urine Mucus Rare H (None) /hpf Disposition Clinical Impression: UTI (urinary tract infection), Dysuria, Right ankle swelling Disposition: HOME SELF-CARE Condition: Good Instructions (If sedation given, give patient instructions): Ankle Sprain (ED), Urinary Tract Infection in Women (ED) Additional Instructions: Please use medication as discussed. Please follow-up with family doctor in the next 2 days. Please return to emergency room if the symptoms increase or worsen or for any other concerns. Prescriptions: Cephalexin [Keflex] 500 mg PO Q6HR 7 Days #28 cap Is patient prescribed a controlled substance at d/c from ED?: No Referrals: Babak Fiore MD [Primary Care Provider] - 1-2 days Time of Disposition: 09:35
[2020-07-07 10:03] VITALS: BP 114/75; PULSE 52; TEMP 98.3
== END 2020-07-07 10:21 | disposition home or self-care (01) ==
LOC: EC 08:23
DX: N39.0 Urinary tract infection, site not specified (principal); R22.41 Localized swelling, mass and lump, right lower limb; R30.0 Dysuria; I48.91 Unspecified atrial fibrillation; E11.9 Type 2 diabetes mellitus without complications; E78.5 Hyperlipidemia, unspecified; I10 Essential (primary) hypertension; E03.9 Hypothyroidism, unspecified; F32.9 Major depressive disorder, single episode, unspecified; Z79.84 Long term (current) use of oral hypoglycemic drugs; Z79.01 Long term (current) use of anticoagulants; Z79.890 Hormone replacement therapy; Z79.899 Other long term (current) drug therapy; Z90.49 Acquired absence of other specified parts of digestive tract
CPT/HCPCS: 81001; 87086; 73610; 93971; 99284; 29515; L4350

== ENCOUNTER → 2020-08-29 | Outpatient (CLI) | payer BC ==
--- NOTE | 2020-08-29 08:09 | XR ---
EXAMINATION TYPE: XR ankle complete RT DATE OF EXAM: 08/29/2020 CLINICAL HISTORY: Pain. Possible recent fracture, abnormal x-ray. TECHNIQUE: Frontal, lateral and oblique images of the right ankle are obtained. COMPARISON: Prior right ankle x-ray July 07, 2020. FINDINGS: There is no new acute fracture/dislocation evident in the right ankle. Stable 2 mm bony f ragment near level of the medial malleolus. Just inferior to this there is small to moderate inferior bony projection or spur. Small bony projection or spurring from the lateral malleolus with focal mil d to moderate soft tissue swelling or prominence inferior to this. Ankle Mortise appears stable and w ithin normal limits. Large inferior calcaneal spur redemonstrated. Mild to moderate spurring and narr owing throughout the hindfoot and mid foot structures on lateral view redemonstrated. IMPRESSION: As above. No significant change from recent x-ray.
== END | disposition home or self-care (01) ==
LOC: RADXRMAIN 07:21
PROVIDERS: ATTEND Family Medicine
DX: M77.31 Calcaneal spur, right foot (principal); M25.871 Other specified joint disorders, right ankle and foot

== ENCOUNTER → 2020-09-30 | Outpatient (CLI) | payer BC ==
[2020-09-30 17:04] LABS: African American GFR (CKD) 90.9 (60.0-200.0); Albumin 4.5 g/dL (3.80-4.90); Albumin/Globulin Ratio 2.14 (1.60-3.17); Anion Gap 9.6 mmol/L (4.00-12.00); BUN/Creat Ratio 21.25 Ratio (12.00-20.00); Calcium 9.2 mg/dL (8.7-10.3); Carbon Dioxide 25.4 mmol/L (21.6-31.8); Chol/HDL Ratio 3.17; Globulin 2.1 g/dL (1.6-3.3); Non-African American GFR(CKD) 78.5 (60.0-200.0); Potassium 4.2 mmol/L (3.5-5.5); Total Bilirubin 0.5 mg/dL (0.3-1.2); Total Protein 6.6 g/dL (6.2-8.2)
[2020-09-30 17:35] LABS: Hemoglobin A1C 5.5 % (4.0-6.0)
== END | disposition home or self-care (01) ==
LOC: LABWHC1 10:28
PROVIDERS: ATTEND Family Medicine
DX: E11.65 Type 2 diabetes mellitus with hyperglycemia (principal)
CPT/HCPCS: 36415; 80053; 80061; 83036

== ENCOUNTER → 2021-04-28 | Outpatient (CLI) | payer BC ==
[2021-04-28 11:02] LABS: Basophils # (A) 0.06 X 10*3/uL (0.00-0.10); Basophils % (A) 0.9 %; Eosinophils # (A) 0.14 X 10*3/uL (0.04-0.35); Eosinophils % (A) 2.2 %; HCT 46.4 % (37.2-46.3); HGB 15.4 g/dL (12.0-15.0); Lymphocytes # (A) 1.92 X 10*3/uL (0.90-5.00); Lymphocytes % (A) 29.5 %; MCHC 33.2 g/dL (32.0-37.0); MCV 96.5 fL (80.0-97.0); Monocytes # (A) 0.57 X 10*3/uL (0.20-1.00); Monocytes % (A) 8.8 %; Neutrophils # (A) 3.78 X 10*3/uL (1.80-7.70); Neutrophils % (A) 58.1 %; Platelet Count 324 X 10*3/uL (140-440); RBC 4.81 X 10*6/uL (4.10-5.20); RDW 12.1 % (11.5-14.5)
[2021-04-28 15:21] LABS: African American GFR (CKD) 68.9 (60.0-200.0); Albumin 4.5 g/dL (3.80-4.90); Albumin/Globulin Ratio 1.8 (1.60-3.17); Anion Gap 9.4 mmol/L (4.00-12.00); Calcium 9.5 mg/dL (8.7-10.3); Carbon Dioxide 25.6 mmol/L (21.6-31.8); Chol/HDL Ratio 3.22; Globulin 2.5 g/dL (1.6-3.3); LDL Cholesterol,Calculated 84.2 mg/dL (0.0-131.0); Non-African American GFR(CKD) 59.5 (60.0-200.0); Potassium 4.4 mmol/L (3.5-5.5); VLDL Calculation 17.8 mg/dL (5.00-40.00)
[2021-04-28 15:29] LABS: T4, Free (Free Thyroxine) 1.4 ng/dL (0.80-1.80)
[2021-04-29 13:15] LABS: Microalbumin Creatinine Ratio <30 mg/g Creat (0-30); Urine Creatinine 141.7 mg/dL
== END | disposition home or self-care (01) ==
LOC: LABWHC1 07:23
PROVIDERS: ATTEND Family Medicine
DX: E11.65 Type 2 diabetes mellitus with hyperglycemia (principal); E06.3 Autoimmune thyroiditis
CPT/HCPCS: 36415; 80053; 80061; 82043; 82570; 83036; 84439; 84443; 84481; 85025

== ENCOUNTER → 2021-04-29 | Outpatient (CLI) | payer BC ==
[2021-04-29 10:09] VITALS: BP 120/81; PULSE 82; RESP 16; TEMP 98.4
--- NOTE | 2021-04-29 11:18 | P.HPOB ---
History of Present Illness H&P Date: 04/29/21 Chief Complaint: The patient is here for her routine gynecologic exam. This is a 66-year-old with an LMP of 2006. The patient has been with her boyfriend for 11 months. They are sexually active. She has been having problems achieving orgasm. She also has not been able to reach orgasm with self-stimulation. She states she previously had been able to achieve orgasm in the past. She feels that she does have sexual desire and most of the time is not having problems with dryness. She denies pain with intercourse. She thinks she reaches a point when she should be getting closer to orgasm, but cannot climax. She is otherwise without complaints and denies any post menopausal bleeding. Review of Systems The patient has lost 23 pounds over the last 2 years and about 33 pounds over the past 1 year. She states she lost weight with diet and exercise. She has been on a low carbohydrate diet. She denies respiratory, cardiac, or G.I. problems. Past Medical History Past Medical History: Atrial Fibrillation, Diabetes Mellitus, Hyperlipidemia, Hypertension, Thyroid Disorder Additional Past Medical History / Comment(s): Type II diabetes, hypothyroidism. History of Any Multi-Drug Resistant Organisms: None Reported Past Surgical History: Adenoidectomy, Cholecystectomy, Tonsillectomy Additional Past Surgical History / Comment(s): ESS, colonoscopy 2019(next after 5yr). Past Anesthesia/Blood Transfusion Reactions: No Reported Reaction, Motion Sickness Past Psychological History: Depression Additional Psychological History / Comment(s): She has been on medication for a mood disorder. She is independent. Smoking Status: Never smoker Past Alcohol Use History: Occasional (About 4 beers per week) Additional Past Alcohol Use History / Comment(s): Quit smoking in her late 20s. Past Drug Use History: None Reported Additional History: She is and has been with her boyfriend since 2019. She does not live with him. 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 - Past Family History Father Family Medical History: Cancer, Coronary Artery Disease (CAD), Diabetes Mellitus, Liver Disease Additional Family Medical History / Comment(s): Father had liver cancer and at the age of 67yrs. Mother Family Medical History: Cancer Additional Family Medical History / Comment(s): Grave's dx, from lung cancer with mets at the age of 72 yrs. Brother(s) Family Medical History: Cancer, Myocardial Infarction ([place]) Additional Family Medical History / Comment(s): 2 brothers had MIs. One brother had colon cancer. Sister(s) Family Medical History: Cancer Additional Family Medical History / Comment(s): Half-sister had breast cancer. Daughter(s) Additional Family Medical History / Comment(s): Congenital heart defect including pulmonary valve stenosis and ASD. Medications and Allergies Home Medications Medication Instructions Recorded Confirmed Type Levothyroxine Sodium [Synthroid] 50 mcg PO DAILY 05/22/14 04/29/21 History Apixaban [Eliquis] 5 mg PO BID #60 tab 11/25/16 04/29/21 Rx Hydrochlorothiazide 12.5 mg PO DAILY 08/22/18 04/29/21 History [hydroCHLOROthiazide] Pravastatin Sodium [Pravachol] 40 mg PO HS 08/22/18 04/29/21 History metFORMIN HCL [Glucophage] 1,000 mg PO DAILY 03/14/19 04/29/21 History Metoprolol Tartrate [Lopressor] 12.5 mg PO DAILY 07/07/20 04/29/21 History Allergies Allergy/AdvReac Type Severity Reaction Status Date / Time No Known Allergies Allergy Verified 04/29/21 10:02 Exam Vital Signs Temp Pulse Resp BP Pulse Ox 04/29/21 10:06 98.4 F 82 16 120/81 99 Intake and Output 04/28/21 04/29/21 04/29/21 22:59 06:59 14:59 Other: Weight 83.915 kg Height 5 feet 4 inches, weight 185 pounds, BMI 31.8. This is a well-developed well-nourished white female who is alert and oriented times 3 in no acute distress. HEENT: Within normal limits. NECK: Supple without mass or thyromegaly. CHEST AND LUNGS: Clear to auscultation. HEART: Regular rate and rhythm. BREASTS: Are without mass or discharge. AXILLARY EXAM: Negative for adenopathy. BACK: Negative for CVA tenderness. ABDOMEN: Soft, nontender, without palpable masses. PELVIC EXAM: Normal external genitalia with mild to moderate atrophy. Cervix and vagina appear normal with mild to moderate atrophy. There is no unusual dischar ge. There is no evidence of prolapse. The uterus is midposition, nongravid size and nontender. There are no palpable adnexal masses or tenderness. RECTAL EXAM: Rectovaginal exam is negative for mass or tenderness and is negative for occult blood. EXTREMITIES: Nontender. IMPRESSION: 1. 66-year-old menopausal female with normal gynecologic exam. 2. Anorgasmia with her new sexual partner with no significant physical findings on exam today. Differential diagnosis will include natural menopausal changes, psychological anorgasmia, inhibition from her beta blockers, neurologic changes from her diabetes, relative vaginal dryness secondary to dental atrophy, thyroid dysfunction, alcohol inhibition, and idiopathic anorgasmia. PLAN: 1. Pap smear was obtained. If this is normal, we will consider discontinuing Pap smears since she has had no history of cervical neoplasia and has been adequately screened. 2. Self breast awareness was discussed with the patient. We have also discussed symptoms associated with inflammatory breast cancer. 3. Screening mammogram will be due in June and the order slip was given to the patient for this. 4. We have discussed a trial of estradiol vaginal cream. She is interested in trying this. I have advised her to check with her [employer] consultant to make sure that they do not seem a problem with using estrogen vaginal cream with her history of atrial fibrillation. The electronic prescription for Estrace vaginal cream 1 g into the vagina 2 times weekly will be sent to [facility] on [facility]. 5. Osteoporosis prevention was discussed. I have stressed the importance of adequate calcium, vitamin D and regular exercise. Recommended amounts of calcium and vitamin D were also discussed. 6. She has completed her Covid vaccination series. 7. She was advised to return in one year for her annual well woman exam and as needed.
--- NOTE | 2021-05-12 16:14 | P.PN ---
Progress Note - Text Progress Note Date: 05/12/21 OUTPATIENT FOLLOW-UP NOTE TEST(S)/RESULTS: Pap smear done on 04/29/2021 was negative. METHOD OF NOTIFICATION: The patient was notified by phone. PATIENT COMMENTS: The patient is happy to hear this result. DIAGNOSIS: Negative Pap smear. DISCUSSION: I have reminded the patient to discuss the use of estrogen vaginal cream with her emergency physician to make sure that the emergency physician is okay with using this prescription. She states she will do that. PLAN: She was advised to return in one year for her annual well woman exam and as needed.
== END | disposition home or self-care (01) ==
LOC: WWCWWP 09:46
PROVIDERS: ATTEND Obstetrics & Gynecology
DX: Z53.9 Procedure and treatment not carried out, unspecified reason (principal)

== ENCOUNTER → 2021-06-19 | Outpatient (CLI) | payer BC ==
--- NOTE | 2021-06-22 10:47 | MM ---
Reason for exam: screening (asymptomatic). Last mammogram was performed 1 year ago. History: Patient is postmenopausal. Family history of breast cancer in sister at age 50. Took hormonal contraceptives for 1 year. Physical Findings: A clinical breast exam by your physician is recommended on an annual basis and results should be correlated with mammographic findings. MG Screening Mammo w CAD Bilateral CC and MLO view(s) were taken. Prior study comparison: June 18, 2020, bilateral MG 3d diag mammo w/cad MELY. March 14, 2019, bilateral MG 3d screening mammo w/cad. There are scattered fibroglandular densities. Benign appearing bilateral calcifications. No significant changes when compared with prior studies. ASSESSMENT: Benign, BI-RAD 2 RECOMMENDATION: Routine screening mammogram of both breasts in 1 year.
== END | disposition home or self-care (01) ==
LOC: RADMAMWWP 12:43
PROVIDERS: ATTEND Obstetrics & Gynecology
DX: Z12.31 Encounter for screening mammogram for malignant neoplasm of breast (principal)
CPT/HCPCS: 77067

== ENCOUNTER 2021-07-17 14:39 | Observation (INO) | payer BC ==
[2021-07-17 16:16] LABS: Basophils # (A) 0.1 k/uL (0-0.2); Basophils % (A) 1 %; Eosinophils # (A) 0.3 k/uL (0-0.7); Eosinophils % (A) 4 %; HCT 46.6 % (34.0-46.0); Lymphocytes # (A) 2.8 k/uL (1.0-4.8); Lymphocytes % (A) 41 %; MCH 32.6 pg (25.0-35.0); MCHC 34.3 g/dL (31.0-37.0); Mean Platelet Volume 7.9; Monocytes # (A) 0.4 k/uL (0-1.0); Monocytes % (A) 6 %; Neutrophils % (A) 45 %; Platelet Count 271 k/uL (150-450); WBC 6.7 k/uL (3.8-10.6)
[2021-07-17 16:26] LABS: ALT 24 U/L (4-34); AST 28 U/L (14-36); African American GFR (CKD) >90 (>60 ml/min/1.73 sqM); Albumin 4.1 g/dL (3.5-5.0); Alkaline Phosphatase 64 U/L (38-126); Anion Gap 7 mmol/L; Blood Urea Nitrogen 26 mg/dL (7-17); Calcium 9.1 mg/dL (8.4-10.2); Carbon Dioxide 24 mmol/L (22-30); Chloride 108 mmol/L (98-107); Glucose 110 mg/dL (74-99); INR 0.9 (<1.2); Magnesium 2.2 mg/dL (1.6-2.3); Non-African American GFR(CKD) >90 (>60 ml/min/1.73 sqM); Partial Thromboplastin Time 24.3 sec (22.0-30.0); Potassium 3.8 mmol/L (3.5-5.1); Prothrombin Time 9.8 sec (9.0-12.0); Sodium 139 mmol/L (137-145); Total Bilirubin 0.4 mg/dL (0.2-1.3)
--- NOTE | 2021-07-17 16:33 | ED ---
General Adult HPI - General Chief complaint: Arrhythmia/Palpitations Stated complaint: Palpitations, Dizziness Time Seen by Provider: 07/17/21 16:24 Source: patient, RN notes reviewed Mode of arrival: ambulatory Limitations: no limitations - History of Present Illness Initial comments: Patient is a pleasant 66-year-old female presenting to the emergency department with episodes of lightheadedness. Onset of symptoms was close to a month ago however has been getting worse the past few days. Patient is now having up to episode 7 times per day. Patient feels lightheaded. Patient occasionally has palpitations of racing heart. No chest pain. No dyspnea. - Related Data Home Medications Medication Instructions Recorded Confirmed Levothyroxine Sodium [Synthroid] 50 mcg PO DAILY 05/22/14 07/17/21 Hydrochlorothiazide 12.5 mg PO DAILY 08/22/18 07/17/21 [hydroCHLOROthiazide] Pravastatin Sodium [Pravachol] 40 mg PO HS 08/22/18 07/17/21 Metoprolol Tartrate [Lopressor] 12.5 mg PO BID 07/07/20 07/17/21 metFORMIN HCL ER [Glucophage XR] 500 mg PO DAILY 07/17/21 07/17/21 Previous Rx's Medication Instructions Recorded Apixaban [Eliquis] 5 mg PO BID #60 tab 11/25/16 Allergies Allergy/AdvReac Type Severity Reaction Status Date / Time No Known Allergies Allergy Verified 07/17/21 17:20 Review of Systems ROS Statement: Those systems with pertinent positive or pertinent negative responses have been documented in the HPI. ROS Other: All systems not noted in ROS Statement are negative. Constitutional: Denies: fever Eyes: Denies: eye pain ENT: Denies: ear pain Respiratory: Denies: cough, dyspnea Cardiovascular: Reports: palpitations. Denies: chest pain Endocrine: Denies: fatigue Gastrointestinal: Denies: abdominal pain Genitourinary: Denies: urgency Musculoskeletal: Denies: back pain Skin: Denies: rash Neurological: Reports: as per HPI. Denies: weakness, confusion Past Medical History Past Medical History: Atrial Fibrillation, Diabetes Mellitus, Hyperlipidemia, Hypertension, Thyroid Disorder Additional Past Medical History / Comment(s): Type II diabetes, hypothyroidism. History of Any Multi-Drug Resistant Organisms: None Reported Past Surgical History: Adenoidectomy, Cholecystectomy, Tonsillectomy Additional Past Surgical History / Comment(s): ESS, colonoscopy 2019(next after 5yr). Past Anesthesia/Blood Transfusion Reactions: No Reported Reaction, Motion Sickness Past Psychological History: Depression Smoking Status: Never smoker Past Alcohol Use History: Occasional Past Drug Use History: None Reported - Past Family History Father Family Medical History: Cancer, Coronary Artery Disease (CAD), Diabetes Mellitus, Liver Disease Additional Family Medical History / Comment(s): Father had liver cancer and at the age of 67yrs. Mother Family Medical History: Cancer Additional Family Medical History / Comment(s): Grave's dx, from lung cancer with mets at the age of 72 yrs. Brother(s) Family Medical History: Cancer, Myocardial Infarction ([place]) Additional Family Medical History / Comment(s): 2 brothers had MIs. One brother had colon cancer. Sister(s) Family Medical History: Cancer Additional Family Medical History / Comment(s): Half-sister had breast cancer. Daughter(s) Additional Family Medical History / Comment(s): Congenital heart defect including pulmonary valve stenosis and ASD. General Exam Limitations: no limitations General appearance: alert, in no apparent distress Head exam: Present: normocephalic Eye exam: Present: normal appearance Neck exam: Present: normal inspection Respiratory exam: Present: normal lung sounds bilaterally Cardiovascular Exam: Present: regular rate, normal rhythm GI/Abdominal exam: Present: soft. Absent: tenderness Extremities exam: Present: normal inspection. Absent: pedal edema, calf tenderness Neurological exam: Present: alert Psychiatric exam: Present: normal affect, normal mood Skin exam: Present: normal color Course Vital Signs 07/17/21 07/17/21 15:27 16:47 Temperature 98.0 F Pulse Rate 42 L 61 Respiratory 18 16 Rate Blood Pressure 122/77 128/94 O2 Sat by Pulse 97 99 Oximetry - Reevaluation(s) Reevaluation #1: 07/17/21 17:21 Repeat EKG shows sinus rhythm with premature H Cho complexes. AR 150. QRS 82. QT 422. QTC 493. Left axis. LVH criteria. Septal Q waves. No acute ST change. 07/17/21 18:07 EKG #3 shows atrial flutter with variable block. QRS 88. QT 390. QTC 477. Left axis. LVH criteria. Nonspecific ST-T. EKG Findings - EKG Comments: EKG Findings:: Sinus bradycardia with a rate of 56. AR 144. QRS 84. QT 410. QTc 395. Left axis. Septal Q waves. No acute ST change. Medical Decision Making - Medical Decision Making Patient reevaluated and updated. Case was discussed with Dr. Ramos, who will admit covering for Dr. Peres. - Lab Data Result diagrams: 07/17/21 15:58 07/17/21 15:58 Lab Results 07/17/21 07/17/21 07/17/21 Range/Units 15:58 15:58 15:58 WBC 6.7 (3.8-10.6) k/uL RBC 4.90 (3.80-5.40) m/uL Hgb 16.0 (11.4-16.0) gm/dL Hct 46.6 H (34.0-46.0) % MCV 95.0 (80.0-100.0) fL MCH 32.6 (25.0-35.0) pg MCHC 34.3 (31.0-37.0) g/dL RDW 12.0 (11.5-15.5) % Plt Count 271 (150-450) k/uL MPV 7.9 Neutrophils % 45 % Lymphocytes % 41 % Monocytes % 6 % Eosinophils % 4 % Basophils % 1 % Neutrophils # 3.0 (1.3-7.7) k/uL Lymphocytes # 2.8 (1.0-4.8) k/uL Monocytes # 0.4 (0-1.0) k/uL Eosinophils # 0.3 (0-0.7) k/uL Basophils # 0.1 (0-0.2) k/uL PT 9.8 (9.0-12.0) sec INR 0.9 (<1.2) APTT 24.3 (22.0-30.0) sec Sodium 139 (137-145) mmol/L Potassium 3.8 (3.5-5.1) mmol/L Chloride 108 H (98-107) mmol/L Carbon Dioxide 24 (22-30) mmol/L Anion Gap 7 mmol/L BUN 26 H (7-17) mg/dL Creatinine 0.69 (0.52-1.04) mg/dL Est GFR (CKD-EPI)AfAm >90 (>60 ml/min/1.73 sqM) Est GFR (CKD-EPI)NonAf >90 (>60 ml/min/1.73 sqM) Glucose 110 H (74-99) mg/dL Calcium 9.1 (8.4-10.2) mg/dL Magnesium 2.2 (1.6-2.3) mg/dL Total Bilirubin 0.4 (0.2-1.3) mg/dL AST 28 (14-36) U/L ALT 24 (4-34) U/L Alkaline Phosphatase 64 (38-126) U/L Troponin I (0.000-0.034) ng/mL Total Protein 7.0 (6.3-8.2) g/dL Albumin 4.1 (3.5-5.0) g/dL TSH 1.480 (0.465-4.680) mIU/L Free T4 (0.78-2.19) ng/dL Free T3 pg/mL (2.8-5.3) pg/ml 07/17/21 07/17/21 Range/Units 15:58 15:58 WBC (3.8-10.6) k/uL RBC (3.80-5.40) m/uL Hgb (11.4-16.0) gm/dL Hct (34.0-46.0) % MCV (80.0-100.0) fL MCH (25.0-35.0) pg MCHC (31.0-37.0) g/dL RDW (11.5-15.5) % Plt Count (150-450) k/uL MPV Neutrophils % % Lymphocytes % % Monocytes % % Eosinophils % % Basophils % % Neutrophils # (1.3-7.7) k/uL Lymphocytes # (1.0-4.8) k/uL Monocytes # (0-1.0) k/uL Eosinophils # (0-0.7) k/uL Basophils # (0-0.2) k/uL PT (9.0-12.0) sec INR (<1.2) APTT (22.0-30.0) sec Sodium (137-145) mmol/L Potassium (3.5-5.1) mmol/L Chloride (98-107) mmol/L Carbon Dioxide (22-30) mmol/L Anion Gap mmol/L BUN (7-17) mg/dL Creatinine (0.52-1.04) mg/dL Est GFR (CKD-EPI)AfAm (>60 ml/min/1.73 sqM) Est GFR (CKD-EPI)NonAf (>60 ml/min/1.73 sqM) Glucose (74-99) mg/dL Calcium (8.4-10.2) mg/dL Magnesium (1.6-2.3) mg/dL Total Bilirubin (0.2-1.3) mg/dL AST (14-36) U/L ALT (4-34) U/L Alkaline Phosphatase (38-126) U/L Troponin I <0.012 (0.000-0.034) ng/mL Total Protein (6.3-8.2) g/dL Albumin (3.5-5.0) g/dL TSH (0.465-4.680) mIU/L Free T4 1.15 (0.78-2.19) ng/dL Free T3 pg/mL 3.6 (2.8-5.3) pg/ml Disposition Clinical Impression: Atrial flutter, Lightheadedness Disposition: ADMITTED IP TO THIS HOSP Is patient prescribed a controlled substance at d/c from ED?: No Referrals: Babak Fiore MD [Primary Care Provider] - 1-2 days Decision Time: 18:46
[2021-07-17 17:09] LABS: T4, Free (Free Thyroxine) 1.15 ng/dL (0.78-2.19)
--- NOTE | 2021-07-17 17:09 | XR ---
EXAMINATION TYPE: XR chest 1V portable DATE OF EXAM: 07/17/2021 HISTORY: Shortness of breath. COMPARISON: 11/25/2016 TECHNIQUE: Single view of the chest is submitted. FINDINGS: Demonstrated are scattered senescent parenchymal change. There is no evidence for focal infiltrate. The heart is stable. Hilar and mediastinal structures are within normal limits. Degenerative changes are seen of the dorsal spine. IMPRESSION: 1. Chronic changes without evidence for acute pulmonary disease.
[2021-07-17] MEDS ORDERED: NALOXONE 0.4 MG/ML 1 ML VIAL IV PRN ×2 (18:30→18:47)
[2021-07-17] MEDS ORDERED: ACETAMINOPHEN TAB 325 MG TAB PO PRN (18:30)
[2021-07-17] MEDS ORDERED: bisacodyL 5 MG TABLET.DR PO PRN (18:30)
[2021-07-17] MEDS ORDERED: ONDANSETRON 4 MG/2 ML VIAL IVP PRN (18:30)
[2021-07-17] MEDS ORDERED: MAGNESIUM HYDROXIDE 2,400 MG/10 ML CUP PO PRN (18:30)
[2021-07-17] MEDS ORDERED: MAG HYDROX/AL HYDROX/SIMETH 30 ML CUP PO PRN (18:30)
[2021-07-17] MEDS ORDERED: CALCIUM CARBONATE 500 MG CHEWABLE PO PRN (18:30)
--- NOTE | 2021-07-17 18:48 | P.HPIM ---
History of Present Illness H&P Date: 07/17/21 (66-year-old female with past medical history of A. fib hypertension diabetes admitted to the hospital for dizziness that has been going on and off for the last few weeks that get worse over the last few days Patient denies any chest pain or shortness of breath or any weakness in the arms or legs did not complain of any slurred speech Patient states she did have episodes like this in the past Review of systems and systems has been reviewed all negative and positive findings as per history of present. Constitutional: No acute distress, conversant, pleasant Eyes: Anicteric sclerae, moist conjunctiva, no lid-lag PERRLA ENMT: NC/AT Oropharynx clear, no erythema, exudates Neck: Supple, FROM, no masses, or JVD No carotid bruits No thyromegaly Lungs: Clear to auscultation Clear to percussion Normal respiratory effort, no accessory muscle use Cardiovascular: Heart regular in rate and rhythm, No murmurs, gallops, or rubs No peripheral edema Abdominal: Soft Nontender, no guarding, rebound or rigidity Abdomen moving with respiration Normoactive bowel sounds No hepatomegaly, No splenomegaly No palpable mass No abdominal wall hernia noted Skin: Normal temperature, tone, texture, turgor No induration No subcutaneous nodules No rash, lesions No ulcers Extremities: No digital cyanosis No clubbing Pedal pulses intact and symmetrical Radial pulses intact and symmetrical Normal gait and station No calf tenderness Psychiatric:Alert and oriented to person, place and time Appropriate affect Intact judgement Neuro: Muscles Strength 5/5 in all 4 extremities Sensation to light touch grossly present throughout Cranial nerves II-XII grossly intact No focal sensory deficits Assessment and plan bradycardia likely related to beta blockers will hold beta blockers tonight and will consult cardiology Dizziness exact etiology not clear we'll check computed tomography scan of the brain since the patient is on adequate school called and it was for tonight until the computed tomography scan is done if the computed tomography scan is negative patient can resume aqueous and an MRI will be ordered Diabetes but the patient on sliding scale insulin Hypertension Observe overnight We'll check cardiac enzymes Past Medical History Past Medical History: Atrial Fibrillation, Diabetes Mellitus, Hyperlipidemia, Hypertension, Thyroid Disorder Additional Past Medical History / Comment(s): Type II diabetes, hypothyroidism. History of Any Multi-Drug Resistant Organisms: None Reported Past Surgical History: Adenoidectomy, Cholecystectomy, Tonsillectomy Additional Past Surgical History / Comment(s): ESS, colonoscopy 2019(next after 5yr). Past Anesthesia/Blood Transfusion Reactions: No Reported Reaction, Motion Sickness Past Psychological History: Depression Smoking Status: Never smoker Past Alcohol Use History: Occasional Past Drug Use History: None Reported - Past Family History Father Family Medical History: Cancer, Coronary Artery Disease (CAD), Diabetes Irma litus, Liver Disease Additional Family Medical History / Comment(s): Father had liver cancer and at the age of 67yrs. Mother Family Medical History: Cancer Additional Family Medical History / Comment(s): Grave's dx, from lung cancer with mets at the age of 72 yrs. Brother(s) Family Medical History: Cancer, Myocardial Infarction ([place]) Additional Family Medical History / Comment(s): 2 brothers had MIs. One brother had colon cancer. Sister(s) Family Medical History: Cancer Additional Family Medical History / Comment(s): Half-sister had breast cancer. Daughter(s) Additional Family Medical History / Comment(s): Congenital heart defect including pulmonary valve stenosis and ASD. Medications and Allergies Home Medications Medication Instructions Recorded Confirmed Type Levothyroxine Sodium [Synthroid] 50 mcg PO DAILY 05/22/14 07/17/21 History Apixaban [Eliquis] 5 mg PO BID #60 tab 11/25/16 07/17/21 Rx Hydrochlorothiazide 12.5 mg PO DAILY 08/22/18 07/17/21 History [hydroCHLOROthiazide] Pravastatin Sodium [Pravachol] 40 mg PO HS 08/22/18 07/17/21 History Metoprolol Tartrate [Lopressor] 12.5 mg PO BID 07/07/20 07/17/21 History metFORMIN HCL ER [Glucophage XR] 500 mg PO DAILY 07/17/21 07/17/21 History Allergies Allergy/AdvReac Type Severity Reaction Status Date / Time No Known Allergies Allergy Verified 07/17/21 17:20 Physical Exam Vitals: Vital Signs Temp Pulse Resp BP Pulse Ox 07/17/21 16:47 61 16 128/94 99 07/17/21 15:27 98.0 F 42 L 18 122/77 97 Intake and Output 07/17/21 07/17/21 07/17/21 06:59 14:59 22:59 Other: Weight 83.915 kg Results CBC & Chem 7: 07/17/21 15:58 07/17/21 15:58 Labs: Abnormal Lab Results - Last 24 Hours (Table) 07/17/21 07/17/21 Range/Units 15:58 15:58 Hct 46.6 H (34.0-46.0) % Chloride 108 H (98-107) mmol/L BUN 26 H (7-17) mg/dL Glucose 110 H (74-99) mg/dL
[2021-07-17] MEDS: SODIUM CHLORIDE 0.9% 1,000 ML IV SCH (23:02)
[2021-07-17] MEDS: PRAVASTATIN SODIUM 40 MG TAB PO SCH (23:03)
--- NOTE | 2021-07-18 00:23 | CT ---
EXAMINATION TYPE: CT brain wo con DATE OF EXAM: 07/17/2021 COMPARISON: 03/02/2012 HISTORY: dizziness CT DLP: 1080.4 mGycm Automated exposure control for dose reduction was used. Ventricles have normal size. There is no mass effect nor midline shift. There is no sign of intracran ial hemorrhage. There is normal aeration of the mastoid sinuses. Calvarium is intact. IMPRESSION: Negative unenhanced head CT scan. No change.
[2021-07-18] MEDS: LEVOTHYROXINE 50 MCG TAB PO SCH (05:48)
[2021-07-18] MEDS: hydroCHLOROthiazide 12.5 MG CAP PO SCH (08:37)
[2021-07-18] MEDS: APIXABAN 5 MG TAB PO SCH ×2 (08:37→19:11)
[2021-07-18 09:03] LABS: Appearance,Urine Clear (Clear); Bilirubin,Urine Negative (Negative); Blood,Urine Negative (Negative); Color,Urine Yellow; Glucose,Urine (UA) Negative (Negative); Ketones,Urine Negative (Negative); Leukocyte Esterase,Urine Negative (Negative); Nitrite,Urine Negative (Negative); PH, Urine 5.5 (5.0-8.0); Protein,Urine Negative (Negative); Specific Gravity,Urine 1.017 (1.001-1.035); Urobilinogen,Urine <2.0 mg/dL (<2.0)
[2021-07-18 09:09] LABS: African American GFR (CKD) 106.1 (60.0-200.0); Albumin 3.6 g/dL (3.8-4.9); Albumin/Globulin Ratio 1.8 (1.60-3.17); Anion Gap 10.3 mmol/L (10.00-18.00); BUN/Creat Ratio 21.57 Ratio (12.00-20.00); Blood Urea Nitrogen 15.1 mg/dL (9.0-27.0); Calcium 8.5 mg/dL (8.7-10.3); Carbon Dioxide 21.7 mmol/L (20.0-27.5); Non-African American GFR(CKD) 91.6 (60.0-200.0); Potassium 3.9 mmol/L (3.5-5.5); Total Bilirubin 0.9 mg/dL (0.30-1.20); Total Protein 5.6 g/dL (6.2-8.2)
[2021-07-18 09:12] LABS: Basophils # (A) 0.06 X 10*3/uL (0.00-0.10); Basophils % (A) 1.2 %; Eosinophils # (A) 0.26 X 10*3/uL (0.04-0.35); HGB 14.5 g/dL (12.0-15.0); Lymphocytes # (A) 2.15 X 10*3/uL (0.90-5.00); Lymphocytes % (A) 41.7 %; MCH 31.7 pg (27.0-32.0); MCHC 32.2 g/dL (32.0-37.0); MCV 98.3 fL (80.0-97.0); Mean Platelet Volume 10.8 fL (9.5-12.2); Monocytes % (A) 9.7 %; Neutrophils # (A) 2.18 X 10*3/uL (1.80-7.70); Neutrophils % (A) 42.2 %; Platelet Count 269 X 10*3/uL (140-440); RBC 4.58 X 10*6/uL (4.10-5.20); WBC 5.16 X 10*3/uL (4.50-10.00)
[2021-07-18] MEDS: SODIUM CHLORIDE 0.9% 1,000 ML IV SCH ×2 (09:58→21:51)
[2021-07-18] MEDS: INSULIN ASPART (NovoLOG) 100 UNIT/ML VIAL SQ SCH ×3 (09:58→17:35)
--- NOTE | 2021-07-18 13:11 | MR ---
INDICATION: Patient age:Female; 66 years old; Reason for study: Dizziness, atrial fibrillation; COMPARISON: CT head 07/17/2021. TECHNIQUE: Multi planar, multi sequence imaging was performed through the brain including: T1, T2, In version recovery, Diffusion weighted imaging. No gadolinium was given. FINDINGS: The walters-white junctions, ventricular system, and cisterns appear unremarkable. Scattered areas of h igh T2/FLAIR signal intensity are seen within the white matter. Midline structures show no abnormalit y. Diffusion-weighted imaging shows no evidence of restricted diffusion. The bone marrow signal is within normal limits. Mucosal thickening of the maxillary sinuses left grea ter than right. The globes are unremarkable. IMPRESSION: 1. No evidence of intracranial mass or acute/subacute infarct. 2. Nonspecific white matter changes, likely secondary to small vessel ischemic disease.
[2021-07-18 13:22] LABS: Glucose,Whole Blood 111 mg/dL (75-99)
--- NOTE | 2021-07-18 13:41 | P.PN ---
Subjective Progress Note Date: 07/18/21 Principal diagnosis: She is okay today no chest pain no shortness of breath Constitutional: No acute distress, conversant, pleasant Eyes: Anicteric sclerae, moist conjunctiva, no lid-lag PERRLA ENMT: NC/AT Oropharynx clear, no erythema, exudates Neck: Supple, FROM, no masses, or JVD No carotid bruits No thyromegaly Lungs: Clear to auscultation Clear to percussion Normal respiratory effort, no accessory muscle use Cardiovascular: Heart regular in rate and rhythm, No murmurs, gallops, or rubs No peripheral edema Abdominal: Soft Nontender, no guarding, rebound or rigidity Abdomen moving with respiration Normoactive bowel sounds No hepatomegaly, No splenomegaly No palpable mass No abdominal wall hernia noted Skin: Normal temperature, tone, texture, turgor No induration No subcutaneous nodules No rash, lesions No ulcers Extremities: No digital cyanosis No clubbing Pedal pulses intact and symmetrical Radial pulses intact and symmetrical Normal gait and station No calf tenderness Psychiatric:Alert and oriented to person, place and time Appropriate affect Intact judgement Neuro: Muscles Strength 5/5 in all 4 extremities Sensation to light touch grossly present throughout Cranial nerves II-XII grossly intact No focal sensory deficits Assessment and plan dizziness resolved MRI of the brain is negative CT scan of the brain is negative 1 episode of bradycardia resolved cardiology has been consulted We'll discharge the patient home once ok it's okay by cardiology Objective - Vital Signs Vital signs: Vital Signs Temp 98 F 07/18/21 07:20 Pulse 59 L 07/18/21 07:20 Resp 16 07/18/21 07:20 BP 144/83 07/18/21 07:20 Pulse Ox 97 07/18/21 07:20 Intake & Output 07/17/21 07/18/21 07/18/21 18:59 06:59 18:59 Weight 83.915 kg 83.915 kg Other: # Voids 1 - Labs CBC & Chem 7: 07/18/21 06:44 07/18/21 06:44 Labs: Abnormal Lab Results - Last 24 Hours (Table) 07/17/21 07/17/21 07/18/21 Range/Units 15:58 15:58 06:44 Hct 46.6 H (34.0-46.0) % MCV 98.3 H (80.0-97.0) fL Chloride 108 H (98-107) mmol/L BUN 26 H (7-17) mg/dL BUN/Creatinine Ratio (12.00-20.00) Ratio Glucose 110 H (74-99) mg/dL POC Glucose (mg/dL) (75-99) mg/dL Calcium (8.7-10.3) mg/dL Total Protein (6.2-8.2) g/dL Albumin (3.8-4.9) g/dL 07/18/21 07/18/21 Range/Units 06:44 13:20 Hct (34.0-46.0) % MCV (80.0-97.0) fL Chloride (98-107) mmol/L BUN (7-17) mg/dL BUN/Creatinine Ratio 21.57 H (12.00-20.00) Ratio Glucose 119 H (74-99) mg/dL POC Glucose (mg/dL) 111 H (75-99) mg/dL Calcium 8.5 L (8.7-10.3) mg/dL Total Protein 5.6 L (6.2-8.2) g/dL Albumin 3.6 L (3.8-4.9) g/dL
--- NOTE | 2021-07-18 13:43 | P.DS ---
Providers Date of admission: 07/17/21 18:48 Expected date of discharge: 07/18/21 Attending physician: Ilir Ramos MD Consults: 07/17/21 18:47 Consult Physician Routine Consulting Provider: Tadeo Rodriguez Consult Reason/Comments: a flutter Do you want consulting provider notified?: Yes Primary care physician: [facility] Course: 66-year-old female admitted to the hospital with dizziness that has been gone for the last few weeks MRI of the brain was negative computed tomography scan of the brain was negative patient did have an episode of dany cardia which resolved remained stable Constitutional: No acute distress, conversant, pleasant Eyes: Anicteric sclerae, moist conjunctiva, no lid-lag PERRLA ENMT: NC/AT Oropharynx clear, no erythema, exudates Neck: Supple, FROM, no masses, or JVD No carotid bruits No thyromegaly Lungs: Clear to auscultation Clear to percussion Normal respiratory effort, no accessory muscle use Cardiovascular: Heart regular in rate and rhythm, No murmurs, gallops, or rubs No peripheral edema Abdominal: Soft Nontender, no guarding, rebound or rigidity Abdomen moving with respiration Normoactive bowel sounds No hepatomegaly, No splenomegaly No palpable mass No abdominal wall hernia noted Skin: Normal temperature, tone, texture, turgor No induration No subcutaneous nodules No rash, lesions No ulcers Extremities: No digital cyanosis No clubbing Pedal pulses intact and symmetrical Radial pulses intact and symmetrical Normal gait and station No calf tenderness Psychiatric:Alert and oriented to person, place and time Appropriate affect Intact judgement Neuro: Muscles Strength 5/5 in all 4 extremities Sensation to light touch grossly present throughout Cranial nerves II-XII grossly intact No focal sensory deficits Discharge plan atrial fib Dizziness nonspecific resolved MRI negative patient to follow-up with neurology as an outpatient Episode of bradycardia resolved Patient will be discharged home if it's okay with cardiology and to follow-up with neurology and primary care Patient Condition at Discharge: Good Plan - Discharge Summary Discharge Rx Participant: No New Discharge Prescriptions: New Meclizine [Antivert] 12.5 mg PO Q6H PRN 30 Days #60 tablet PRN Reason: Drowsiness Continue Levothyroxine Sodium [Synthroid] 50 mcg PO DAILY Apixaban [Eliquis] 5 mg PO BID #60 tab Pravastatin Sodium [Pravachol] 40 mg PO HS Hydrochlorothiazide [hydroCHLOROthiazide] 12.5 mg PO DAILY Metoprolol Tartrate [Lopressor] 12.5 mg PO BID metFORMIN HCL ER [Glucophage XR] 500 mg PO DAILY Discharge Medication List Levothyroxine Sodium [Synthroid] 50 mcg PO DAILY 05/22/14 [History] Apixaban [Eliquis] 5 mg PO BID #60 tab 11/25/16 [Rx] Hydrochlorothiazide [hydroCHLOROthiazide] 12.5 mg PO DAILY 08/22/18 [History] Pravastatin Sodium [Pravachol] 40 mg PO HS 08/22/18 [History] Metoprolol Tartrate [Lopressor] 12.5 mg PO BID 07/07/20 [History] metFORMIN HCL ER [Glucophage XR] 500 mg PO DAILY 07/17/21 [History] Meclizine [Antivert] 12.5 mg PO Q6H PRN 30 Days #60 tablet 07/18/21 [Rx] Follow up Appointment(s)/Referral(s): Babak Fiore MD [Primary Care Provider] - 1-2 days Discharge Disposition: HOME SELF-CARE
--- NOTE | 2021-07-18 14:01 | ECHOF ---
Referral Reason:PAF, dizziness MEASUREMENTS -------- HEIGHT: 162.6 cm WEIGHT: 83.9 kg BP: 144/83 RVIDd: 3.6 cm (< 3.3) IVSd: 1.0 cm (0.6 - 1.1) LVIDd: 5.0 cm (3.9 - 5.3) LVPWd: 1.1 cm (0.6 - 1.1) IVSs: 1.5 cm LVIDs: 2.7 cm LVPWs: 2.0 cm LAESV Index (A-L): 31.68 ml/m Ao Diam: 3.1 cm (2.0 - 3.7) AV Cusp: 1.6 cm (1.5 - 2.6) LA Diam: 4.3 cm (2.7 - 3.8) MV EXCURSION: 19.089 mm (> 18.000) MV EF SLOPE: 150 mm/s (70 - 150) EPSS: 0.8 cm MV E Francisco: 0.64 m/s MV DecT: 194 ms MV A Francisco: 0.86 m/s MV E/A Ratio: 0.74 RAP: 5.00 mmHg RVSP: 13.09 mmHg FINDINGS -------- This was a technically adequate study. The left ventricular size is normal. Left ventricular wall thickness is normal. Overall left vent ricular systolic function is normal with, an EF between 55 - 60 %. The right ventricle is mildly enlarged. LA is midly dilated 29-33ml/m2. The right atrial size is normal. Interatrial and interventricular septum intact. There is no evidence of aortic regurgitation. There is no evidence of aortic stenosis. Mild mitral regurgitation is present. Mild tricuspid regurgitation present. The pulmonic valve is normal. The aortic root size is normal. IVC Not well visulized. There is no pericardial effusion. CONCLUSIONS -------- 1. The left ventricular size is normal. 2. Left ventricular wall thickness is normal. 3. Overall left ventricular systolic function is normal with, an EF between 55 - 60 %. 4. The right ventricle is mildly enlarged. 5. LA is midly dilated 29-33ml/m2. 6. Mild mitral regurgitation is present. 7. Mild tricuspid regurgitation present. ENROLLMENT ELIGIBILITY REPRESENTATIVE: Alexandra Edmondson [facility]
--- NOTE | 2021-07-18 14:29 | P.CRDCN ---
History of Present Illness Consult date: 07/18/21 Requesting physician: Ilir Ramos Reason for Consult (text): dizziness Chief complaint: dizziness History of present illness: This is a pleasant 66-year-old female patient who follows with Dr. DOUG Mata in the office. She has history of hypertension, hyperlipidemia, diabetes, hypothyroidism and paroxysmal atrial fibrillation for which she is anticoagulated on Eliquis. Presented to the emergency department with recurrent episodes of dizziness. She's been having these episodes since March at which time she did see Dr. Mata in the office and was recommended to undergo event monitoring but the patient declined. The episodes have been progressively getting more frequent. They last less than a minute. She's had no syncope. Melva upon presentation patient was in what appeared to be in atrial flutter/tachycardia with controlled ventricular response, subsequently converted to sinus mechanism and this morning of the time of my exam is back in atrial flutter/atrial tachycardia. She did have an episode of dizziness this morning at around 10 after 7 and rhythm strips were reviewed and showed a brief episode of PAT/PAF with RVR. Further review of rhythm strips were reviewed and showed very brief pauses at time of conversion with the maximum pause of 1.8 seconds. Pressure has been stable. X-ray values show normal electrolytes, troponins negative 3 and normal thyroid function. Upon examination the patient is resting currently bed. She is currently not in sinus rhythm but is not aware of the arrhythmia. She's had no chest discomfort, shortness of breath, edema or palpitations. Past Medical History Past Medical History: Atrial Fibrillation, Diabetes Mellitus, Hyperlipidemia, Hypertension, Thyroid Disorder Additional Past Medical History / Comment(s): Type II diabetes, hypothyroidism. History of Any Multi-Drug Resistant Organisms: None Reported Past Surgical History: Adenoidectomy, Cholecystectomy, Tonsillectomy Additional Past Surgical History / Comment(s): ESS, colonoscopy 2019(next after 5yr). Past Anesthesia/Blood Transfusion Reactions: No Reported Reaction, Motion Sickness Past Psychological History: Depression Additional Psychological History / Comment(s): She has been on medication for a mood disorder. She is independent. Smoking Status: Former smoker Past Alcohol Use History: Occasional Additional Past Alcohol Use History / Comment(s): Quit smoking in her late 20s. Past Drug Use History: None Reported - Past Family History Father Family Medical History: Cancer, Coronary Artery Disease (CAD), Diabetes Mellitus, Liver Disease Additional Family Medical History / Comment(s): Father had liver cancer and at the age of 67yrs. Mother Family Medical History: Cancer Additional Family Medical History / Comment(s): Grave's dx, from lung cancer with mets at the age of 72 yrs. Brother(s) Family Medical History: Cancer, Myocardial Infarction (IA) Additional Family Medical History / Comment(s): 2 brothers had MIs. One brother had colon cancer. Sister(s) Family Medical History: Cancer Additional Family Medical History / Comment(s): Half-sister had breast cancer. Daughter(s) Additional Family Medical History / Comment(s): Congenital heart defect including pulmonary valve stenosis and ASD. Medications and Allergies Home Medications Medication Instructions Recorded Confirmed Type Levothyroxine Sodium [Synthroid] 50 mcg PO DAILY 05/22/14 07/17/21 History Apixaban [Eliquis] 5 mg PO BID #60 tab 11/25/16 07/17/21 Rx Hydrochlorothiazide 12.5 mg PO DAILY 08/22/18 07/17/21 History [hydroCHLOROthiazide] Pravastatin Sodium [Pravachol] 40 mg PO HS 08/22/18 07/17/21 History Metoprolol Tartrate [Lopressor] 12.5 mg PO BID 07/07/20 07/17/21 History metFORMIN HCL ER [Glucophage XR] 500 mg PO DAILY 07/17/21 07/17/21 History Allergies Allergy/AdvReac Type Severity Reaction Status Date / Time No Known Allergies Allergy Verified 07/17/21 17:20 Physical Exam Vitals: Vital Signs Temp Pulse Pulse Pulse Resp BP BP 07/18/21 07:20 98 F 59 L 16 144/83 07/18/21 02:00 98.6 F 49 L 16 123/77 07/17/21 22:19 98.4 F 97 18 123/86 07/17/21 22:12 98.4 F 97 18 07/17/21 20:52 98.8 F 94 15 124/81 07/17/21 16:47 61 16 128/94 07/17/21 15:27 98.0 F 42 L 18 122/77 BP Pulse Ox 07/18/21 07:20 97 07/18/21 02:00 96 07/17/21 22:19 98 07/17/21 22:12 123/86 98 07/17/21 20:52 99 07/17/21 16:47 99 07/17/21 15:27 97 Intake and Output 07/17/21 07/18/21 07/18/21 22:59 06:59 14:59 Other: # Voids 1 Weight 83.915 kg PHYSICAL EXAMINATION: This is a 66-year-old female in no apparent distress at the time of my examination. VITAL SIGNS: Blood pressure on 144/83, heart rate 59, respirations 16, temp 98F. Patient is 97 % on air. HEENT: Head is atraumatic, normocephalic. Pupils are equal, round. Sclerae anicteric. Conjunctivae are clear. Mucous membranes of the mouth are moist. Neck is supple. There is no elevated jugular venous pressure. No carotid bruit is heard. CHEST EXAMINATION: Clear to auscultation bilaterally. No wheezes rales or rhonchi. Respirations even and nonlabored. HEART EXAMINATION: Heart irregular rate and rhythm, positive S1 and S2. No S3. No S4. Systolic murmur. ABDOMEN: Soft, nontender. Bowel sounds are heard. No organomegaly noted. EXTREMITIES: 2+ peripheral pulses with no evidence of peripheral edema and no c group home tenderness noted. NEUROLOGIC EXAMINATION: Patient is awake, alert and oriented x3. Results 07/18/21 06:44 07/18/21 06:44 Cardiac Enzymes 07/17/21 07/17/21 07/17/21 Range/Units 15:58 15:58 19:38 AST 28 (14-36) U/L Troponin I <0.012 <0.012 (0.000-0.034) ng/mL 07/17/21 07/18/21 Range/Units 22:36 06:44 AST 20 (14-36) U/L Troponin I <0.012 (0.000-0.034) ng/mL Coagulation 07/17/21 Range/Units 15:58 PT 9.8 (9.0-12.0) sec APTT 24.3 (22.0-30.0) sec CBC 07/17/21 07/18/21 Range/Units 15:58 06:44 WBC 6.7 5.16 (3.8-10.6) k/uL RBC 4.90 4.58 (3.80-5.40) m/uL Hgb 16.0 14.5 (11.4-16.0) gm/dL Hct 46.6 H 45.0 (34.0-46.0) % Plt Count 271 269 (150-450) k/uL Comprehensive Metabolic Panel 07/17/21 07/18/21 Range/Units 15:58 06:44 Sodium 139 141 (137-145) mmol/L Potassium 3.8 3.9 (3.5-5.1) mmol/L Chloride 108 H 109 (98-107) mmol/L Carbon Dioxide 24 21.7 (22-30) mmol/L BUN 26 H 15.1 (7-17) mg/dL Creatinine 0.69 0.7 (0.52-1.04) mg/dL Glucose 110 H 119 H (74-99) mg/dL Calcium 9.1 8.5 L (8.4-10.2) mg/dL AST 28 20 (14-36) U/L ALT 24 20 (4-34) U/L Alkaline Phosphatase 64 47 (38-126) U/L Total Protein 7.0 5.6 L (6.3-8.2) g/dL Albumin 4.1 3.6 L (3.5-5.0) g/dL Current Medications Generic Name Dose Route Start Last Admin Trade Name Freq PRN Reason Stop Dose Admin Acetaminophen 650 mg 07/17/21 18:30 Acetaminophen Tab 325 Mg Tab PO Q6HR PRN Mild Pain or Fever > 100.5 Al Hydroxide/Mg Hydroxide 15 ml 07/17/21 18:30 Mag Hydrox/Al Hydrox/Simeth 30 Ml Cup PO Q6HR PRN Indigestion Apixaban 5 mg 07/18/21 09:00 07/18/21 08:37 Apixaban 5 Mg Tab PO 5 mg BID GUERO Administration Protocol Bisacodyl 5 mg 07/17/21 18:30 Bisacodyl 5 Mg Tablet.Dr PO DAILY PRN Constipation Calcium Carbonate/Glycine 1,000 mg 07/17/21 18:30 Calcium Carbonate 500 Mg Chewable PO Q4HR PRN Dyspepsia Hydrochlorothiazide 12.5 mg 07/18/21 09:00 07/18/21 08:37 Hydrochlorothiazide 12.5 Mg Cap PO 12.5 mg DAILY GUERO Administration Sodium Chloride 1,000 mls @ 75 mls/hr 07/17/21 19:00 07/18/21 09:58 Saline 0.9% IV Not Given .[id number] GUERO Insulin Aspart 0 unit 07/18/21 07:30 07/18/21 09:58 Insulin Aspart (Novolog) 100 Unit/Ml Vial SQ Not Given AC-TID [facility] Protocol Levothyroxine Sodium 50 mcg 07/18/21 06:30 07/18/21 05:48 Levothyroxine 50 Mcg Tab PO 50 mcg DAILY@0630 GUERO Administration Magnesium Hydroxide 2,400 mg 07/17/21 18:30 Magnesium Hydroxide 2,400 Mg/10 Ml Cup PO DAILY PRN Constipation Naloxone HCl 0.2 mg 07/17/21 18:30 Naloxone 0.4 Mg/Ml 1 Ml Vial IV Q2M PRN Opioid Reversal Naloxone HCl 0.2 mg 07/17/21 18:47 Naloxone 0.4 Mg/Ml 1 Ml Vial IV Q2M PRN Opioid Reversal Ondansetron HCl 4 mg 07/17/21 18:30 Ondansetron 4 Mg/2 Ml Vial IVP Q8HR PRN Nausea And Vomiting Pravastatin Sodium 40 mg 07/17/21 21:00 07/17/21 23:03 Pravastatin Sodium 40 Mg Tab PO 40 mg HS GUERO Administration Intake and Output 07/17/21 07/18/21 07/18/21 22:59 06:59 14:59 Other: # Voids 1 Weight 83.915 kg 07/18/21 06:44 07/18/21 06:44 Assessment and Plan Assessment: #1 symptoms of dizziness, brief but occurring several times a day and progressively becoming more frequent #2 paroxysmal atrial fibrillation #3 hypertension #4 hyperlipidemia #5 hypothyroidism, currently euthyroid #6 diabetes mellitus type 2 Plan: From cardiology's perspective we will obtain a 2-D echo with Doppler to assess cardiac structure and function. Continue to monitor on telemetry and inserted record rhythm strips during times of dizziness. We will continue to monitor the patient and provide further recommendations accordingly. The above dictated assessment and findings were discussed with signing physician. The impression and plan of care have been directed as dictated. Rafa Urban, Nurse Practitioner, acting as scribe for signing physician.
[2021-07-18 17:11] LABS: Glucose,Whole Blood 107 mg/dL (75-99)
[2021-07-18] MEDS: PRAVASTATIN SODIUM 40 MG TAB PO SCH (19:11)
[2021-07-18 20:10] LABS: Glucose,Whole Blood 107 mg/dL (75-99)
[2021-07-19] MEDS: LEVOTHYROXINE 50 MCG TAB PO SCH (05:34)
[2021-07-19 07:10] LABS: Glucose,Whole Blood 129 mg/dL (75-99)
[2021-07-19] MEDS: INSULIN ASPART (NovoLOG) 100 UNIT/ML VIAL SQ SCH ×3 (08:24→17:55)
[2021-07-19] MEDS: APIXABAN 5 MG TAB PO SCH ×2 (08:40→20:36)
[2021-07-19] MEDS: hydroCHLOROthiazide 12.5 MG CAP PO SCH (08:40)
[2021-07-19 12:33] LABS: Glucose,Whole Blood 103 mg/dL (75-99)
[2021-07-19] MEDS: SODIUM CHLORIDE 0.9% 1,000 ML IV SCH (13:08)
--- NOTE | 2021-07-19 13:09 | P.PN ---
Subjective Progress Note Date: 07/19/21 This is a pleasant 66-year-old female patient who follows with Dr. DOUG Mata in the office. She has history of hypertension, hyperlipidemia, diabetes, hypothyroidism and paroxysmal atrial fibrillation for which she is anticoagulated on Eliquis. Presented to the emergency department with recurrent episodes of dizziness. She's been having these episodes since March at which time she did see Dr. Mata in the office and was recommended to undergo event monitoring but the patient declined. The episodes have been progressively getting more frequent. They last less than a minute. She's had no syncope. Melva upon presentation patient was in what appeared to be in atrial flutter/tachycardia with controlled ventricular response, subsequently converted to sinus mechanism and this morning of the time of my exam is back in atrial flutter/atrial tachycardia. She did have an episode of dizziness this morning at around 10 after 7 and rhythm strips were reviewed and showed a brief episode of PAT/PAF with RVR. Further review of rhythm strips were reviewed and showed very brief pauses at time of conversion with the maximum pause of 1.8 seconds. Pressure has been stable. X-ray values show normal electrolytes, troponins negative 3 and normal thyroid function. Upon examination the patient is re sting currently bed. She is currently not in sinus rhythm but is not aware of the arrhythmia. She's had no chest discomfort, shortness of breath, edema or palpitations. 07/19/2021 Patient was seen and examined resting comfortably in bed. She continues to have episodes of dizziness. Upon review of rhythm strips at times of her episodes it appears she's having brief runs of SVT. Vital signs have been relatively stable however she does have some bradycardia at times with heart rate in the low 50s. There has been no evidence of significant postconversion pauses. Echocardiogram with Doppler study showed a normal LV systolic function. Objective - Vital Signs Vital signs: Vital Signs Temp 97.9 F 07/19/21 07:15 Pulse 53 L 07/19/21 07:15 Resp 15 07/19/21 07:15 BP 118/78 07/19/21 07:15 Pulse Ox 98 07/19/21 07:15 Intake & Output 07/18/21 07/19/21 07/19/21 18:59 06:59 18:59 Intake Total 118 Balance 118 Intake: Oral 118 Other: # Voids 1 2 - Exam HEENT: Head is atraumatic, normocephalic. Pupils are equal, round. Sclerae anicteric. Conjunctivae are clear. Mucous membranes of the mouth are moist. Neck is supple. There is no elevated jugular venous pressure. No carotid bruit is heard. CHEST EXAMINATION: Clear to auscultation bilaterally. No wheezes rales or rhonchi. Respirations even and nonlabored. HEART EXAMINATION: Heart regular rate and rhythm, positive S1 and S2. No S3. No S4. Systolic murmur. ABDOMEN: Soft, nontender. Bowel sounds are heard. No organomegaly noted. EXTREMITIES: 2+ peripheral pulses with no evidence of peripheral edema and no calf tenderness noted. NEUROLOGIC EXAMINATION: Patient is awake, alert and oriented x3. - Labs CBC & Chem 7: 07/18/21 06:44 07/18/21 06:44 Labs: Abnormal Lab Results - Last 24 Hours (Table) 07/18/21 07/18/21 07/18/21 Range/Units 13:20 17:09 20:09 POC Glucose (mg/dL) 111 H 107 H 107 H (75-99) mg/dL 07/19/21 Range/Units 07:09 POC Glucose (mg/dL) 129 H (75-99) mg/dL Assessment and Plan Assessment: #1 symptoms of dizziness, brief but occurring several times a day and progressively becoming more frequent which correlates to runs of SVT #2 paroxysmal atrial fibrillation #3 hypertension #4 hyperlipidemia #5 hypothyroidism, currently euthyroid #6 diabetes mellitus type 2 Plan: From cardiology's perspective we will continue to monitor patient on telemetry. We will have the patient seen by Dr. Parsons tomorrow to be evaluated symptomatic SVT. She may require ablation. The above dictated assessment and findings were discussed with signing physician. The impression and plan of care have been directed as dictated. Acacia Urban, Nurse Practitioner, acting as scribe for signing physician.
--- NOTE | 2021-07-19 13:31 | P.PN ---
Subjective Progress Note Date: 07/19/21 Patient still have episodes of dizziness no chest pain no chest pain no shortness of breath Constitutional: No acute distress, conversant, pleasant Eyes: Anicteric sclerae, moist conjunctiva, no lid-lag PERRLA ENMT: NC/AT Oropharynx clear, no erythema, exudates Neck: Supple, FROM, no masses, or JVD No carotid bruits No thyromegaly Lungs: Clear to auscultation Clear to percussion Normal respiratory effort, no accessory muscle use Cardiovascular: Heart regular in rate and rhythm, No murmurs, gallops, or rubs No peripheral edema Abdominal: Soft Nontender, no guarding, rebound or rigidity Abdomen moving with respiration Normoactive bowel sounds No hepatomegaly, No splenomegaly No palpable mass No abdominal wall hernia noted Skin: Normal temperature, tone, texture, turgor No induration No subcutaneous nodules No rash, lesions No ulcers Extremities: No digital cyanosis No clubbing Pedal pulses intact and symmetrical Radial pulses intact and symmetrical Normal gait and station No calf tenderness Psychiatric:Alert and oriented to person, place and time Appropriate affect Intact judgement Neuro: Muscles Strength 5/5 in all 4 extremities Sensation to light touch grossly present throughout Cranial nerves II-XII grossly intact No focal sensory deficits Atrial fibrillation with episodes of SVTs and bradycardia cardiology is following May need ablation as per cardiology MRI of the brain is negative Continue to monitor and management as per cardiology Objective - Vital Signs Vital signs: Vital Signs Temp 97.9 F 07/19/21 07:15 Pulse 53 L 07/19/21 07:15 Resp 15 07/19/21 07:15 BP 118/78 07/19/21 07:15 Pulse Ox 98 07/19/21 07:15 Intake & Output 07/18/21 07/19/21 07/19/21 18:59 06:59 18:59 Intake Total 118 Balance 118 Intake: Oral 118 Other: # Voids 1 2 - Labs CBC & Chem 7: 07/18/21 06:44 07/18/21 06:44 Labs: Abnormal Lab Results - Last 24 Hours (Table) 07/18/21 07/18/21 07/19/21 Range/Units 17:09 20:09 07:09 POC Glucose (mg/dL) 107 H 107 H 129 H (75-99) mg/dL 07/19/21 Range/Units 12:32 POC Glucose (mg/dL) 103 H (75-99) mg/dL
[2021-07-19] MEDS: AMIODARONE 200 MG TAB PO SCH ×2 (16:18→20:37)
[2021-07-19 17:07] LABS: Glucose,Whole Blood 147 mg/dL (75-99)
[2021-07-19] MEDS: PRAVASTATIN SODIUM 40 MG TAB PO SCH (20:37)
[2021-07-19 20:51] LABS: Glucose,Whole Blood 136 mg/dL (75-99)
[2021-07-20] MEDS: SODIUM CHLORIDE 0.9% 1,000 ML IV SCH (01:59)
[2021-07-20] MEDS: LEVOTHYROXINE 50 MCG TAB PO SCH (05:38)
[2021-07-20 07:20] LABS: Glucose,Whole Blood 131 mg/dL (75-99)
[2021-07-20] MEDS: INSULIN ASPART (NovoLOG) 100 UNIT/ML VIAL SQ SCH (08:40)
[2021-07-20] MEDS: APIXABAN 5 MG TAB PO SCH (08:41)
[2021-07-20] MEDS: AMIODARONE 200 MG TAB PO SCH (08:41)
[2021-07-20] MEDS: hydroCHLOROthiazide 12.5 MG CAP PO SCH (08:41)
[2021-07-20 10:34] LABS: Basophils # (A) 0.06 X 10*3/uL (0.00-0.10); Basophils % (A) 1.1 %; Eosinophils # (A) 0.29 X 10*3/uL (0.04-0.35); Eosinophils % (A) 5.4 %; HCT 46.1 % (37.2-46.3); HGB 15.3 g/dL (12.0-15.0); Lymphocytes # (A) 1.63 X 10*3/uL (0.90-5.00); Lymphocytes % (A) 30.1 %; MCHC 33.2 g/dL (32.0-37.0); MCV 96.4 fL (80.0-97.0); Mean Platelet Volume 11.1 fL (9.5-12.2); Monocytes # (A) 0.46 X 10*3/uL (0.20-1.00); Monocytes % (A) 8.5 %; Neutrophils # (A) 2.97 X 10*3/uL (1.80-7.70); Neutrophils % (A) 54.7 %; Platelet Count 284 X 10*3/uL (140-440); RBC 4.78 X 10*6/uL (4.10-5.20); RDW 12.2 % (11.5-14.5); WBC 5.42 X 10*3/uL (4.50-10.00)
[2021-07-20 10:52] LABS: African American GFR (CKD) 90.3 (60.0-200.0); Albumin/Globulin Ratio 1.9 (1.60-3.17); Anion Gap 10.9 mmol/L (10.00-18.00); BUN/Creat Ratio 16.75 Ratio (12.00-20.00); Blood Urea Nitrogen 13.4 mg/dL (9.0-27.0); Calcium 9.4 mg/dL (8.7-10.3); Carbon Dioxide 23.1 mmol/L (20.0-27.5); Globulin 2.1 g/dL (1.6-3.3); Non-African American GFR(CKD) 77.9 (60.0-200.0); Total Bilirubin 0.5 mg/dL (0.30-1.20); Total Protein 6.1 g/dL (6.2-8.2)
[2021-07-20 10:53] VITALS: BP 126/78; PULSE 58; RESP 18; TEMP 97.6
--- NOTE | 2021-07-20 11:06 | P.PN ---
Subjective This is a pleasant 66-year-old female patient who follows with Dr. DUOG Mata in the office. She has history of hypertension, hyperlipidemia, diabetes, hypothyroidism and paroxysmal atrial fibrillation for which she is anticoagulated on Eliquis. Presented to the emergency department with recurrent episodes of dizziness. She's been having these episodes since March at which time she did see Dr. Mata in the office and was recommended to undergo event monitoring but the patient declined. The episodes have been progressively getting more frequent. They last less than a minute. She's had no syncope. She did have an episode of dizziness and rhythm strips were reviewed and showed a brief episode of PAT/PAF with RVR. Lab values show normal electrolytes, troponins negative 3 and normal thyroid function. Echocardiogram revealed EF 5560 percent, mild mitral regurgitation, mild tricuspid regurgitation. 07/20/2021 Patient was seen and examined resting comfortably in the bedside chair. She does continue to have episodes of dizziness with ambulation yesterday. Upon review of rhythm strips with Dr. Parsons, patient in atrial fibrillation with RVR. Patient is currently in sinus mechanism, heart rate in the 50s60s. She is currently maintained on amiodarone 400 mg twice a day, Eliquis 5 mg twice a day, hydrochlorothiazide 12.5 mg daily, Synthroid 50mcg daily, pravastatin 40 mg nightly. GENERAL: Well-appearing, well-nourished and in no acute distress. NECK: Supple without JVD or thyromegaly. LUNGS: Breath sounds clear to auscultation bilaterally. Respiration equal and unlabored. No wheezes, rales or rhonchi. HEART: Regular rate and rhythm without murmurs, rubs or gallops. S1 and S2 heard. EXTREMITIES: Normal range of motion, no edema. No clubbing or cyanosis. Peripheral pulses intact. ASSESSMENT Symptomatic atrial fibrillation with rapid ventricular response with symptoms of dizziness and palpitations Paroxysmal atrial fibrillation Hypertension Hyperlipidemia Hypothyroidism Type 2 Diabetes PLAN Rhythm strips reviewed by Dr. Parsons. Patient in atrial fibrillation with a ventricular response. Recommend continuing amiodarone taper 400mg BID for 7 days, 400mg Daily for 30 days, then 200mg daily thereafter. Plan for an ablation that'll be set up as an outpatient. From a cardiology perspective, patient can be discharge home today on current medical regimen and amiodarone taper. Follow up with Dr. Mata and Dr. Parsons as an outpatient. Nurse Practitioner note has been reviewed, I agree with a documented findings and plan of care. Patient was seen and examined. Objective - Vital Signs Vital signs: Vital Signs Temp 97.6 F 07/20/21 07:00 Pulse 58 L 07/20/21 08:00 Resp 18 07/20/21 08:00 BP 126/78 07/20/21 07:00 Pulse Ox 96 07/20/21 07:00 Intake & Output 07/19/21 07/20/21 07/20/21 18:59 06:59 18:59 Other: Voiding Method Toilet Toilet # Voids 3 2 - Labs CBC & Chem 7: 07/20/21 07:04 07/20/21 07:04 Labs: Abnormal Lab Results - Last 24 Hours (Table) 07/19/21 07/19/21 07/19/21 Range/Units 12:32 17:06 20:38 Hgb (12.0-15.0) g/dL Glucose (70-110) mg/dL POC Glucose (mg/dL) 103 H 147 H 136 H (75-99) mg/dL Total Protein (6.2-8.2) g/dL 07/20/21 07/20/21 07/20/21 Range/Units 07:04 07:04 07:19 Hgb 15.3 H (12.0-15.0) g/dL Glucose 146 H (70-110) mg/dL POC Glucose (mg/dL) 131 H (75-99) mg/dL Total Protein 6.1 L (6.2-8.2) g/dL
--- NOTE | 2021-07-20 14:54 | P.DS ---
Providers Date of admission: 07/20/21 08:08 Expected date of discharge: 07/20/21 Attending physician: Ilir Ramos MD Consults: 07/17/21 18:47 Consult Physician Routine Consulting Provider: Tadeo Rodriguez Consult Reason/Comments: a flutter Do you want consulting provider notified?: Yes 07/19/21 13:01 Consult Physician Routine Consulting Provider: Richard Parsons Consult Reason/Comments: symptomatic SVT Do you want consulting provider notified?: Yes, Notify in am [facility] Course: Discharge Diagnosis: Atrial fibrillation with rapid ventricular, paroxysmal Hypertension Hypothyroidism Diabetes mellitus type 2 Hospital Course: Patient is a 66-year-old female with a past medical history of atrial fibrillation, hypertension, and hypothyroidism as well as diabetes who presented to the hospital for complaints of dizziness. She is admitted for further monitoring. She was found have atrial fibrillation with runs of RVR that was symptomatic. She was seen by cardiology as well as electrophysiology. She was started on amiodarone. She was terminated stable for discharge home. Echocardiogram: Ejection fraction 55-60% MRI brain: No evidence of intracranial mass or infarct nonspecific white matter changes CT head: Negative Follow-up: Dr. Parsons in 2 weeks, outpatient ablation, Dr. Mata in 1-2 days, amiodarone taper, follow-up with Dr. Teague in 1-2 weeks. Recommend repeat TSH in 4-6 weeks. Patient seen and examined at bedside. Feeling better. Feels comfortable being discharged home. No other complaints currently. All questions answered. Vital signs reviewed and stable. General: non toxic, no distress, appears at stated age Derm: warm, dry Head: atraumatic, normocephalic, symmetric Eyes: EOMI, no lid lag, anicteric sclera Mouth: no lip lesion, mucus membranes moist Cardiovascular: S1S2 reg, no murmur, positive posterior tibial pulse bilateral, Lungs: CTA bilateral, no rhonchi, no rales , no accessory muscle use Abdominal: soft, nontender to palpation, no guarding, no appreciable organomegaly Ext: no gross muscle atrophy, no edema, no contractures Neuro: CN II-XI grossly intact, no focal neuro deficits Psych: Alert, oriented, appropriate affect A total of 27 minutes of time were spent preparing this complex discharge summary . Patient Condition at Discharge: Good Plan - Discharge Summary Discharge Rx Participant: No New Discharge Prescriptions: New Amiodarone [Cordarone] See Taper PO BID 120 Days #240 tab Meclizine [Antivert] 12.5 mg PO Q6H PRN 30 Days #60 tablet PRN Reason: Drowsiness Continue Levothyroxine Sodium [Synthroid] 50 mcg PO DAILY Apixaban [Eliquis] 5 mg PO BID #60 tab Pravastatin Sodium [Pravachol] 40 mg PO HS Hydrochlorothiazide [hydroCHLOROthiazide] 12.5 mg PO DAILY Metoprolol Tartrate [Lopressor] 12.5 mg PO BID metFORMIN HCL ER [Glucophage XR] 500 mg PO DAILY Discharge Medication List Levothyroxine Sodium [Synthroid] 50 mcg PO DAILY 05/22/14 [History] Apixaban [Eliquis] 5 mg PO BID #60 tab 11/25/16 [Rx] Hydrochlorothiazide [hydroCHLOROthiazide] 12.5 mg PO DAILY 08/22/18 [History] Pravastatin Sodium [Pravachol] 40 mg PO HS 08/22/18 [History] Metoprolol Tartrate [Lopressor] 12.5 mg PO BID 07/07/20 [History] metFORMIN HCL ER [Glucophage XR] 500 mg PO DAILY 07/17/21 [History] Meclizine [Antivert] 12.5 mg PO Q6H PRN 30 Days #60 tablet 07/18/21 [Rx] Amiodarone [Cordarone] See Taper PO BID 120 Days #240 tab 07/20/21 [Rx] Follow up Appointment(s)/Referral(s): Richard Parsons MD [STAFF PHYSICIAN] - 1 Week Sara Mtaa MD [STAFF PHYSICIAN] - 2 Weeks Babak Fiore MD [Primary Care Provider] - 1-2 days Activity/Diet/Wound Care/Special Instructions: Activity: as tolerated Diet: Heart Healthy Special Instructions: Take Levothyroxine away from other medications, first thing in the morning TSH in 4-6 weeks to check thyroid level Discharge Disposition: HOME SELF-CARE
== END 2021-07-20 12:23 | disposition home or self-care (01) ==
LOC: EC 14:39 → 6NMEDSUR 18:48 → OBSVTOIN 07-20 08:08 → INTOOBSV 07-20 08:08 → UNDODISIN 07-20 12:23
PROVIDERS: ADMIT Internal Medicine; ATTEND Internal Medicine
DX: I48.0 Paroxysmal atrial fibrillation (principal); I48.92 Unspecified atrial flutter; I47.1 Supraventricular tachycardia; I10 Essential (primary) hypertension; I08.1 Rheumatic disorders of both mitral and tricuspid valves; E03.9 Hypothyroidism, unspecified; E11.9 Type 2 diabetes mellitus without complications; E78.5 Hyperlipidemia, unspecified; R00.1 Bradycardia, unspecified; F32.A Depression, unspecified; Z20.822 Contact with and (suspected) exposure to COVID-19; Z79.01 Long term (current) use of anticoagulants; Z79.84 Long term (current) use of oral hypoglycemic drugs; Z79.890 Hormone replacement therapy; Z79.899 Other long term (current) drug therapy; Z90.49 Acquired absence of other specified parts of digestive tract; Z87.891 Personal history of nicotine dependence; Z98.890 Other specified postprocedural states; Z82.49 Family history of ischemic heart disease and other diseases of the circulatory system; Z83.3 Family history of diabetes mellitus; Z80.0 Family history of malignant neoplasm of digestive organs; Z80.1 Family history of malignant neoplasm of trachea, bronchus and lung; Z80.3 Family history of malignant neoplasm of breast; Z83.49 Family history of other endocrine, nutritional and metabolic diseases
CPT/HCPCS: 99285; 36415; 93005; 93306; 85379; 84439; 84481; 80053 ×3; 83735; 84443; 84484; 85025 ×3; 85610; 85730; 81003; 87635 ×2; 71045; 70450; 70551; G0378 ×4

== ENCOUNTER → 2021-08-03 | Outpatient (CLI) | payer BC ==
[2021-08-03 11:24] LABS: HCT 46.9 % (34.0-46.0); HGB 15.6 gm/dL (11.4-16.0); MCH 32.9 pg (25.0-35.0); MCHC 33.1 g/dL (31.0-37.0); MCV 99.1 fL (80.0-100.0); Platelet Count 305 k/uL (150-450); RBC 4.73 m/uL (3.80-5.40); RDW 12.6 % (11.5-15.5); WBC 6.7 k/uL (3.8-10.6)
[2021-08-03 11:29] LABS: Potassium 4.1 mmol/L (3.5-5.1)
== END | disposition home or self-care (01) ==
LOC: LABPAT 09:42
PROVIDERS: ATTEND Internal Medicine Clinical Cardiac Electrophysiology
DX: Z01.818 Encounter for other preprocedural examination (principal); Z01.812 Encounter for preprocedural laboratory examination; I48.0 Paroxysmal atrial fibrillation
CPT/HCPCS: 80051; 82565; 84520; 85027; 36415; U0003; C9803

== ENCOUNTER 2021-08-04 12:23 | Day surgery (SDC) | payer BC ==
[2021-08-03 11:08] VITALS: BMI 32.1
[2021-08-04] MEDS ORDERED: SODIUM CHLORIDE 0.9% 1,000 ML IV ONE ×2 (12:40→15:46)
[2021-08-04 12:56] LABS: Glucose,Whole Blood 107 mg/dL (75-99)
[2021-08-04] MEDS ORDERED: LIDOCAINE 1% INJ 10MG/ML (20 ML MDV) ONE (13:58)
[2021-08-04] MEDS ORDERED: HEPARIN SODIUM 1,000 UN/ML (10ML VL) ONE (13:59)
[2021-08-04] MEDS ORDERED: HEPARIN SOD,PORK IN 0.45% NACL 25,000 UNIT in 0.45% NACL 1 250ML.BAG IV ONE (14:05)
[2021-08-04] MEDS ORDERED: LIDOCAINE 1% INJ 10MG/ML (20 ML MDV) SQ ONE ×2 (14:23→14:24)
[2021-08-04] MEDS ORDERED: IOPAMIDOL-370 100ML BTL INJ ONE ×2 (16:21)
--- NOTE | 2021-08-04 16:41 | P.HPCAR ---
History of Present Illness This is Dr. Parsons dictating an H/P on this patient The patient was interviewed and examined IMPRESSION / ASSESSMENT: Paroxysmal atrial fibrillation RVR, symptomatic Hypertension, well controlled Type 2 diabetes, hemoglobin A1c 6.0 Dyslipidemia with an LDL of 84 mg/dL on Pravachol 40 mg daily PLAN: Proceed with pulmonary vein isolation for management of paroxysmal atrial fibrillation Stop amiodarone Switch from pravastatin to rosuvastatin 20 mg by mouth daily and an LDL goal of well below 70 mg/dL, preferably closer to 50 mg/dl Continue ELIQUIS HPI Patient continues to have palpitations despite oral amiodarone She was admitted to the hospital recently with very symptomatic paroxysmal atrial fibrillation with dizziness. She is noted an increase in the frequency since March. The episodes are getting more frequent and longer She has is mild postconversion pause 1.8 seconds ROS: No fever chills or rigors, no cough, phlegm or expectoration, no nausea, vomiting or diarrhea, no hematuria, dysuria, no musculoskeletal complaints, no strokes or seizures, no skin lesions. EXAMINATION: Blood pressure 129/52 mmHg pulse rate in the 70s normal respirations Breath sounds are clear no rhonchi no crackles Heart sounds S1 and S2 are normal no murmurs or gallop or rub No JVD Soft abdomen nontender No lower extremity edema REVIEW OF LABS, ECG & MEDICAL DATA Hemoglobin 15.6 Sodium 142, potassium 4.1 BUN 19 and creatinine 0.9 Hemoglobin A1c 6.0 AST 17 and ALT 21 Triglycerides 89, total was 148, LDL 84 and HDL 46 TSH 1.5 Physical Exam Vitals: Vital Signs Temp Pulse Resp BP Pulse Ox 08/04/21 12:54 99 F 43 L 16 139/79 97 Intake and Output 08/04/21 08/04/21 08/04/21 06:59 14:59 22:59 Intake Total 1019 100 Balance 1019 100 Intake: IV 1019 100 Other: Weight 85.9 kg Past Medical History Past Medical History: Atrial Fibrillation, Diabetes Mellitus, Hyperlipidemia, Hypertension, Thyroid Disorder Additional Past Medical History / Comment(s): Type II diabetes, hypothyroidism. See Dr. Michel's H&P. History of Any Multi-Drug Resistant Organisms: None Reported Past Surgical History: Adenoidectomy, Cholecystectomy, Orthopedic Surgery, Tonsillectomy Additional Past Surgical History / Comment(s): Colonoscopy 2020, ankle surgery. Past Anesthesia/Blood Transfusion Reactions: No Reported Reaction, Motion Sickness Smoking Status: Former smoker - Past Family History Father Family Medical History: Cancer, Coronary Artery Disease (CAD), Diabetes Mellitus, Liver Disease Additional Family Medical History / Comment(s): Father had liver cancer and at the age of 67yrs. Mother Family Medical History: Cancer Additional Family Medical History / Comment(s): Grave's dx, from lung cancer with mets at the age of 72 yrs. Brother(s) Family Medical History: Cancer, Myocardial Infarction ([place]) Additional Family Medical History / Comment(s): 2 brothers had MIs. One brother had colon cancer. Sister(s) Family Medical History: Cancer Additional Family Medical History / Comment(s): Half-sister had breast cancer. Daughter(s) Additional Family Medical History / Comment(s): Congenital heart defect including pulmonary valve stenosis and ASD. Physical Examination Vital Signs Temp Pulse Resp BP Pulse Ox 08/04/21 12:54 99 F 43 L 16 139/79 97 Intake and Output 08/04/21 08/04/21 08/04/21 06:59 14:59 22:59 Intake Total 1019 100 Balance 1019 100 Intake: IV 1019 100 Other: Weight 85.9 kg Results Current Medications Generic Name Dose Route Start Last Admin Trade Name Freq PRN Reason Stop Dose Admin Sodium Chloride 1,000 mls @ 20 mls/hr 08/04/21 06:02 Saline 0.9% IV 09/03/21 06:03 .Q24H GUERO Intake and Output 08/04/21 08/04/21 08/04/21 06:59 14:59 22:59 Intake Total 1019 100 Balance 1019 100 Intake: IV 1019 100 Other: Weight 85.9 kg Patient Weight 08/05/21 06:59 Weight 85.9 kg
[2021-08-04] MEDS ORDERED: HYDROmorphone 0.5 MG/0.5 ML SYRINGE IVP ONE (16:43)
--- NOTE | 2021-08-04 16:48 | P.PRLE ---
RE: Juliet Mckenna Dear Dudley Chung is been experiencing recurrent palpitations and we have documented paroxysmal atrial fibrillation associated with dizzy spells She underwent successful pulmonary vein isolation and prior to the procedure well However, on intracardiac echo, while evaluating the left atrial appendage I got a good look at her coronary arteries especially the left circumflex in a longitudinal view While the vessel was patent, it was heavily calcified all along its course in the proximal portion without evidence of occlusive She is a diabetic with a hemoglobin A1c of 6.0 but her LDL is 84 mg/dL on pravastatin 40 mg by mouth daily She is a nonsmoker and her blood pressure is also well controlled I have recommended that she switch to rosuvastatin 20 mg by mouth daily and get her LDL down well below 50 mg/dL to reduce her future cardiovascular events She will continue ELIQUIS at 5 mg by mouth twice a day but I will stop amiodarone Thank you for entrusting me with the care of the patient Warm regards Sincerely Richard Parsons
[2021-08-04 16:53] LABS: Glucose,Whole Blood 127 mg/dL (75-99)
[2021-08-04] MEDS ORDERED: ACETAMINOPHEN IV (For NPO) 1,000 MG in EMPTY BAG 1 BAG IVPB ONE (16:54)
[2021-08-04] MEDS ORDERED: ONDANSETRON 4 MG/2 ML VIAL IVP ONE (17:16)
--- NOTE | 2021-08-04 17:21 | P.EPPROC ---
- EP Procedure Note Electrophysiology Procedure Note: PROCEDURE A. fib ablation/PVI DIAGNOSIS Paroxysmal Atrial fibrillation, symptomatic RESULT No left atrial appendage mass seen on intracardiac echo Calcified left circumflex artery, extensive calcification all along the proximal portion of the vessel without stenosis Successful A. fib ablation/pulmonary vein isolation of all veins using cryo- ablation Complete entrance block in all 4 veins confirmed No evidence for phrenic nerve injury Esophageal deflection YES PROCEDURE DETAILS Patient was brought to the EP lab in a fasting state. Written informed consent was obtained prior to the procedure. Procedure performed under general anesthesia After initial muscle relaxant use, muscle relaxants were not given thereafter in order to assess phrenic nerve during procedure. Patient prepped and draped as per protocol Full cryo-set up with standard preparation of the cryoablation tools done. Femoral Venous access obtained on the right and left groins Venous and arterial Sheaths placed. Diagnostic catheters for the high right atrium, phrenic nerve stimulation and pacing, His bundle, RV and coronary sinus placed Intracardiac echo catheter placed. Long sheath placed in the right atrium Left and right transseptal catheterization performed under intracardiac echo guidance. Intravenous heparin with aCT above 300 Later, catheter positioning and balloon positioning in the left atrium, under intracardiac echo guidance Diagnostic EP study with Drug infusion/Isuprel. No inducible atrial fibrillation Coronary sinus pacing and recording Sinus cycle length 1367, NJ 170, QRS 82 and QT 483 ms AH 59 and HV 48 ms Sinus node recovery times at 600, 504 100 ms were 1498, 1509 and 1218 ms AV node Wenckebach block 470 ms On Isuprel AV node Wenckebach block 290 ms Transseptal catheterization performed RA pressure 14/7/10 LA pressure 18/8/12 Transseptal catheterization performed with standard sheath. The cryoablation sheath was then placed with an over the wire exchange without any acute complications. All 4 pulmonary veins were isolated in the following sequence: Left superior followed by left inferior followed by right superior followed by right inferior The cryo-ablation balloon was placed at the os of each vein 1.5 mL of IV dye was injected to confirm an occluded vein Goal during cryoablation was to achieve complete occlusion of the pulmonary vein, achieve -30 degrees C at 30 seconds and achieve -40 degrees C at 60 seconds and a time to effect of less than 60-90 seconds, . If not the balloon was repositioned to obtain this result After completion of Cryoblation with durations from 180-240 seconds, entrance block was confirmed with the Attain circular catheter in a roving fashion around the antrum of the pulmonary veins Phrenic nerve pacing was performed from the SVC, right innominate vein area and diaphragm voltage was monitored. Diaphragmatic contractions were also monitored manually for strength of contraction. Parameter goals for each cryo freeze Complete occlusion of the appropriate vein -30 degrees C by 30 seconds -40 degrees C by 60 seconds Minimum between minus 40-55 degrees C Thaw time greater than 10 seconds Balloon visualized by intracardiac echo The esophagus was intubated. Esophageal Temperature monitoring with a CIRCA catheter formed. Esophageal deflection for hypothermia of the esophagus below 30 degrees C Left superior pulmonary vein and left middle vein, isolated separately Complete isolation, entrance block Left inferior pulmonary vein Complete isolation, entrance block Right superior pulmonary vein, during phrenic nerve pacing and right middle vein, isolated separately Complete isolation, entrance block Right inferior pulmonary vein, during phrenic nerve pacing Complete isolation, entrance block At the end of the procedure the Achieve catheter was once again used to check for entrance block Phrenic nerve stimulation was performed to confirm diaphragmatic stimulation the end of the procedure Cine fluoroscopy was performed at the very end of the procedure to confirm movement of both diaphragms with inspiration and expiration At the end of the procedure the patient was extubated Heparin was reversed Venous sheaths were removed and hemostasis assured PROCEDURES PERFORMED Diagnostic EP study CS pacing and recording Left and right transseptal catheterization Catheter the mapping of the tachycardia (NOT 3D mapping) Intracardiac echocardiography Pulmonary vein isolation with transseptal and comprehensive EPS, [id number] Drug Infusion +[id number] Extended procedure on account of extra pulmonary veins on both sides requiring separate cryoablations
--- NOTE | 2021-08-04 17:26 | P.PN ---
Progress Note - Text Final impression Paroxysmal atrial fibrillation, symptomatic Successful cryoablation of all pulmonary veins Hypertension Type 2 diabetes, hemoglobin A1c 6.0 Elevated LDL despite pravastatin, 84 mg/dL Hypothyroidism Plan Losartan 25 mg by mouth daily Stop pravastatin and start rosuvastatin 20 mg by mouth daily Follow-up LDL in 8 weeks LDL goal of less than 50 mg/dL Baby aspirin Stop amiodarone Continue ELIQUIS Continue diabetes management Minimize alcohol consumption
[2021-08-04] MEDS: SODIUM CHLORIDE 0.9% 1,000 ML IV SCH (18:18)
[2021-08-04] MEDS: APIXABAN 5 MG TAB PO SCH (21:32)
[2021-08-04] MEDS: ACETAMINOPHEN TAB 325 MG TAB PO PRN (21:32)
[2021-08-05] MEDS: SODIUM CHLORIDE 0.9% 1,000 ML IV SCH (04:50)
[2021-08-05] MEDS ORDERED: LEVOTHYROXINE 50 MCG TAB PO SCH (06:30)
[2021-08-05 07:22] VITALS: BP 108/72; PULSE 55; RESP 15; TEMP 97.8
[2021-08-05] MEDS: APIXABAN 5 MG TAB PO SCH (08:06)
[2021-08-05] MEDS: ACETAMINOPHEN TAB 325 MG TAB PO PRN (08:11)
--- NOTE | 2021-08-05 10:39 | DS ---
DISCHARGE SUMMARY Mrs. Mckenna is a 66-year-old female who has paroxysmal symptomatic atrial fibrillation. Yesterday she underwent cryoablation of pulmonary veins. She is doing well today. She has no dizziness or lightheadedness. She is ambulating around, looks very comfortable. She has very mild pleuritic chest discomfort in the center of the chest, but on examination there is no pleural rub. Her blood pressure is normal at 108/72 mmHg. Heart rates are in the 50s and she has no JVD. Lungs are clear on auscultation. Heart sounds are normal. No gallop. No rub. No murmurs. Abdomen is soft. Groins have healed well. No pain. No tenderness. She has mild sore throat. IMPRESSION: 1. Paroxysmal atrial fibrillation, symptomatic, associated with dizziness. 2. Status post pulmonary vein isolation with cryoablation, isolation of all pulmonary veins. 3. Calcific coronary artery disease identified on intracardiac echo. Extensive calcification all along the coronary artery alongside the left atrial appendage, possibly left circumflex. This artery is patent but has calcification and evidence of block all along its course, which was visualized for almost 2 to 3 cm. The caliber of the artery is normal and there is no stenosis noted. 1. Type 2 diabetes. Hemoglobin A1c is 6.5, LDL of 84, on Pravachol 40 mg p.o. daily. 2. Hypertension, on hydrochlorothiazide. Patient is diabetic. PLAN: 1. Stop amiodarone. 2. Stop metoprolol. 3. Stop hydrochlorothiazide. 4. Stop pravastatin. 5. Start losartan 25 mg p.o. daily. 6. Start rosuvastatin mg p.o. daily. 7. Follow-up lipid panel with an LDL goal of less than 50 mg/dL, given the extent of involvement of the coronary arteries and diabetic status, which is well controlled. 8. Continue Eliquis. 9. Continue levothyroxine. 10.Minimize alcohol use. 11.Gradual reintroduction and diet as advised. I will see her again in the next 1 to 2 weeks. If she has any problems in the next few days, she will call us. Otherwise, given some instructions for the next couple of days. MMODL / IJN: [id number] /
[2021-08-06] MEDS ORDERED: metFORMIN 500 MG TAB PO SCH (21:00)
== END 2021-08-05 09:33 | disposition home or self-care (01) ==
LOC: CATHEP 12:23 → 6NMEDSUR 17:11 → CATHEP 08-05 09:33
PROVIDERS: ATTEND Internal Medicine Clinical Cardiac Electrophysiology
DX: I48.0 Paroxysmal atrial fibrillation (principal); I10 Essential (primary) hypertension; E11.9 Type 2 diabetes mellitus without complications; E03.9 Hypothyroidism, unspecified; Z20.822 Contact with and (suspected) exposure to COVID-19
CPT/HCPCS: 93656; 93623; 87635; J2405; J2001; J0131; J1170; Q9967; J1644; 93609; 93662

== ENCOUNTER → 2021-11-25 | Outpatient (CLI) | payer BC ==
[2021-11-25 11:45] LABS: ALT 27 U/L (8-44); AST 27 U/L (13-35); African American GFR (CKD) 78.3 (60.0-200.0); Albumin 4.3 g/dL (3.8-4.9); Albumin/Globulin Ratio 1.59 (1.60-3.17); Alkaline Phosphatase 55 U/L (41-126); BUN/Creat Ratio 16.78 Ratio (12.00-20.00); Blood Urea Nitrogen 15.1 mg/dL (9.0-27.0); Calcium 9.4 mg/dL (8.7-10.3); Carbon Dioxide 25.1 mmol/L (20.0-27.5); Chloride 104 mmol/L (96-109); Chol/HDL Ratio 2.15 Ratio; Globulin 2.7 g/dL (1.6-3.3); Glucose 136 mg/dL (70-110); LDL Cholesterol,Calculated 23.2 mg/dL (0.0-131.0); Non-African American GFR(CKD) 67.6 (60.0-200.0); Potassium 4.1 mmol/L (3.5-5.5); Sodium 139 mmol/L (135-145)
== END | disposition home or self-care (01) ==
LOC: LABWHC1 07:06
PROVIDERS: ATTEND Nurse Practitioner Adult Health
DX: I10 Essential (primary) hypertension (principal); E11.65 Type 2 diabetes mellitus with hyperglycemia
CPT/HCPCS: 36415; 80053; 80061; 83036; 83735

== ENCOUNTER → 2022-06-07 | Outpatient (CLI) | payer BC ==
[2022-06-07 11:33] LABS: Basophils % (A) 1.5 %; Eosinophils # (A) 0.29 X 10*3/uL (0.04-0.35); Eosinophils % (A) 4.4 %; HCT 47.4 % (37.2-46.3); HGB 16.2 g/dL (12.0-15.0); Immature Grans, Automated 0.2 %; Lymphocytes # (A) 2.38 X 10*3/uL (0.90-5.00); Lymphocytes % (A) 36.4 %; MCH 32.1 pg (27.0-32.0); MCHC 34.2 g/dL (32.0-37.0); Mean Platelet Volume 10.6 fL (9.5-12.2); Monocytes % (A) 7.6 %; NRBC Per 100 WBC 0 /100 WBCS (0.0-0.0); Neutrophils # (A) 3.26 X 10*3/uL (1.80-7.70); Neutrophils % (A) 49.9 %; Platelet Count 295 X 10*3/uL (140-440); RBC 5.04 X 10*6/uL (4.10-5.20); RDW 12.2 % (11.5-14.5); WBC 6.54 X 10*3/uL (4.50-10.00)
[2022-06-07 11:47] LABS: ALT 37 U/L (8-44); AST 30 U/L (13-35); African American GFR (CKD) 89.7 (60.0-200.0); Albumin 4.2 g/dL (3.8-4.9); Albumin/Globulin Ratio 1.64 (1.60-3.17); Alkaline Phosphatase 53 U/L (41-126); Blood Urea Nitrogen 14.4 mg/dL (9.0-27.0); Carbon Dioxide 25.9 mmol/L (20.0-27.5); Chloride 105 mmol/L (96-109); Chol/HDL Ratio 2.16 Ratio; Globulin 2.6 g/dL (1.6-3.3); Glucose 122 mg/dL (70-110); LDL Cholesterol,Calculated 24.2 mg/dL (0.0-131.0); Non-African American GFR(CKD) 77.4 (60.0-200.0); Sodium 142 mmol/L (135-145); Total Protein 6.8 g/dL (6.2-8.2)
[2022-06-07 11:48] LABS: Microalbumin Creatinine Ratio <30 mg/g Creat (0-30)
== END ==
LOC: LABWHC1 05-28 08:11
PROVIDERS: ATTEND Family Medicine
DX: E11.65 Type 2 diabetes mellitus with hyperglycemia (principal); Z87.891 Personal history of nicotine dependence; Z79.4 Long term (current) use of insulin
CPT/HCPCS: 36415; 80053; 80061; 82043; 82570; 83036; 84443; 85025

== ENCOUNTER → 2023-01-14 | Outpatient (CLI) | payer BC ==
--- NOTE | 2023-01-17 10:30 | MM ---
Reason for Exam: Screening (asymptomatic). Last mammogram was performed 1 year(s) and 7 month(s) ago. Patient History: Menarche at age 14. First Full-Term at age 24. Postmenopausal. Patient has history of breast feeding. Patient used Hormonal Contraceptives for 1 year. Sister had breast cancer, age 50. Risk Values: Alyce 5 year model risk: 3.2%. NCI Lifetime model risk: 11.7%. Prior Study Comparison: 11/19/2014 Right Diagnostic Mammogram, [facility]. 09/16/2017 Bilateral Screening Mammogram, [facility]. 03/14/2019 Bilateral Screening Mammogram, [facility]. 06/18/2020 Bilateral Diagnostic Mammogram, [facility]. 06/19/2021 Bilateral Screening Mammogram, [facility]. Tissue Density: There are scattered fibroglandular densities. Findings: Analyzed By CAD. A few scattered small benign-appearing round calcifications bilaterally are redemonstrated. There is no suspicious group of microcalcifications or new suspicious mass in either breast. Overall Assessment: Benign, BI-RAD 2 Management: Screening Mammogram of both breasts in 1 year. . Patient should continue monthly self-breast exams. A clinical breast exam by your physician is recommended on an annual basis. This exam should not preclude additional follow-up of suspicious palpable abnormalities. Note on Alyce scores and lifetime risk: 1. A Alyce score greater than 3% is considered moderate risk. If this is the case, consider specialist referral to assess eligibility for a risk reducing agent. 2. If overall lifetime risk for the development of breast cancer is 20% or higher, the patient may qualify for future screening with alternating mammogram and breast MRI. Electronically signed and approved by: Casimiro Pryor M.D.
== END | disposition home or self-care (01) ==
LOC: RADMAMWWP 06:54
PROVIDERS: ATTEND Family Medicine
DX: Z12.31 Encounter for screening mammogram for malignant neoplasm of breast (principal); Z78.0 Asymptomatic menopausal state; Z80.3 Family history of malignant neoplasm of breast
CPT/HCPCS: 77067

== ENCOUNTER → 2023-07-15 | Outpatient (CLI) | payer MEDICARE ==
[2023-07-15 11:03] LABS: Basophils # (A) 0.06 X 10*3/uL (0.00-0.10); Basophils % (A) 1.4 %; Eosinophils # (A) 0.14 X 10*3/uL (0.04-0.35); Eosinophils % (A) 3.2 %; HCT 44.3 % (37.2-46.3); Lymphocytes % (A) 36.4 %; MCH 31.9 pg (27.0-32.0); MCHC 33.9 g/dL (32.0-37.0); MCV 94.3 FL (80.0-97.0); Mean Platelet Volume 10.3 FL (9.5-12.2); Monocytes # (A) 0.37 X 10*3/uL (0.20-1.00); Monocytes % (A) 8.4 %; NRBC Per 100 WBC 0 X 10*3/uL (0.00-0.01); Neutrophils # (A) 2.22 X 10*3/uL (1.80-7.70); Neutrophils % (A) 50.4 %; Platelet Count 277 X 10*3/uL (140-440); RDW 12.5 % (11.5-14.5)
[2023-07-15 11:11] LABS: ALT 23 U/L (8-44); AST 25 U/L (13-35); Albumin 4.2 g/dL (3.8-4.9); Albumin/Globulin Ratio 1.83 Ratio (1.60-3.17); Alkaline Phosphatase 50 U/L (41-126); BUN/Creat Ratio 16.38 Ratio (12.00-20.00); Blood Urea Nitrogen 13.1 mg/dL (9.0-27.0); Calcium 9.7 mg/dL (8.7-10.3); Carbon Dioxide 27.3 mmol/L (21.6-31.8); Chloride 105 mmol/L (96-109); Chol/HDL Ratio 1.94 Ratio; Globulin 2.3 g/dL (1.6-3.3); Glucose 134 mg/dL (70-110); LDL Cholesterol,Calculated 24.1 mg/dL (0.0-131.0); Potassium 3.8 mmol/L (3.5-5.5); Sodium 144 mmol/L (135-145); T4, Free (Free Thyroxine) 1.46 ng/dL (0.80-1.80); Total Bilirubin 0.8 mg/dL (0.3-1.2); Total Protein 6.5 g/dL (6.2-8.2); VLDL Calculation 18.58 mg/dL (5.00-40.00)
== END | disposition home or self-care (01) ==
LOC: LABWHC1 07:19
PROVIDERS: ATTEND Family Medicine
DX: E11.65 Type 2 diabetes mellitus with hyperglycemia (principal); E06.3 Autoimmune thyroiditis
CPT/HCPCS: 36415; 80053; 80061; 82043; 82570; 83036; 84439; 84443; 84481; 85025

== ENCOUNTER → 2023-08-29 | Outpatient (CLI) | payer MEDICARE ==
--- NOTE | 2023-08-29 11:49 | BD ---
EXAMINATION TYPE: Axial Bone Density DATE OF EXAM: 08/29/2023 CLINICAL HISTORY: 68 years old Female. ICD-10 CODE: M89.9 DISORDER OF BONE, UNSPECIFIED Height: 63 in Weight: 162 lbs FRAX RISK QUESTIONS: History of Fracture in Adulthood: rt ankle fx age 62, rt elbow age 37 RISK FACTORS HISTORY OF: Active: yes Diet low in dairy products/other sources of calcium: yes Postmenopausal woman: age 51 MEDICATIONS: Thyroid Medications: yes Which medication: Synthroid How Lon+ years Additional Medications: heart meds, cholesterol meds, blood thinner, blood pressure, beta eduard EXAM MEASUREMENTS: Bone mineral densitometry was performed using the [employer] System. Bone mineral density as measured about the Lumbar spine is: ----- L1-L4(G/cm2): 1.178 T Score Values are as follows: ----- L1: -1.3 ----- L2: -1.0 ----- L3: 1.3 ----- L4: 0.7 ----- L1-L4: 0.0 Z Score Values are as follows: ----- L1: 0.0 ----- L2: 0.3 ----- L3: 2.6 ----- L4: 2.0 ----- L1-L4: 1.3 Bone mineral density has: Decreased -1.8% since study of: 03/14/2019 Bone mineral density about the R hip (g/cm2): 0.863 Bone mineral density about the L hip (g/cm2): 0.911 T Score values are as follows: -----R Neck: -1.6 -----L Neck: -0.9 -----R Total: -1.2 -----L Total: -0.8 Z Score values are as follows: -----R Neck: -0.3 -----L Neck: 0.4 -----R Total: -0.1 -----L Total: 0.3 Bone mineral density has: Decreased -9.9% since study of: 03/14/2019 FRAX%s: The graph provided illustrates a 15.3% chance for a major osteoporotic fx and a 1.9% chance f or the hips probability for fx in 10 years time. IMPRESSION: Osteopenia (T Score between -2.5 and -1). There is slightly increased risk of fracture and the patient may be considered for treatment. Re-Screen 2-5 years. NOTE: T-SCORE=SD OF THE YOUNG ADULT MEAN.
== END | disposition home or self-care (01) ==
LOC: RADBDWWP 07:05
PROVIDERS: ATTEND Family Medicine
DX: M85.89 Other specified disorders of bone density and structure, multiple sites (principal); Z78.0 Asymptomatic menopausal state
CPT/HCPCS: 77080

== ENCOUNTER → 2024-02-03 | Outpatient (CLI) | payer BC ==
[2024-02-03 10:50] LABS: ALT 31 U/L (8-44); AST 26 U/L (13-35); Albumin 4.3 g/dL (3.8-4.9); Albumin/Globulin Ratio 1.79 Ratio (1.60-3.17); Alkaline Phosphatase 54 U/L (41-126); BUN/Creat Ratio 31.38 Ratio (12.00-20.00); Blood Urea Nitrogen 25.1 mg/dL (9.0-27.0); Calcium 9.4 mg/dL (8.7-10.3); Carbon Dioxide 22.8 mmol/L (21.6-31.8); Chloride 106 mmol/L (96-109); Globulin 2.4 g/dL (1.6-3.3); Glucose 116 mg/dL (70-110); LDL Cholesterol,Calculated 38.4 mg/dL (0.0-131.0); Potassium 4.3 mmol/L (3.5-5.5); Sodium 142 mmol/L (135-145); Total Bilirubin 0.5 mg/dL (0.3-1.2); Total Protein 6.7 g/dL (6.2-8.2); VLDL Calculation 15.52 mg/dL (5.00-40.00)
== END | disposition home or self-care (01) ==
LOC: LABWHC1 06:58
PROVIDERS: ATTEND Family Medicine
DX: E11.65 Type 2 diabetes mellitus with hyperglycemia (principal)
CPT/HCPCS: 36415; 80053; 80061; 83036

== ENCOUNTER → 2024-02-15 | Outpatient (CLI) | payer MEDICARE ==
--- NOTE | 2024-02-18 17:43 | MM ---
Reason for Exam: Screening (asymptomatic). Last mammogram was performed 1 year(s) and 1 month(s) ago. Patient History: Menarche at age 14. First Full-Term at age 24. Postmenopausal. Patient has history of breast feeding. Patient used Hormonal Contraceptives for 1 year. Sister had breast cancer, age 50. Risk Values: Alyce 5 year model risk: 3.2%. NCI Lifetime model risk: 11.3%. Prior Study Comparison: 06/18/2020 Bilateral Diagnostic Mammogram, [facility]. 06/19/2021 Bilateral Screening Mammogram, [facility]. 01/14/2023 Bilateral MG screening mammo w CAD, [facility]. Tissue Density: There are scattered areas of fibroglandular density. Findings: Analyzed By CAD. Benign oil cyst calcifications have developed on the right. Asymmetric density subareolar right MLO view due to nipple out of profile as no corresponding abnormality is seen on the CC view. There is no suspicious group of microcalcifications or new suspicious mass in either breast. Overall Assessment: Benign, BI-RAD 2 Management: Screening Mammogram of both breasts in 1 year. . Patient should continue monthly self-breast exams. A clinical breast exam by your physician is recommended on an annual basis. This exam should not preclude additional follow-up of suspicious palpable abnormalities. Note on Alyce scores and lifetime risk: 1. A Alyce score greater than 3% is considered moderate risk. If this is the case, consider specialist referral to assess eligibility for a risk reducing agent. 2. If overall lifetime risk for the development of breast cancer is 20% or higher, the patient may qualify for future screening with alternating mammogram and breast MRI. Electronically signed and approved by: Tristian Wang M.D. Radiologist
== END | disposition home or self-care (01) ==
LOC: RADMAMWWP 06:57
PROVIDERS: ATTEND Family Medicine
DX: Z12.31 Encounter for screening mammogram for malignant neoplasm of breast (principal); Z78.0 Asymptomatic menopausal state; Z80.3 Family history of malignant neoplasm of breast
CPT/HCPCS: 77067

== ENCOUNTER → 2024-07-23 | Outpatient (CLI) | payer MEDICARE ==
[2024-07-23 15:00] LABS: Basophils # (A) 0.08 X 10*3/uL (0.00-0.10); Basophils % (A) 1.4 %; Eosinophils # (A) 0.29 X 10*3/uL (0.04-0.35); Eosinophils % (A) 5.2 %; HCT 46.8 % (37.2-46.3); HGB 15.6 g/dL (12.0-15.0); Lymphocytes # (A) 2.21 X 10*3/uL (0.90-5.00); Lymphocytes % (A) 39.7 %; MCH 31.5 pg (27.0-32.0); MCHC 33.3 g/dL (32.0-37.0); MCV 94.5 FL (80.0-97.0); Mean Platelet Volume 9.8 FL (9.5-12.2); Monocytes % (A) 7.2 %; NRBC Per 100 WBC 0 X 10*3/uL (0.00-0.01); Neutrophils # (A) 2.58 X 10*3/uL (1.80-7.70); Neutrophils % (A) 46.3 %; Platelet Count 303 X 10*3/uL (140-440); RBC 4.95 X 10*6/uL (4.10-5.20); RDW 12.3 % (11.5-14.5); WBC 5.57 X 10*3/uL (4.50-10.00)
[2024-07-23 15:29] LABS: ALT 28 U/L (8-44); AST 24 U/L (13-35); Albumin/Globulin Ratio 1.67 Ratio (1.60-3.17); Alkaline Phosphatase 48 U/L (41-126); BUN/Creat Ratio 19.14 Ratio (12.00-20.00); Blood Urea Nitrogen 13.4 mg/dL (9.0-27.0); Calcium 9.2 mg/dL (8.7-10.3); Carbon Dioxide 25.4 mmol/L (21.6-31.8); Chloride 111 mmol/L (96-109); Chol/HDL Ratio 2.02 Ratio; Globulin 2.4 g/dL (1.6-3.3); Glucose 116 mg/dL (70-110); LDL Cholesterol,Calculated 37.4 mg/dL (0.0-131.0); Potassium 4.3 mmol/L (3.5-5.5); Sodium 145 mmol/L (135-145); Total Bilirubin 0.6 mg/dL (0.3-1.2); Total Protein 6.4 g/dL (6.2-8.2); VLDL Calculation 12.04 mg/dL (5.00-40.00)
[2024-07-23 20:17] LABS: Microalbumin Creatinine Ratio <10 mg/g Cr (0-30)
== END | disposition home or self-care (01) ==
LOC: LABWHC1 10:07
PROVIDERS: ATTEND Internal Medicine Clinical Cardiac Electrophysiology
DX: E78.5 Hyperlipidemia, unspecified (principal); I25.10 Atherosclerotic heart disease of native coronary artery without angina pectoris; I48.0 Paroxysmal atrial fibrillation; E11.9 Type 2 diabetes mellitus without complications; E06.3 Autoimmune thyroiditis
CPT/HCPCS: 36415; 80053; 80061; 82043; 82570; 83036; 83735; 84439; 84443; 84481; 85025

== ENCOUNTER → 2025-03-13 | Outpatient (CLI) | payer MEDICARE ==
--- NOTE | 2025-03-13 17:21 | MM ---
Reason for Exam: Screening (asymptomatic). Last screening mammogram was performed 12 month(s) ago. Patient History: Menarche at age 14. First Full-Term at age 24. Postmenopausal. Patient has history of breast feeding. Patient used Hormonal Contraceptives for 1 year. Sister had breast cancer, age 50. Risk Values: Alyce 5 year model risk: 3.2%. NCI Lifetime model risk: 10.8%. Prior Study Comparison: 06/19/2021 Bilateral Screening Mammogram, [facility]. 01/14/2023 Bilateral MG screening mammo w CAD, [facility]. 02/15/2024 Bilateral MG screening mammo w CAD, [facility]. Tissue Density: There are scattered areas of fibroglandular density. Findings: Analyzed By CAD. There is no suspicious group of microcalcifications or new suspicious mass in either breast. Overall Assessment: Negative, BI-RAD 1 Management: Screening Mammogram of both breasts in 1 year. See note below in regards to the patient's increased 5 year Alyce score. Patient should continue monthly self-breast exams. A clinical breast exam by your physician is recommended on an annual basis. This exam should not preclude additional follow-up of suspicious palpable abnormalities. Note on Alyce scores and lifetime risk: 1. A Alyce score greater than 3% is considered moderate risk. If this is the case, consider specialist referral to assess eligibility for a risk reducing agent. 2. If overall lifetime risk for the development of breast cancer is 20% or higher, the patient may qualify for future screening with alternating mammogram and breast MRI. [facility], , 03/13/2025 5:18 PM. Electronically signed and approved by: Tristian Wang M.D. Radiologist
== END | disposition home or self-care (01) ==
LOC: RADMAMWWP 14:43
PROVIDERS: ATTEND Family Medicine
DX: Z12.31 Encounter for screening mammogram for malignant neoplasm of breast (principal); R92.323 Mammographic fibroglandular density, bilateral breasts; Z78.0 Asymptomatic menopausal state; Z80.3 Family history of malignant neoplasm of breast; Z92.0 Personal history of contraception
CPT/HCPCS: 77067